=== PATIENT | male | born 1940 | race Caucasian/White ===

== ENCOUNTER 2024-10-31 14:34 | Inpatient (IN) | payer OTHER, SELFPAY ==
[2024-10-31 12:34] VITALS: BP 95/78
[2024-10-31] MEDS: LOW STRENGTH ASPIRIN 324 MG PO (12:41)
--- NOTE | 2024-10-31 12:48 | PTCARENOTE ---
Pt transferred from [facility] and arrived to recovery room at 1225. Pt awake, alert, and oriented x3. Pt ambulated from ambulance stretcher onto test lab technician recovery room stretcher. Pt appears JENKINS but denies feeling short of breath. Pulse ox
85% after ambulating to stretcher. Pt placed on 4L NC. Repeat pulse ox 91% on 2L NC. Lungs with rales all the way up. Claudia WARREN at pt bedside made aware and assessed pt's lung sounds. Dr Cheek at pt bedside and aware of pt's lung status.
Ham ordered to bring pt directly to test lab technician procedure room to start a right heart catheterization. Aspirin 81mg x 4 tablets given as ordered per Claudia WARREN. Pt taken into procedure room via stretcher with RN.
[2024-10-31 14:03] VITALS: BMI 27.1
--- NOTE | 2024-10-31 14:04 | HPS.HSE ---
Family Physician
-
Family Physician: NO INTERVIEW UNKNOWN
Chief Complaint
-
Syncope
History of Present Illness
Patient is an 84 y/o male past medical history of paroxysmal atrial fibrillation, hypertension, hyperlipidemia and hypothyroidism who was transferred from [facility] today for urgent cardiac catheterization. Patient initially presented to
[facility] last evening. He was admitted to the hospital after he had a syncopal, and was found to be hypoxic as well as in A-Fib with RVR. Overnight his troponin tended up significantly and he was transferred to [facility] for
cardiac catheterization. Patient seen post cardiac cath in the CVICU.
Medical History
Past Medical History
Past Medical History: Reports Other
Additional Past Medical History:
Severe Aortic Stenosis
Permanent Atrial Fibrillation
Essential Hypertension
Hyperlipidemia
CKD Stage IIIA
Hypothyroidism
GERD
Gout
Past Surgical History: Reports Other
Additional Past Surgical History:
Cholecystectomy
Social History
Tobacco: Former Smoker (Quit in 1995)
Alcohol: Occasional (Once a week)
Personal:
Living: With Family
Family History
Family History: Not pertinent
Allergies / Home Medications
Allergies reflects when Allergies were last updated in [facility]
Home Medications with original date entered in [facility].
Allergy/Medication List:
Allergies
Allergy/AdvReac Type Severity Reaction Status Date / Time
No Known Allergies Allergy Verified 10/31/24 12:41
Home Medications
allopurinol 100 mg tablet 100 mg BID 10/31/24
amlodipine 5 mg tablet 5 mg BID 10/31/24
apixaban 5 mg tablet 5 mg PO BID 10/31/24
levothyroxine 75 mcg tablet 75 mcg DAILY 10/31/24
lisinopril 10 mg tablet 10 mg DAILY 10/31/24
metoprolol tartrate 50 mg tablet 50 mg BID 10/31/24
multivitamin with iron-mineral tab 10/31/24
omega-3 fatty acids 1,000 mg PO DAILY 10/31/24
pravastatin 40 mg tablet 40 mg DAILY 10/31/24
Review of Systems
-
A 12 point ROS was completed and negative except as noted: Yes
Constitutional: Denies Fever
Respiratory: Reports Trouble Breathing; Denies Cough
Cardiac: Denies Chest Pain or Palpitations
Physical Exam
Vital Signs
Selected Entries
10/31/24
14:38 10/31/24
15:00
Pulse 107
Resp Rate 17
Blood pressure 107/88
SaO2 92
Physical Exam
General: Well Developed, Well Nourished and No Apparent Distress
HEENT: NormoCephalic, Anicteric, Moist mucous membranes, Atraumatic and Oxygen (Nasal Cannula @ 6L)
Respiratory: Clear and Non Labored Respirations; No Wheezes, Rales or Rhonchi
Cardiac: S1/S2 and Irregular Rhythm; No Tachycardia
GI: Soft, Non Tender and Non Distended
Rectal: Deferred by Provider
Musculoskeletal: No Clubbing, No Cyanosis and No Edema
Skin: Warm and Dry; No Rash
Neuro: Awake, Alert, Oriented and Nonfocal/grossly intact
Psych: Calm
Laboratory Results
-
Laboratory Data 10/31/24
WBC 10.4
Hgb 14.1
Hct 42.5
Plt 175
Na 136
K 5.2
Cl 103
CO2 18
BUN 27
Cr 1.69
Glu 217
Chest X-Ray 10/30/2024
Mild cardiomegaly with interstitial pulmonary edema
Renal/Bladder US 10/31/2024:
Unremarkable ultrasound of kidneys and bladder
Data Reviewed
-
Diagnostic Radiology: Report Reviewed by me
Lab Data: Labs Reviewed by me
Old Records: Reviewed
Impression/Plan
-
Acute Hypoxic Respiratory Failure secondary to Acute Heart Failure
-Continue supplemental oxygen
NSTEMI
-Patient underwent cardiac cath today with evidence of multivessel disease
-Continue heparin drip
-Management as per cardiology
Acute Heart Failure, suspect preserved EF
-[facility] records indicate known severe aortic stenosis
-Continue Lasix 80mg IV BID
-Monitor Is&Os and Daily Weights
VERENICE on CKD IIIA
-Appears baseline Cr ~1.2
-Consult Nephrology
-Monitor creatinine closely following contrast for cardiac cath and diuretics for heart failure
Elevated Glucose
-Check HgbA1c
-Continue diabetic diet
-Monitor sugars and continue coverage insulin
Permanent Atrial Fibrillation
-Rate is now controlled
-Currently on heparin drip for anticoagulation
Essential Hypertension
-BP running on the low side
-Hold all meds for now
Hyperlipidemia
-Change pravastatin to Lipitor
Hypothyroidism
-Continue levothyroxine
DVT proph: Heparin drip
Code Status: Full Code
[2024-10-31 14:38] VITALS: BP 107/88
--- NOTE | 2024-10-31 14:50 | CONSULT.CT ---
Consultation
-
Date/Time Consultation Requested: 10/31/24 14:30
Date/Time Consultation Performed: 10/31/24 15:00
Requesting Provider: Roldan Cheek MD
Performing Provider: Nolan Morrison PA-C
Reason for Consultation: CAD,
Patient History
Physicians
Family Physician: Laura Cm MD
Outpatient Food Concession Manager: Jose Luis Mehta MD
Inpatient Food Concession Manager: López Philip MD
History of Present Illness
84 year old male with h/o , AF (on Eliquis), HTN, HLD, CKD, hypothyroid, spinal stenosis who presented to [facility] with fatigue, dizziness, SOB after taking out the trash. He was found to have an elevated troponin (1745 that increased to 2545) and BNP
of 6806. He was given diuretic and transferred to [place] for cardiac workup. 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
Past Medical History
Past Medical History: Atrial Fib, GERD, HTN, Hypercholesterolemia and Hypothyroidism
CKD (baseline Cr 1.2), gout, spinal stenosis, nonalcoholic fatty liver disease
Past Surgical History
Past Surgical History: Cholecystectomy
Family History
Mother: at Age
Father: at Age (60-65) and Cause of ([place])
Social History
Alcohol: Occasional (once per week)
Drug: None
Tobacco: Former Smoker
Personal:
Living: With Spouse
Employment: Retired
Allergies
Allergy/AdvReac Type Severity Reaction Status Date / Time
No Known Allergies Allergy Verified 10/31/24 12:41
Home Medications
�Medication �Instructions �Recorded �Confirmed �Type
allopurinol 100 mg tablet 100 mg BID 10/31/24 10/31/24 History
amlodipine 5 mg tablet 5 mg BID 10/31/24 10/31/24 History
apixaban 5 mg tablet 5 mg PO BID 10/31/24 10/31/24 History
levothyroxine 75 mcg tablet 75 mcg DAILY 10/31/24 10/31/24 History
lisinopril 10 mg tablet 10 mg DAILY 10/31/24 10/31/24 History
metoprolol tartrate 50 mg tablet 50 mg BID 10/31/24 10/31/24 History
multivitamin with iron-mineral tab 10/31/24 History
omega-3 fatty acids 1,000 mg PO DAILY 10/31/24 10/31/24 History
pravastatin 40 mg tablet 40 mg DAILY 10/31/24 10/31/24 History
Review of Systems
-
History Source: Patient and Transfer Record
General: Reports Fatigue; Denies Fever, Weight Loss or Chills
HEENT: Reports Dysphagia (must chew food well); Denies Visual Changes or Sore Throat
Respiratory: Reports SOB and Cough; Denies JENKINS
Cardiac: Reports Known Vascular Disease and Palpitations; Denies Chest Pain, Nausea, Vomiting, Diaphoresis or Edema
Abdomen/GI: Reports Reflux; Denies Abdominal Pain
: Reports Frequency; Denies Dysuria, Incontinence or Urgency
Musculoskeletal: Reports Other (back pain due to spinal stenosis)
Skin: Denies Rash
Neurological: Reports Dizzy; Denies CVA
Vascular: Denies Claudication or PVD
Physical Exam
Vital Signs
Actual Weight 173 lb 10/31/24 14:03
Body Mass Index (BMI) 27.1 10/31/24 14:03
Exam
General: Well Developed and Well Nourished
HEENT: Normocephalic, Anicteric, Atraumatic, PERRLA and EOMI
Respiratory: Wheezes (occassional ); Negative Rhonchi
Cardiac: Irregular Rhythm; Negative Murmur
GI: Soft, Non Tender, Non Distended and Normal Bowel Sounds
Rectal: Deferred by Provider
Skin: Warm and Dry; Negative Rash
Neuro: AO x 3 and Nonfocal/Grossly Intact
Extremities: Negative Lower Level Edema
Psych: Calm
Assessment / Plan
-
3VCAD, known
patient is an 84 year old male who was found to have 3VCAD. His last dose of Eliquis was 10/30 at 21:00. Need time for Eliquis washout and renal recovery post LHC. Will need CYNDY to better evaluate and MR. STS risk calculation was done and
follows:
Procedure Type:�CABG + AVR
Perioperative Outcome Estimate %
Operative Mortality 15.6%
Morbidity & Mortality 36.2%
Stroke 2.91%
Renal Failure 15%
Reoperation 5.25%
Prolonged Ventilation 29.3%
Deep Sternal Wound Infection 0.235%
Long Hospital Stay (>14 days) 30%
Short Hospital Stay (<6 days)* 6.25%
Procedure Type:�Isolated CABG
Perioperative Outcome Estimate %
Operative Mortality 16%
Morbidity & Mortality 30.4%
Stroke 3.51%
Renal Failure 13.5%
Reoperation 5.21%
Prolonged Ventilation 19.6%
Deep Sternal Wound Infection 0.208%
Long Hospital Stay (>14 days) 25.2%
Short Hospital Stay (<6 days)* 10.5%
Will d/w Dr. Yang. Please see his addendum for further recommendations and plan.
Data Reviewed
-
EKG: Tracing Personally Visualized and interpreted
Downstairs Maid: Image Personally Visualized and interpreted and Discussed with Family
Labs: Labs Reviewed by me
Old Records: Reviewed
--- NOTE | 2024-10-31 14:51 | CON.INTV ---
Consultation
Consultation Request
Date/Time Consultation Requested: 10/31/2024 - 1423
Date/Time Consultation Performed: 10/31/2024 - 1439
Requesting Provider: Nahomy Ford PA-C
Performing Provider: Dr. López
Reason for Consultation: Shock
Medical History
-
Chief Complaint: Lightheadedness
History of Present Illness:
84-year-old male with a past medical history of aortic stenosis, A-fib on Eliquis, hyperlipidemia and CKD who presented to [facility] after syncopal event. Pt was originally going to go to ER due to RLE pain. He passed out while getting
into his car - 911 called and when they arrived he was in respiratory distress, tachycardic and diaphoretic. He was placed onto O2 and was hypoxic upon arrival to [facility] with SpO2 87% on NC (unclear how much flow). He was switched to BiPAP with
improved respiratory status. EKG showed A-fib with RVR with concerning EKG changes with inferior and anterolateral ST depressions with lateral T wave inversions. CXR also showed interstitial pulmonary edema. He was transferred here to [place]
for cardiac catheterization. Patient was hypotensive with concern for cardiogenic shock. Pnp/pulmonary service now consulted for additional management/recommendations.
When I saw the pt he was in bed in [facility], with daughter, Carmen, at bedside. Garcia is not a good historian. He currently feels well. He reportedly had a prior echo that showed a 'normal' EF, per the daughter. Currently, HR 95, SpO2 93% on 6L/min,
although the nasal cannula was nursing home out of his nose, and BP 99/79. He denies SOB at rest, chest pain, ALSTON, abd pain, N/V/f/c.
PMHx: Severe , permanent A-fib on Eliquis, gout, HTN, CKD IIIa, hypothyroidism, GERD, sciatica
PSHx: Cholecystectomy
Past Medical History
Past Medical History: Other (Above as per HPI)
Past Surgical History: Other (Above as per HPI)
Social History
Tobacco: Former Smoker (Quit 1995; 20 pack-year Hx)
Alcohol: Occasional (1-2 beers per week)
Drug: None
Personal:
Living: With Family
Family History
Family History: CAD and Hypertension
Allergies / Home Medications
Allergies
Allergy/AdvReac Type Severity Reaction Status Date / Time
No Known Allergies Allergy Verified 10/31/24 12:41
Home Medications
�Medication �Instructions �Recorded �Confirmed �Last Taken �Type
allopurinol 100 mg tablet 100 mg PO BID 10/31/24 10/31/24 Unknown History
amlodipine 5 mg tablet 5 mg PO BID 10/31/24 10/31/24 Unknown History
apixaban 5 mg tablet 5 mg PO BID 10/31/24 10/31/24 10/30/24 21:45 History
levothyroxine 75 mcg tablet 75 mcg PO DAILY 10/31/24 10/31/24 Unknown History
lisinopril 10 mg tablet 10 mg PO DAILY 10/31/24 10/31/24 Unknown History
metoprolol tartrate 50 mg tablet 50 mg PO BID 10/31/24 10/31/24 Unknown History
multivitamin with iron-mineral 1 tab PO DAILY 10/31/24 10/31/24 Unknown History
omega-3 fatty acids 1,000 mg PO BID 10/31/24 10/31/24 Unknown History
omeprazole 20 mg capsule,delayed 20 mg PO DAILY 10/31/24 10/31/24 Unknown History
release
pravastatin 40 mg tablet 40 mg PO DAILY 10/31/24 10/31/24 Unknown History
Review of Systems
-
History Source: Patient
All other systems: Negative unless noted
Vitals / Labs / Diagnostic Testing
Vital Signs
Pulse Resp BP Pulse Ox
107 17 107/88 92
10/31/24 15:00 10/31/24 15:00 10/31/24 14:38 10/31/24 15:00
Lab Data
10/31/24 14:51
Laboratory Results
10/31/24
14:51
APTT > 200 H*
Diagnostic Testing:
Physical Exam
-
HEENT: Normocephalic and Anicteric
Cardiovascular: Irregular Rhythm and Peripheral Edema (negative)
Respiratory: Wheeze (negative), Rales (bibasilar), Rhonchi (negative) and Non-Labored Respirations
GI: Soft, Non Distended, Non Tender and Normal Bowel Sounds
Neurology: AO x 3 and Tremors (negative)
Skin: Warm and Dry
General: Respiratory Distress (negative), Comfortable, Fever (negative) and Chills (negative)
Assessment
-
Assessment: 84-year-old male with a past medical history of aortic stenosis, A-fib on Eliquis, hyperlipidemia and CKD who presented to [facility] after syncopal event. EKG showed A-fib with RVR with concerning EKG changes with inferior and
anterolateral ST depressions with lateral T wave inversions. CXR also showed interstitial pulmonary edema. He was transferred here to [place] for cardiac catheterization. Patient was hypotensive with concern for cardiogenic shock.
Pnp/pulmonary service now consulted for additional management/recommendations.
Chronic medical conditions: Severe , CHF, permanent A-fib on Eliquis, gout, HTN, CKD IIIa, hypothyroidism, GERD, sciatica
Impression:
#Acute HFrEF
#Acute cardiogenic pulmonary edema
#Acute hypoxic respiratory failure
#Syncope
#Severe aortic stenosis
#Elevated troponin likely due to NSTEMI
#A-fib with RVR (on eliquis as outpatient for permanent A-fib)
#VERENICE on CKD
#Former tobacco smoker (20-PY Hx - quit 1995)
#Gout
#Hypothyroidism
#Sciatica
Plan:
- Patient transferred here to [facility] for left heart catheterization which showed multivessel CAD without good PCI targets
- CT surgery evaluation pending for evaluation for CABG
- Eliquis on hold
- Continue with heparin drip for now as well as high intensity statin
- As per cardiology, echo performed on 10/30/2024 showed severely decreased LVEF at 25-30% (down from 55%) with severe with low gradient across AV with apico-lateral hypokinesis
- Maintain SpO2 >94% with supplemental oxygen and wean down as tolerated
- Would obtain CXR; assure all medical records from [facility] are available for all providers to review
- Maintain MAP>65
- Although patient hypotensive, MAP is currently >85 and he is asymptomatic with no SOB or chest pain. 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
avoid inotropes as this will raise myocardial oxygen demand and could worsen myocardial injury in this acute period of time
- Start IV lasix as BP tolerates
- Renally dose all meds; trend UOP and sCr; strict I/O
- Replete electrolytes with K>4, Mg>2
- Continue levothyroxine
- Maintain euglycemia with goal BG 140-180
- Trend H/H and transfuse if needed to keep Hb>7g/dL; keep plt>20k, unless there is concern for bleeding then keep plt>50k
- prn nebulized bronchodilators - not currently bronchospastic
- Incentive spirometer encouraged 10x per hour for at least 4 hrs a day
- DVT ppx - heparin gtt
Code status: Full code
Pnp services will continue to follow along while patient remains in the CVICU.
Critical care statement: A total of 38 minutes of critical care time was provided for this patient today. This includes management of unstable vital signs, evaluation of the patient at bedside, reviewing the patient's pertinent medical records
including radiographs, microbiology, laboratory evaluations, and discussion with primary team, consultants, pharmacy, nutrition, physical therapy, case management, charge nurse, critical care nursing, and respiratory therapy.
[2024-10-31 15:11] LABS: Hematocrit 41.4 % (39.0-52.0); Mean Corp Hgb Conc. 33.8 g/dL (33.0-37.0); Mean Corpuscular Hgb 29.1 pg (27.0-31.0); Mean Corpuscular Volume 86.1 fL (80.0-94.0); Mean Platelet Volume 11.9 fL (7.4-10.4); Platelet Count 189 10^3/uL (130-400); Red Blood Cell Count 4.81 10^6/uL (4.70-6.10); Red Cell Dist. Width 14.6 % (11.5-14.5); White Blood Cell Count 18.2 10^3/uL (4.8-10.8)
--- NOTE | 2024-10-31 15:45 | CM ---
Reviewed chart. Met with Mr. Dunn to review discharge plans. He states prior to admission he resides withhis spouse in a one story home with one step to enter. He states prior to admission he was ambulating with a walker. He states he has a
walker and single point cane at home. He states he has a prescription plan and uses [facility]. He states he has never had [facility]. He states his spouse has had [facility]. Will need to see his current functional level to see if he
will have any skilled care needs. Medical work-up in progress. The discharge plan is to reutn home with his spouse and [facility] Services if idicated when medically stable.
[2024-10-31 15:51] LABS: APTT > 200 Sec (23.4-35.0)
--- NOTE | 2024-10-31 16:02 | W.PN.UPDATE ---
Update Note
Progress Note Update
HPI: 84 y/o male past medical history of Permanent atrial fibrillation, hypertension, hyperlipidemia, hypothyroidism; who was transferred from [facility] for urgent cardiac catheterization. Patient initially presented to [facility]
the evening prior for syncope. He was also found to be hypoxic with A-Fib in RVR. Overnight his troponin tended up significantly and he was transferred to [facility] for cardiac catheterization. Patient seen post cardiac cath in the CVICU.
A/P:
# Acute Hypoxic Respiratory Failure secondary to Acute Heart Failure
Continue supplemental oxygen
Continue Lasix 80mg IV BID
# NSTEMI
Patient underwent cardiac cath 10/31 with evidence of multivessel disease. Follow formal report.
Continue heparin drip per gas brazer
Management as per cardiology
# Acute Heart Failure, suspect preserved EF
# Known severe aortic stenosis
Continue Lasix 80mg IV BID
Monitor Is&Os and Daily Weights
# VERENICE on CKD IIIA
Appears baseline Cr ~1.2
Consult Nephrology
Monitor creatinine closely following contrast for cardiac cath and diuretics for heart failure
# Elevated Glucose
Check HgbA1c
Continue diabetic diet
Monitor sugars and continue coverage insulin
# Permanent Atrial Fibrillation
Rate is now controlled
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
# Essential Hypertension
BP running on the low side
Hold all meds for now
# Hyperlipidemia
Change pravastatin to Lipitor
# Hypothyroidism
Continue levothyroxine
DVT proph: Heparin drip
Code Status: Full Code
--- NOTE | 2024-10-31 16:09 | PTCARENOTE ---
received patient from orthodontic lab technician. TR band on R Radial site with 6cc air. Pulse ox 98% NRB. weaned to 6L nc. pulse ox 94% on R hand. Pulses palpablex4. R groin site c/d/i. AFIB on monitor. HR 90s. VSS. no complaints at this time. EKG and labs drawn as
ordered. will restart hep gtt as ordered. daughter at bedside helping with admission questions. will continue to monitor.
[2024-10-31 16:12] VITALS: BP 99/79
[2024-10-31 16:21] VITALS: BMI 27.1
--- NOTE | 2024-10-31 16:43 | CON.CAR ---
Consultation
Consultation Request
Performing Provider: BRIANA Bernard for López Philip MD
Reason for Consultation: NSTEMI, Acute on chronic HFrEF
Medical History
-
History of Present Illness:
Garcia Dunn is an 84 year old male patient of Dr. Mehta with the PMH of severe , persistent AF, HTN, HLD and CKD3 who presented to the Emergency room for evaluation after a syncopal event. Pt was initially coming to the ED with his family for
evaluation of R leg pain with known sciatica. While getting into his vehicle he had a syncopal event and 911 was called. EMS found him diaphoretic, tachycardic and SOB with audible wheezing. Supplemental 02 was given and upon arrival to the ED he
was 87% on NC with HR 110bpm and RR 39. NC was upgraded to Bipap with improvement. CXR showed interstitial pulmonary edema. EKG showed AF with RVR with inferior and anterolateral ST depressions and lateral TWI�s.
Treated with IV lasix, IV diltiazem, IV heparin.
Lactic acid 8.5, HS troponin 4125, peak CK/MB 1438/162.
An echo yesterday showed severely decreased LVSF 25-30% (down from 55%) with severe with low gradients and apical lateral HK.
Transferred today for LHC/RHC. On arrival he was on 4LNC and dyspneic with HR AFib 100s, SBP 90s.
Past Medical History
Past Medical History: Arrhythmias (PAF), CHF (acute on chronic systolic HFrEF), GERD, HTN, Hypercholesterolemia, Hypothyroidism, Renal Failure (CKD3a), Valvular Disease (Severe , Mild-Mod MR) and Other (Thrombophilia, Lumbar spinal stenosis
w/radiculopathy, impaired fasting glucose, fatty liver, gout)
Past Surgical History: Appendectomy and Other (cataract extraction)
Social History
Tobacco: Former Smoker (20pyh, quit 1995)
Alcohol: Occasional (1-2 beers once a week)
Drug: None
Personal:
Living: With Family
Employment: Retired
Family History
Family History: CAD and Hypertension
Allergies / Home Medications
Allergy/AdvReac Type Severity Reaction Status Date / Time
No Known Allergies Allergy Verified 10/31/24 12:41
�Medication �Instructions �Recorded �Confirmed �Type
allopurinol 100 mg tablet 100 mg PO BID 10/31/24 10/31/24 History
amlodipine 5 mg tablet 5 mg PO BID 10/31/24 10/31/24 History
apixaban 5 mg tablet 5 mg PO BID 10/31/24 10/31/24 History
levothyroxine 75 mcg tablet 75 mcg PO DAILY 10/31/24 10/31/24 History
lisinopril 10 mg tablet 10 mg PO DAILY 10/31/24 10/31/24 History
metoprolol tartrate 50 mg tablet 50 mg PO BID 10/31/24 10/31/24 History
multivitamin with iron-mineral 1 tab PO DAILY 10/31/24 10/31/24 History
omega-3 fatty acids 1,000 mg PO BID 10/31/24 10/31/24 History
omeprazole 20 mg capsule,delayed 20 mg PO DAILY 10/31/24 10/31/24 History
release
pravastatin 40 mg tablet 40 mg PO DAILY 10/31/24 10/31/24 History
Review of Systems
-
History Source: Patient
All other systems: Negative unless noted
Respiratory: Trouble Breathing (Dyspnea at rest)
Cardiac: Diaphoresis and Palpitations
Physical Exam
Vital Signs
Temp Pulse Resp BP Pulse Ox
98.6 F 86 26 107/88 94
10/31/24 16:35 10/31/24 16:35 10/31/24 16:35 10/31/24 14:38 10/31/24 16:35
Lab Results
10/31/24 14:51
Physical Exam
General: Respiratory Distress (dyspneic at rest)
HEENT: Normocephalic
Respiratory: Crackles (fine rales bilaterally throughout)
Cardiac: S1/S2, Irregular Rhythm and Murmur (2/6 holosystolic)
GI: Soft, Non Tender and Non Distended
Musculoskeletal: No Edema (palpable distal pulses)
Skin: Warm and Dry
Neuro: AO x 3
Impression / Plan
-
PCP: Laura Cm MD
CDY: Jose Luis Mehta MD
84 y/o, severe presented with acute on chronic heart failure with hypoxic respiratory failure and pulmonary edema as well as rapid AFib. Treated with IV diuresis as well as BiPap support, IV diltiazem and heparin.
Workup revealed elevated HS troponin 4125, CK/MB 1438/162 peaks. Echo with new decreased systolic function with EF 25-30%, worsening , and apical lateral HK. Transferred to for R/LHC today. On arrival he was dyspneic at rest on 4LNC, SBP 90s.
IMPRESSION:
Acute on Chronic HFrEF 25-30%
Acute pulmonary edema
Acute hypoxic respiratory failure
Syncope
Severe
NSTEMI/Elevated troponin/CK
AFib/RVR
Lactic acidosis
VERENICE on CKD3a
HTN
HLD
Hypothyroid
GERD
Thrombophilia
Gout
PLAN:
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
Given 80mg IV lasix in the [facility] post procedure
BNP 6800, CXR w/congestion- treated with IV lasix- will continue 80mg IV BID for now
repeat CXR today and in AM
watch creat with dye load and increased lasix requirements- check in AM
max hugh GDMT- hold becki/arb d/t CKD and currently hypotensive
supplemental O2 with BiPAP support as needed
concern for cardiogenic shock
repeat lactic acid, pressors if needed for BP
severe - would consider TAVR eval while here- PG/MG 48.4/30.9, BAUDILIO 0.28cm2
afib- would keep on heparin gtt for now and restart eliquis when stable
may need cardioversion to help with cardiomyopathy
[id number], on Eliquis 5mg BID- would dose adjust to 2.5mg BID based on creat/age.
CKD3a- creat baseline 1.2 and up to 1.6 today- repeat in AM
Data Reviewed
-
EKG: Tracing Personally Visualized and interpreted and Report Reviewed by me
Radiology: Report Reviewed by me
Medical Tests (Nuc Med, Echo etc): Report Reviewed by me
Labs: Labs Reviewed by me and Discussed with Physician
Old Records: Reviewed
Total Time Spent with Patient (in minutes): 90
--- NOTE | 2024-10-31 16:45 | W.CON.NEPH ---
Consultation
-
Date/Time Consultation Requested: 10/31/2024 2 PM
Date/Time Consultation Performed: 10/31/2024 4 PM
Requesting Provider: Dr. Masters
Performing Provider: Dr. Trujillo
Reason for Consultation: VERENICE
Medical History
-
Chief Complaint: Syncope
History of Present Illness:
Patient is an 84 y/o male with atrial fibrillation, hypertension on anticoagulation, hyperlipidemia on statin therapy well-controlled and CKD 3A baseline creatinine 1.2 who was transferred from [facility] 10/31/2024 for urgent cardiac
catheterization. Patient initially presented to [facility] 10/30/2024. He was admitted to the hospital after he had a syncopal episode, and was found to be hypoxic as well as in A-Fib with RVR. Overnight his troponin tended up
significantly and he was transferred to [facility] for cardiac catheterization. He had lactic acidosis and elevated creatinine at the time of admission which had worsened today. His lactic acid did improve however. He did diurese without
complication with Lasix. Reportedly cardiac catheterization today revealed three-vessel disease. He also has known severe aortic stenosis.
Of note he recalls that back in 2016 he had acute appendicitis. By his daughter's recollection he had received a strong antibiotic which after 3 days time may have resulted in an anaphylactic reaction resulting in acute kidney injury and
lightheadedness. The medication was discontinued but he did require dialysis for several treatments in-house. There does not appear to be an allergy listed at [facility]. Is possible that the acute kidney injury may have been related more
to contrast and sepsis although his records are not currently available.
Past Medical History
Severe Aortic Stenosis
Permanent Atrial Fibrillation
Essential Hypertension
Hyperlipidemia
CKD Stage IIIA (1.2)
Hypothyroidism
GERD
Gout
appendectomy, complicated by VERENICE dialysis temporary
cataract sx
preDM
fatty liver
spinal stenosis
lumbar radiculopathy
Social History
Tobacco: Former Smoker
Alcohol: Occasional
Family History
Family History: Not Pertinent
Allergies / Home Medications
Allergy/AdvReac Type Severity Reaction Status Date / Time
No Known Allergies Allergy Verified 10/31/24 12:41
�Medication �Instructions �Recorded �Confirmed �Type
allopurinol 100 mg tablet 100 mg PO BID 10/31/24 10/31/24 History
amlodipine 5 mg tablet 5 mg PO BID 10/31/24 10/31/24 History
apixaban 5 mg tablet 5 mg PO BID 10/31/24 10/31/24 History
levothyroxine 75 mcg tablet 75 mcg PO DAILY 10/31/24 10/31/24 History
lisinopril 10 mg tablet 10 mg PO DAILY 10/31/24 10/31/24 History
metoprolol tartrate 50 mg tablet 50 mg PO BID 10/31/24 10/31/24 History
multivitamin with iron-mineral 1 tab PO DAILY 10/31/24 10/31/24 History
omega-3 fatty acids 1,000 mg PO BID 10/31/24 10/31/24 History
omeprazole 20 mg capsule,delayed 20 mg PO DAILY 10/31/24 10/31/24 History
release
pravastatin 40 mg tablet 40 mg PO DAILY 10/31/24 10/31/24 History
Physical Exam
Vital Signs
Vital Signs
Temp Pulse Resp BP Pulse Ox
98.6 F 86 26 107/88 94
10/31/24 16:35 10/31/24 16:35 10/31/24 16:35 10/31/24 14:38 10/31/24 16:35
Lab Results
WBC 18.2 10^3/uL (4.8-10.8) H 10/31/24 14:51
RBC 4.81 10^6/uL (4.70-6.10) 10/31/24 14:51
Hgb 14.0 g/dL (13.0-18.0) 10/31/24 14:51
Hct 41.4 % (39.0-52.0) 10/31/24 14:51
Plt Count 189 10^3/uL (130-400) 10/31/24 14:51
April 2024 creatinine 1.175
10/30/2024 creatinine 1.48, bicarbonate 12, BUN 24, lactic acid 8.5
10/31/2024 creatinine 1.69, potassium 5.2, bicarbonate 18, lactic acid 2.3, calcium 9.9
Physical Exam
Patient is awake alert oriented and in no distress. Mood and affect were pleasant, insight and judgment were good. Pupils are equal round and reactive to light, extraocular movements are intact, sclera were anicteric. Hearing was normal, ears and
nose are intact. Oropharynx was clear. Neck was supple with trachea midline and no thyromegaly. Heart was regular rate and rhythm without rubs. Lower extremities without edema. Lungs were coarse to auscultation bilaterally with rales and with
normal excursion. Abdomen was soft, nontender, with normal active bowel sounds, and no hepatosplenomegaly. Skin was without rash and with normal turgor.
Data Reviewed
-
Radiology: Report Reviewed by me (Chest x-ray 10/30/2024 cardiomegaly pulmonary edema)
Ultrasound: Report Reviewed by me (Renal ultrasound 10/31/2024 right kidney 9.6 cm left kidney 10 cm no mass no hydronephrosis)
Medical Tests (Nuc Med, Echo etc): Image Personally Visualized and interpreted (EKG 10/31/2024 by my reading a flutter prolonged QT ST depression nonspecific T wave abnormality)
Labs: Labs Reviewed by me
Old Records: Reviewed
Assessment/Plan
-
Assessment
Non-ST elevation DE
Acute kidney injury
CKD 3A baseline 1.2
Prediabetes
Atrial fibrillation
Severe aortic stenosis
Hypertension now hypotension
Plan
I discussed with the patient and his daughter at great length regarding his acute kidney injury. Is likely due to heart failure.
We will now also need to watch for contrast-induced nephropathy
We cannot give IV fluids at this time given his acute heart failure requiring diuresis instead
Follow lactate level
Follow BMP
Certainly repeat catheterization will need to be delayed until the trend of his creatinine can be seen. Fortunately there is no urgency to cardiac intervention in the next 24 to 48 hours
Check urine studies
[2024-10-31] MEDS: HEPARIN 25000 UNITS/250 ML IV (17:43)
[2024-10-31] MEDS: LIPITOR 40 MG PO (17:46)
[2024-10-31 18:05] LABS: Urine Albumin Negative (Neg - Trace); Urine Bilirubin Negative (Negative); Urine Character Clear (Clear); Urine Color Yellow; Urine Glucose Negative (Negative); Urine Ketone Negative (Negative); Urine Leukocyte Negative (Negative); Urine Nitrite Negative (Negative); Urine Occult Blood Negative (Negative); Urine Urobilinogen Negative (Neg - 1+)
[2024-10-31 18:18] LABS: Lactic Acid 2.4 mmol/L (0.7-2.0)
[2024-10-31 18:24] LABS: Urine Sodium 96 mmol/L (30-90)
[2024-10-31 18:38] LABS: Blood Urea Nitrogen 36 mg/dl (9-20); Calcium 9.6 mg/dl (8.4-10.2); Carbon Dioxide 19 mmol/L (22-30); Chloride 108 mmol/L (98-107); Estimated Creatinine Clearance 33 ml/min; Glucose 139 mg/dl (70-99); Potassium 4.7 mmol/L (3.5-5.1); Sodium 139 mmol/L (135-145); eGFR 42.49
[2024-10-31] MEDS: NOVOLOG FLEXPEN-LOW RESISTANCE SC (19:00)
--- NOTE | 2024-10-31 19:00 | PTCARENOTE ---
assumed care of patient @ 1900. received pt laying in bed, Aox3. forgetful at times. AFIB on monitor HR 90s-100s, ocasionally tachy to 120 with ambulation. + pulses, no edema noted. Lungs coarse, diminished on 6L satting mid 90s. JENKINS. Tolerating
diet , apparently was heavily coughing with food intake earlier. Pt admits he does frequently choke on food. Straight cathed earlier today, will follow bladder scans. R radial and R groin sites CDI, soft, no hematoma. PIV x3 patent. Heparin running
at 9.5, next PTT due at midnight. Pt did stand up on own and removed tele box, oxygen, blood pressure cuff, thought he was at home. assisted back to bed, bed alarm turned on . pt now resting comfortably in bed with call santiago within reach .
[2024-10-31 19:23] VITALS: BP 95/71
[2024-10-31] MEDS: MELATONIN 5 MG PO (22:57)
[2024-11-01] VITALS (46 sets, daily range): BP systolic 84–125; BP diastolic 53–101; PULSE 2–121; BMI 26.6
--- NOTE | 2024-11-01 | PTCARENOTE ---
pt resting comfortably, no change in assessment
[2024-11-01 00:33] LABS: APTT 60.8 Sec (23.4-35.0)
[2024-11-01 00:35] LABS: Glucose - Point of Care 114 mg/dl (70-99)
[2024-11-01 04:12] LABS: Hemoglobin 14.3 g/dL (13.0-18.0); Mean Corpuscular Hgb 29.3 pg (27.0-31.0); Mean Corpuscular Volume 86.1 fL (80.0-94.0); Mean Platelet Volume 11.2 fL (7.4-10.4); Platelet Count 214 10^3/uL (130-400); Red Blood Cell Count 4.88 10^6/uL (4.70-6.10); Red Cell Dist. Width 14.8 % (11.5-14.5); White Blood Cell Count 20.1 10^3/uL (4.8-10.8)
[2024-11-01 04:36] LABS: Lactic Acid 2.8 mmol/L (0.7-2.0)
[2024-11-01] MEDS: DUONEB 3 ML INH (04:44)
[2024-11-01] MEDS: LASIX 80 MG IV (04:53)
--- NOTE | 2024-11-01 04:59 | PTCARENOTE ---
pt pulse ox alarming in the 80s. on assessment, pt noted to be SOB and tachypneic in 30s with increased ectopy on the monitor. Lung sounds with loud wheezing and crackles. placed on NRB, CTPA notified who ordered stat breathing treatment, CXR, and
morning dose of 80 IV lasix to be given early. Pt states feels better after breathing treatment. now on midflow 15L satting high 90s. pt coughing bringing up thick aponte mucous.
[2024-11-01 05:12] LABS: ALT (SGPT) 49 U/L (0-50); AST (SGOT) 156 U/L (17-59); Albumin 3.6 g/dl (3.5-5.0); Alkaline Phosphatase 72 U/L (38-126); Blood Urea Nitrogen 41 mg/dl (9-20); Calcium 9.6 mg/dl (8.4-10.2); Carbon Dioxide 19 mmol/L (22-30); Chloride 108 mmol/L (98-107); Direct Bilirubin 0.3 mg/dl (0.0-0.4); Estimated Creatinine Clearance 35 ml/min; Glucose 131 mg/dl (70-99); HDL Cholesterol 64 mg/dl; LDL Cholesterol, Calculated 84 mg/dl; Phosphorus 4.2 mg/dl (2.5-4.5); Potassium 4.6 mmol/L (3.5-5.1); Sodium 140 mmol/L (135-145); Total Cholesterol 176 mg/dl (50-199); Total Protein 6.9 g/dl (6.3-8.2); Triglyceride 140 mg/dl (10-149); Very Low Density Lipoprotein 28 mg/dl (0-30); eGFR 45.91
[2024-11-01] MEDS: LANOXIN 500 MCG IV (05:41)
[2024-11-01 05:42] LABS: TSH Reflex To Free T4 2.76 uIU/ml (0.47-4.68)
--- NOTE | 2024-11-01 06:27 | PTCARENOTE ---
dig ordered and given, pt placed on BIPAP by RT for respiratory distress and pulmonary edema. 12/5 pt satting 94%.
--- NOTE | 2024-11-01 06:33 | W.PN.UPDATE ---
Update Note
Progress Note Update
-came in to see pt @ 4:30 am for respiratory distress. He was uncomfortable, wheezing, and using accessory muscles to breath. pOx was 88-90% on 6L. Gave Duoneb, briefly on NRB with pOx improving to 96-98%, then switched to 15L midflow with pOx 98%.
CXR appears with interstitial edema b/l - gave 80 iv Lasix. Pt was in rapid a-fib upto 120s-130s with either freq. PVCs or aberrancy (L bundle morphology). Currently, he is on bipap 12/5 with 10 L O2 with pOx 97-98%. No CP
-spoke with Dr. Jameson Valadez - recommended 0.5 iv Digoxin for better rate control.
-labs reviewed: Lactic acid 2.8 (from 2.4), Cr 1.5 (from 1.6), K 4.6, Mg 2.0
-pt appears more comfortable. Continue to monitor closely
[2024-11-01 07:47] LABS: APTT 52.2 Sec (23.4-35.0)
[2024-11-01] MEDS: SYNTHROID 75 MCG PO (07:55)
--- NOTE | 2024-11-01 08:00 | PTCARENOTE ---
Assumed care of patient. Walking rounds complete with previous RN. Pt assessed while he was lying in bed. Pt alert and oriented x4. Bed alarm in place. SANTOS with equal strength in all extremities. Afib on tele with rates 90s-110s. BP 115/87.
Bilateral radial and DP pulses palpable. No edema noted. POX 95% on Bipap 12/5 10L. Lungs coarse with crackles in the bases. Occasional moist nonproductive cough. RT at bedside, pt placed on 10L midflow, POX 94%, pt tolerating. Mouth care completed.
Abdomen soft, round, nontender. +BS. Pt voiding clear yellow urine in the urinal. Post void residual 263mL. Right radial cath site soft with dressing CDI. Right groin puncture site soft with dressing CDI. PIV x3 intact. Heparin infusing at 1150. See
MAR for medication administration. See worklist for complete nursing assessment. Plan of care reviewed, hospitalist and cardiology updated on patient status and cardiology at bedside to review plan of care with RN and patient.
--- NOTE | 2024-11-01 08:10 | W.PN.INTV ---
Today's Communication / Plan
Recommendations
BiPAP, giving periods of rest as tolerated while maintaining SpO2 >94%
Trend lactate
Follow-up official left heart/right heart cath report
Start Unasyn
Infectious workup
Diet as per [employer]LE FRAMER MACHINE (FEES pending)
Aspiration precautions
Milrinone drip, while monitoring for arrhythmias given VERENICE
Trend UOP
Guarded prognosis; DNR/DNI as of today
Continue CVICU level care
Assessment
-
Assessment: 84-year-old male with a past medical history of aortic stenosis, A-fib on Eliquis, hyperlipidemia and CKD who presented to [facility] after syncopal event. EKG showed A-fib with RVR with concerning EKG changes with inferior and
anterolateral ST depressions with lateral T wave inversions. CXR also showed interstitial pulmonary edema. He was transferred here to [place] for cardiac catheterization. Patient was hypotensive with concern for cardiogenic shock.
[employer]/pulmonary service now consulted for additional management/recommendations.
Chronic medical conditions: Severe , CHF, permanent A-fib on Eliquis, gout, HTN, CKD IIIa, hypothyroidism, GERD, sciatica
Impression:
#Acute HFrEF
#Cardiogenic shock
#Lactic acidosis due to above
#Acute cardiogenic pulmonary edema
#Leukocytosis
#Acute hypoxic respiratory failure
#Syncope
#Severe aortic stenosis
#Elevated troponin likely due to NSTEMI
#A-fib with RVR (on eliquis as outpatient for permanent A-fib)
#VERENICE on CKD
#Former tobacco smoker (20-PY Hx - quit 1995)
#Gout
#Hypothyroidism
#Sciatica
Plan:
- Patient transferred here to [facility] for left heart catheterization which showed multivessel CAD without good PCI targets
- CT surgery evaluation pending for evaluation for CABG -unfortunately cath shows no reasonable bypass targets so doubtful he will be a CABG candidate
- Eliquis on hold
- Continue with heparin drip for now as well as high intensity statin
- As per cardiology, echo performed on 10/30/2024 showed severely decreased LVEF at 25-30% (down from 55%) with severe with low gradient across AV with apico-lateral hypokinesis
- Maintain SpO2 >94% with supplemental oxygen and wean down as tolerated
- Assure all medical records from [facility] are available for all providers to review
- CXR shows interstitial edema to continue with Lasix 40mg IV q6hr
- HR control with goal <110
- PO amiodarone started per cardiology
- Milrinone drip also started today per cardiology; monitor for arrhythmias especially in the setting of his VERENICE
- Given his elevated WBC with possible aspiration pneumonia, recommend to start Unasyn
- Would give at least a 5-7-day total duration of antibiotics assuming he continues to clinically improve and remains afebrile for 48 hours prior to stopping
- CXR today (11/01) predominantly shows interstitial edema with prominent vasculature with patchy opacification in the right midlung region; no prior CXR to compare to
- Blood cultures x2 collected today � will follow-up; check a sputum culture if he can produce a decent sample; check urine antigens for Legionella + strep pneumonia
- Maintain MAP>65
- Continue with milrinone drip
- Continue with Lasix, holding for hypotension
- May need a vasopressor if MAP drops <65
- Lactate elevated at 2.8 this morning � continue trending until <2 mmol/L
- Renally dose all meds; trend UOP and sCr; strict I/O
- Replete electrolytes with K>4, Mg>2
- Continue levothyroxine
- Maintain euglycemia with goal BG 140-180
- Trend H/H and transfuse if needed to keep Hb>7g/dL; keep plt>20k, unless there is concern for bleeding then keep plt>50k
- prn nebulized bronchodilators - not currently bronchospastic
- Once off BiPAP, encourage incentive spirometer use as tolerated
- [employer] MACHINE evaluated him and rec'd cautious continuation of pur�ed with thin liquids with meds crushed in pur�ed; FEES is pending
- DVT ppx - heparin gtt
Code status: Full code --> changed to DNR/DNI today (11/01/2024)
Guarded prognosis
[employer] services will continue to follow along while patient remains in the CVICU.
Critical care statement: A total of 41 minutes of critical care time was provided for this patient today. This includes management of unstable vital signs, evaluation of the patient at bedside, reviewing the patient's pertinent medical records
including radiographs, microbiology, laboratory evaluations, and discussion with primary team, consultants, pharmacy, nutrition, physical therapy, case management, charge nurse, critical care nursing, and respiratory therapy.
Data:
CXR 11/01/2024:
Moderate CHF. Suspect superimposed right upper lobe pneumonia.
Cannot rule out component of underlying chronic interstitial lung disease.
Subjective Dataa
Subjective Data
Date of Service:
Date of Service: November 01, 2024
Chief Complaint: [employer] Follow Up
Subjective:
Patient was seen and evaluated today at bedside. Placed onto BiPAP overnight due to respiratory distress. This morning he was placed onto milrinone at 0.3 mcg/kg/minute. When I saw the patient he was on BiPAP 12/5cmH2O bled with 10 L/min O2. He
is currently saturating 92% with heart rate 121 and BP 95/65. VTe on BiPAP was 760 mL and he is breathing at 20 breaths/min. He says that the BiPAP mask is helping him breathe better. Currently denies any chest pain, cough, fevers or chills.
Review of Systems
General: Other (Negative unless mentioned above)
Objective Data
Data Reviewed
Vital Signs / I&O / Oxygen:
Vital Signs
Temp Pulse Resp BP Pulse Ox
98.4 F 102 28 95/65 94
11/01/24 12:30 11/01/24 12:30 11/01/24 12:30 11/01/24 12:30 11/01/24 12:30
Intake and Output
10/31/24 11/01/24 11/02/24
06:59 06:59 06:59
Intake Total 500 / 500 559.3 / 559.3
Output Total 1900 / 1900 750 / 750
Balance -1400 / -1400 -190.7 / -190.7
SaO2 94
Nasal Cannula flow liters per 6
minute
Physical Exam
General: Respiratory Distress (negative), Comfortable, Chills (negative), Sweats (negative) and Other (Elderly male in no acute distress on BiPAP mask)
HEENT: Normocephalic and Anicteric
Cardiovascular: Irregular Rhythm, Peripheral Edema (negative) and Other (Tachycardic)
Respiratory: Wheeze (negative), Rhonchi (negative), Non-Labored Respirations and Other (Coarse breath sounds heard bilaterally)
GI: Soft, Non Distended, Non Tender and Normal Bowel Sounds
Neurology: Awake, Alert and Tremors (negative)
Skin: Warm, Dry, Cyanosis (negative) and Jaundice (negative)
Labs/Micro/Reports
Lab Data
11/01/24 04:05
Laboratory Results
10/31/24 11/01/24 11/01/24
14:51 00:13 07:09
APTT > 200 H* 60.8 H 52.2 H
Microbiology
11/01/24 09:15 Nasal Swab Influenza Types A & B (NICOLE) - Final
Negative for Influenza A & B, NAAT
Negative results must be combined with clinical observations
and patient history.
Nucleic Acid Amplification test (NAAT)performed on the
[employer] platform.
--- NOTE | 2024-11-01 08:18 | W.PN.CARDCBS ---
Addendum entered and electronically signed by Sweta Stanford DO 11/01/24 14:56:
I saw and examined the patient.
The [employer]'s note was reviewed and I agree with the note.
Comment: Patient was seen and examined. Chart/telemetry and cath films/right heart cath reviewed with interventional cardiology. Discussed overnight events with nursing. Patient denies chest pain or pressure. Continues to have shortness of
breath but states is better than this morning. Required BiPAP 05/24 with 10 L overnight now on mid flow nasal cannula; also received a dose of IV digoxin overnight for rapid atrial fibrillation
General: Awake alert and oriented but frail with conversational dyspnea on mid flow nasal cannula O2 at 10 L
Neck: Positive JVP
Heart: Irregularly irregular. Positive S1-S2. 3/6 SM.
Lungs: Bronchovesicular breath sounds with rhonchi bilaterally and bibasilar crackles.
Abd: Nontender, nondistended. Positive bowel sounds
Ext: No edema, cool distal extremities. Radial cath site intact
Neuro: nonfocal
: García catheter placed by nursing with clear urine
Plan:
Cardiogenic shock with hypoxic respiratory failure and acute heart failure with reduced ejection fraction and low-flow/low gradient severe aortic stenosis and non-STEMI with increasing leukocytosis and suspected aspiration pneumonia
-Echo 10/31/24: [facility] study, EF 25-30%, grade 3 diastolic dysfunction, sev peak/mean 48.4/30.9 mmHg and BAUDILIO 0.28 cm sq with new reduction in ejection fraction when compared to study done last year.
-Left/right heart catheterization reviewed with Dr. Roldan Cheek. Diffuse three-vessel disease, report pending with no clear ACS culprit or PCI options. Dr. Cheek discussed case with Dr. Wero Yang, CT surgery; not a candidate for CABG.
-Right heart catheterization with RA pressure 14, wedge 32, PA pressure 55/36 with a mean of 43, PA sat 38.6%, AO sat 85%. Cardiac output/cardiac index 2.77/1.46. PVR 3.25, SVR 1648.
-Chest x-ray with moderate heart failure possible right upper lobe pneumonia
-Multidisciplinary discussion regarding care
-Will continue IV Lasix initially 40 mg IV every 6 hours however may intensify pending response and stability of hemodynamics
-Will start IV milrinone drip
-Continue IV heparin
-Aspirin 81 mg daily
-Outpatient pravastatin changed to atorvastatin for LDL on admission 84 g/dL. Goal LDL less than 70 mg/dL.
-Repeat limited bedside 2D echocardiogram
Concern for infection/possible aspiration pneumonia with increasing lactic acid and WBC count, currently 20,000
-Empiric antibiotics discussed with band sawyer
-Check procalcitonin level. Urine culture pending. Check blood cultures x2 as well.
-Check COVID and influenza swabs
-Patient also reports over a year of dysphagia with both liquids and solids. Speech evaluation ordered
-Aspiration precaution
History of persistent atrial fibrillation currently with rapid rates
-Outpatient Eliquis discontinued at time of admission to [facility] currently on IV heparin
-Will add amiodarone 200 mg TID
- Check TSH
History of severe aortic stenosis with echocardiogram at [facility] suggesting low gradient/low-flow severe aortic stenosis
-Repeat limited 2D echocardiogram
-Avoid hypotension
-Discussion regarding options for aortic valve such as TAVR pending clinical improvement
CODE STATUS discussed with patient at bedside and he confirmed he wishes DNR/DNI
Original Note:
Today's Communication / Plan
-
Start amiodarone 200 mg TID
Start Lasix 40 mg IV q 6 hours
Check blood cultures and repeat lactic acid. Check procal
Impression / Plan
-
PCP: Laura Cm MD
CDY: Jose Luis Mehta MD
IMPRESSION:
Transferred from [facility] to [facility] 10/31/24
Admitted with [facility] with weakness, SOB and rapid Afib 10/30/24
Lactic acidosis
Possible cardiogenic shock
Acute on Chronic HFrEF
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
Acute cardiogenic pulmonary edema
Acute hypoxic respiratory failure
NSTEMI
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
Syncope
Severe peak/mean 48/31 and BAUDILIO 0.28 cm sq by echo at [facility] 10/31/24
Persistent Afib
Afib with RVR on admission to [facility]
VERENICE on CKD3a
HTN
HLD
Hypothyroid
GERD
Thrombophilia
Gout
R/LHC 10/31/24: multivessel CAD details unknown, PCWP 32, PA 55/36, CO/CI 2.77/1.46, SVR 1648
Echo 10/19/23: [facility] study, EF 50-55%, mod LVH, sev
Echo 10/31/24: [facility] study, EF 25-30%, grade 3 diastolic dysfunction, sev peak/mean 48.4/30.9 mmHg and BAUDILIO 0.28 cm sq
Echo 11/01/24: f/u study pending
PLAN:
-Patient presented to [facility] 10/30/24 with weakness and was found to be in rapid Afib and hypoxic respiratory failure with acute HF. Echo as noted above with new CM and sev . Troponin was elevated. Patient brought to [facility] for cardiac cath and then
admitted to CVICU afterwards with possible cardiogenic shock and acute HF.
-Overnight events noted. Stable at 94% on 10 L currently
-Patient given Lasix 80 mg IV at 0453 on 11/01/24. Will change Lasix order to 40 mg IV q 6 hours with next dose at 1000. Patient was not taking a loop diuretic prior to admission.
-García catheter to be placed for I&Os in critical illness, ordered by me.
-CI 1.46. Lactic acid was 2.4 on 10/31/24 at 1754 and repeated at 2.8 on 11/01/24 at 0405. Check another lactic acid level now, ordered by me. Consideration for addition of milrinone for inotropic support.
-EF 25-30% by echo at [facility] 10/31/24. Repeat echo now, ordered by me.
-Hold off on addition of BB now due to possible cardiogenic shock.
-SVR 1648. Patient was taking lisinopril 10 mg daily as an outpatient. Will give a of captopril 6.25 mg PO x1 now for afterload reduction, ordered by me. Follow BP. SVR was 1648.
-Patient with known CKD 3b. Nephrology following. Cre improved to 1.5 on 11/01/24.
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 No revascularization plans presently.
-Patient reports persistent Afib and was noted to be rapid on admission to [facility] 10/30/24. HRs remains elevated and will add amiodarone 200 mg TID starting now for adjunct rate control.
-Outpatient dose of Eliquis 5 mg BID (age 84, Cre 1.5, wt 78 kg) is on hold. Heparin gtt ordered and renewed by hospitalist attending 11/01/24
- gradients 48/31 with BAUDILIO 0.28 (?) by echo at [facility] 10/31/24. Recheck echo now and also assess MR.
-Check procalcitonin level. Urine culture pending. Check blood cultures x2 as well. TT to Jitney Driver about possible empiric antibiotics
-Check COVID and influenza swabs
-Nursing reports swallowing issues, ST eval and treat ordered by me
-Patient says he is a DNR and paperwork on chart, will change order.
HPI: 84 y/o, severe presented with acute on chronic heart failure with hypoxic respiratory failure and pulmonary edema as well as rapid AFib. Treated with IV diuresis as well as BiPap support, IV diltiazem and heparin.
Workup revealed elevated HS troponin 4125, CK/MB 1438/162 peaks. Echo with new decreased systolic function with EF 25-30%, worsening , and apical lateral HK. Transferred to for R/LHC today. On arrival he was dyspneic at rest on 4LNC, SBP 90s.
Progress Note - Modeling Instructor
Subjective
Date of Service: November 01, 2024
Denies chest pain
Objective
Labs:
11/01/24 04:05
11/01/24 04:05
Labs
Hgb 14.3 g/dL (13.0-18.0) 11/01/24 04:05
Hct 42.0 % (39.0-52.0) 11/01/24 04:05
Plt Count 214 10^3/uL (130-400) 11/01/24 04:05
APTT 52.2 Sec (23.4-35.0) H 11/01/24 07:09
Sodium 140 mmol/L (135-145) 11/01/24 04:05
Potassium 4.6 mmol/L (3.5-5.1) 11/01/24 04:05
BUN 41 mg/dl (9-20) H 11/01/24 04:05
Creatinine 1.5 mg/dL (0.7-1.3) H 11/01/24 04:05
Glucose 131 mg/dl (70-99) H 11/01/24 04:05
Vital Signs and I&O:
Vital Signs
Temp Pulse Resp BP Pulse Ox
98.0 F 114 20 115/87 95
11/01/24 08:00 11/01/24 08:00 11/01/24 08:00 11/01/24 08:00 11/01/24 08:06
Vital Signs
Temp Pulse Resp BP Pulse Ox
98.0 F 114 20 115/87 95
11/01/24 08:00 11/01/24 08:00 11/01/24 08:00 11/01/24 08:00 11/01/24 08:06
Intake & Output
10/30/24 10/31/24 11/01/24 11/02/24
06:59 06:59 06:59 06:59
Intake Total 500 / 500 251.5 / 251.5
Output Total 1900 / 1900 200 / 200
Balance -1400 / -1400 51.5 / 51.5
Physical Exam
Physical Exam
GEN: NAD. AAOx3
HEENT: EOMI, MMM
LUNGS: 10 L NC. No audible wheeze
CV: Afib with RVR on tele. Irreg irreg, no appreciable murmur.
ABD: ND
EXT: No edema B/L
NEURO: Gross non-focal
SKIN: No rash
[2024-11-01 09:25] LABS: Glucose - Point of Care 132 mg/dl (70-99)
[2024-11-01] MEDS: NOVOLOG FLEXPEN-LOW RESISTANCE SC ×2 (09:33→18:15)
--- NOTE | 2024-11-01 09:46 | W.PN.HOSP.TC ---
Today's Communication/Plan
-
see A/P
Assessment / Plan
Assessment / Plan
HPI: 84 y/o male past medical history of Permanent atrial fibrillation, hypertension, hyperlipidemia, hypothyroidism; who was transferred from [facility] for urgent cardiac catheterization. Patient initially presented to [facility]
the evening prior for syncope. He was also found to be hypoxic with A-Fib in RVR. Overnight his troponin tended up significantly and he was transferred to [facility] for cardiac catheterization. Patient seen post cardiac cath in the CVICU.
A/P:
# Acute Hypoxic Respiratory Failure secondary to Acute Heart Failure
# Acute Heart Failure, suspect preserved EF
# Known severe aortic stenosis
Weaned BIPAP to 10L midflow, continue supplemental oxygen and wean as tolerated, pt is not on home O2
Continue Lasix adjusted to 40 mg IV Q6H with holding parameter; Monitor Is&Os and Daily Weights
Card on board to direct acute CHF
Card to direct TAVR eval for severe
# Permanent Atrial Fibrillation
RVR noted
Cont heparin drip for anticoagulation (CARBONIZER on Eliquis)
s/p digoxin per card
coreg x1 dose
Amiodarone per card
Card on board
# NSTEMI
Patient underwent cardiac cath 10/31 with evidence of multivessel disease.
CT surgery consult
Continue heparin drip per 1st grade teacher
Management as per cardiology
# VERENICE on CKD IIIA
creat 1.6 -> 1.5; baseline ~1.2
Nephrology on board
Cont to monitor creatinine closely following contrast for cardiac cath and diuretics for heart failure
# Leucocytosis, suspect reactive
CXR noted Moderate CHF. Suspect superimposed right upper lobe pneumonia.
COVID/Fu negative
Procal sent, follow up result
# Elevated Glucose
HgbA1c 6.0%
Continue diabetic diet
Monitor sugars and continue coverage insulin
# Essential Hypertension
BP running on the low side
Hold all meds for now
# Hyperlipidemia
Changed pravastatin to Lipitor
# Hypothyroidism
TSH 2.76
Continue levothyroxine
# Isolated elevation of AST
cont to monitor
DVT proph: Heparin drip
Code Status: Full Code
DW RN
DW Card team
updated on the phone
total time 51 min
Anticipated Discharge: > 48 hours
Subjective/Interval History
-
Date of Service: November 01, 2024
Objective Data
-
Labs:
Laboratory Results
11/01/24 11/01/24 11/01/24
00:13 04:05 07:09
WBC 20.1 H
Hgb 14.3
Hct 42.0
Plt Count 214
APTT 60.8 H 52.2 H
Sodium 140
Potassium 4.6
Chloride 108 H
Carbon Dioxide 19 L
BUN 41 H
Creatinine 1.5 H
Glucose 131 H
Calcium 9.6
Total Bilirubin 1.0
AST 156 H
ALT 49
Alkaline Phosphatase 72
11/01/24
14:10
WBC
Hgb
Hct
Plt Count
APTT Pending
Sodium
Potassium
Chloride
Carbon Dioxide
BUN
Creatinine
Glucose
Calcium
Total Bilirubin
AST
ALT
Alkaline Phosphatase
Vital Signs:
Vital Signs
Temp Pulse Resp BP Pulse Ox
36.7 C 114 20 115/87 95
11/01/24 08:00 11/01/24 08:00 11/01/24 08:00 11/01/24 08:00 11/01/24 08:06
I&O
10/31/24 11/01/24 11/02/24
06:59 06:59 06:59
Intake Total 500 / 500 251.5 / 251.5
Output Total 1900 / 1900 200 / 200
Balance -1400 / -1400 51.5 / 51.5
Review of Systems
-
All other systems: Reviewed and negative
Constitutional: Reports No Symptoms
Physical Exam
-
General: Well Developed, Well Nourished, Comfortable, Respiratory Distress, Conversant and Appears Chronically Ill
HEENT: Normocephalic, Atraumatic, Nose Appears Normal, Ears Appear Normal and Oxygen (10L mid flow )
Respiratory: Clear to Auscultation and Non Labored Respirations; Negative Accessory Resp Muscle Use
Cardiac: S1/S2, Irregular Rhythm and Tachycardic
GI: Soft, Nontender, Nondistended and Normal Bowel Sounds
Skin: Warm and Dry
Neuro: Awake, Alert, Oriented and AO x 3
Psych: Calm and Intact Judgement/Insight
Data Reviewed
-
Labs: Labs Reviewed by me
[2024-11-01 09:56] LABS: COVID-19 Antigen Negative (Negative)
[2024-11-01 10:31] LABS: Procalcitonin 1.66 ng/ml (0.0-0.25)
[2024-11-01 10:32] LABS: Lactic Acid 2.5 mmol/L (0.7-2.0)
--- NOTE | 2024-11-01 10:37 | PTOTSP ---
Dysphagia Eval
Patient presents with signs concerning for unspecified pharyngeal and/or esophageal dysphagia and signs of aspiration with thin liquids via straw > other consistencies. Patient with acute on chronic dysphagia risk factors (i.e., respiratory failure
with heart failure, CXR with right PNA; GERD).
Recommend:
1. Cautious continuation of L4 puree, thin liquids
2. Meds crushed in puree
3. Strategies: upright to 90 degrees, small single sips/bites, slow rate, reflux precautions, oral care 3x daily
4. Instrumental swallowing assessment to objectively assess swallowing function. Given patient currently on 10 LPM, recommend FEES.
[2024-11-01] MEDS: PACERONE 200 MG PO (10:39)
[2024-11-01] MEDS: LASIX 40 MG IV ×3 (10:40→22:37)
[2024-11-01] MEDS: PRIMACOR 20 MG 100 IV ×2 (11:01→23:02)
--- NOTE | 2024-11-01 11:38 | CM ---
Reviewed chart. Met with Mr. Dunn to review discharge plans. He states he is doing okay. Prior to admission he resides with his spouse in a one story home with one step to enter. Prior to admission he ambulates with a rolling walker and
independent with adls. He has a walker and single point cane at home. He has a prescription plan and uses [facility]. He has never needed [facility] but his spouse has had [facility]. Will need to see his current functional level to
see if he will have any skilled care needs. Medical work-up in progress. The discharge plan is to return home [place] with [facility] if indicated when medically stable.
[2024-11-01] MEDS: UNASYN IV ×2 (12:17→18:07)
[2024-11-01 12:23] LABS: Glucose - Point of Care 158 mg/dl (70-99)
--- NOTE | 2024-11-01 12:30 | PTCARENOTE ---
Pt reassessed. Lying in bed. Denies pain, denies nausea but does not want to eat at this time. Afib with PVCs with rates in the 100s. BP 95/65. POX 94% on 10L Midflow. Increased work of breathing, RT at bedside to place pt on bipap 12/5 10L.
Frequent nonproductive moist cough. García draining adequate amounts of clear yellow urine. Cath sites CDI. PIVs unchanged. Milrinone infusing 0.3mcg/kg/min, Heparin infusing at 1350units/hour. Pt resting in bed, family at bedside.
--- NOTE | 2024-11-01 12:49 | W.PN.NEPH.PH ---
Today's Communication / Plan
-
Diuresis
Assessment/Plan
-
Assessment
Non-ST elevation NM
Acute kidney injury
CKD 3A baseline 1.2
Prediabetes
Atrial fibrillation
Severe aortic stenosis
Hypertension now hypotension
Plan
Reportedly he is not a surgical candidate
He may not have any high risk PCI options either. This may also then remove any options of TAVR are as well.
For milrinone
Continue intravenous Lasix for diuresis
Follow BMP
Follow lactate
Critical care time spent 31 minutes
-
-
Date of Service: November 01, 2024
CC / HPI / ROS
-
Chief Complaint:
VERENICE
History of Present Illness:
VERENICE/creatinine slightly better at 1.5
Metabolic acidosis persists 15
Lactate elevated 2.8
Blood pressure low but stable
Severe shortness of breath overnight
Diuresing with IV Lasix
Review of Systems:
No current chest pain or shortness of breath. Wearing supplemental oxygen
Labs
-
Labs:
WBC 20.1 10^3/uL (4.8-10.8) H 11/01/24 04:05
RBC 4.88 10^6/uL (4.70-6.10) 11/01/24 04:05
Hgb 14.3 g/dL (13.0-18.0) 11/01/24 04:05
Hct 42.0 % (39.0-52.0) 11/01/24 04:05
Plt Count 214 10^3/uL (130-400) 11/01/24 04:05
eGFR 45.91 11/01/24 04:05
Physical Exam
-
Vital Signs:
Vital Signs
Temp Pulse Resp BP Pulse Ox
98.4 F 102 28 95/65 94
11/01/24 12:30 11/01/24 12:30 11/01/24 12:30 11/01/24 12:30 11/01/24 12:30
Cardiovascular:: Regular rate and rhythm
Respiratory:: Bilateral: Coarse
Lung Excursion:: Normal
Abdomen:: Nontender and Soft
Bowel Sounds:: Normal
Extremity Edema:: +1: Bilateral:
[2024-11-01] MEDS: NOVOLOG FLEXPEN-LOW RESISTANCE 1 UNITS SC (14:19)
[2024-11-01 14:47] LABS: APTT 71.6 Sec (23.4-35.0)
[2024-11-01 14:49] LABS: Lactic Acid 2.3 mmol/L (0.7-2.0)
[2024-11-01] MEDS: HEPARIN 25000 UNITS/250 ML IV (14:57)
[2024-11-01 15:12] LABS: ALT (SGPT) 46 U/L (0-50); AST (SGOT) 112 U/L (17-59); Albumin 3.7 g/dl (3.5-5.0); Alkaline Phosphatase 71 U/L (38-126); Blood Urea Nitrogen 42 mg/dl (9-20); Calcium 9.1 mg/dl (8.4-10.2); Carbon Dioxide 22 mmol/L (22-30); Chloride 106 mmol/L (98-107); Estimated Creatinine Clearance 37 ml/min; Glucose 143 mg/dl (70-99); Magnesium 1.9 mg/dl (1.6-2.3); Phosphorus 3.7 mg/dl (2.5-4.5); Potassium 4.6 mmol/L (3.5-5.1); Sodium 136 mmol/L (135-145); Total Bilirubin 1.3 mg/dl (0.2-1.3); Total Protein 6.9 g/dl (6.3-8.2); eGFR 49.87
[2024-11-01] MEDS: LIPITOR PO (16:08)
[2024-11-01] MEDS: PACERONE PO (16:08)
[2024-11-01] MEDS: PROTONIX IV 40 MG IV (16:15)
[2024-11-01] MEDS: NSS (PRESERVATIVE FREE) 10 ML IV (16:16)
--- NOTE | 2024-11-01 16:30 | PTCARENOTE ---
Pt reassessed. Requesting Bipap to be removed for a little better, RT notified, pt placed on 10L Midflow. Afib with rates in the 100s-110s. BP 99/63. POX 95%. García draining adequate amounts of kip urine. Milrinone and heparin gtts infusing. New
PIV placed by VAT team for amio gtt. Pt NPO as per speech therapy. Mouth care provided.
[2024-11-01] MEDS: CORDARONE 518 MG IV (16:37)
--- NOTE | 2024-11-01 16:56 | W.PN.UPDATE ---
Update Note
Progress Note Update
Dr. Cheek discussed case with . Patient is not a candidate for CABG/AVR due to his surgical risks. Cardiology aware and will continue with medical management. CT surgery will sign off at this time.
--- NOTE | 2024-11-01 16:58 | ITS.CL.CATH ---
Industry Analyst - Catheterization
Cardiac Catheterization
Procedure Report:
RIGHT AND LEFT HEART CATHETERIZATION
Date of Procedure: 11/01/2024
Primary Electrical Mechanic: Dr. Jose Luis Mehta
Procedures performed:
1: Coronary angiography
2: Left ventricular hemodynamic assessment
3: Right heart catheterization
INDICATION: The patient is a 84-year-old man with a past medical history significant for permanent atrial fibrillation and known moderate to severe aortic stenosis who presented with respiratory failure to [facility]. Initial EKG showed
ST-T wave changes concerning for ischemia and he ruled in for a non-ST elevation MT. The patient at no time had chest pain but did report some 'congestion' a couple days ago. He runs a creatinine of 1.2 but was 1.7 this morning after IV diuresis.
Echo at [place] showed new severe LV systolic dysfunction with an ejection fraction of 25 to 30% with an aortic valve gradient of approximately 30 mmHg.
ACCESS: The patient was prepped and draped in usual sterile fashion. A 6 [place] sheath was placed in the right radial artery using the Seldinger over the wire technique. A 6 [place] sheath was then placed in the right common femoral vein using the
same technique.
HEMODYNAMIC FINDINGS (mmHg):
RA(a,v,m): *, 16, 14
RV(s/d,EDP): 50/12, 15
PA(s/d/m): 52/36, 43
PCWP(a,v,m): *, 44, 33
LV(s/d,EDP): 120/16, 28
Ao(s/d,m): 83/60, 69
Aortic valve pullback gradient: 32 mmHg. This was difficult to accurately assess given [id number] variability in A-fib with single endhole catheter pullback.
Oxygen Saturations (mg/dl):
PA: 39% on 4 L of oxygen by nasal cannula
LV: 86% on 4 L of oxygen by nasal cannula
Cardiac Output/Index (l/min / l/min/m2):
Estimated Daren Method: 2.8 / 1.5
VALVE HEMODYNAMICS:
No significant aortic or mitral valve stenosis.
ANGIOGRAPHIC FINDINGS:
Single-plane Left Ventriculography in ESCOBEDO Projection: Not done.
Coronary Angiography:
Dominance: Right
Left Main: There is a smooth tapered distal 30-40%.
Left Anterior Descending: The left anterior descending artery is a medium caliber vessel that has diffuse calcific disease particularly in the midportion after the takeoff of the second major diagonal branch. Despite that there appears to be distal
EDWIN-3 flow with no clear focal high-grade disease. That said angiographic assessment is difficult particularly at that takeoff of the second diagonal branch where the vessel is small and heavily calcified. The 2 diagonal branches are also small
caliber and have severe calcific diffuse proximal disease but with EDWIN-3 distal flow. They appear too small for surgical bypass.
Left Circumflex: The left circumflex is a medium caliber vessel that gives rise to a medium caliber first obtuse marginal branch and terminates in a small distal left-sided posterior left ventricular branch. The mid LAD is calcified with a smooth
50% stenosis. The OM1 has moderate diffuse disease with normal distal flow. The distal vessel is patent with normal flow.
Right Coronary: The right coronary artery is a small caliber dominant vessel that has diffuse severe 50 to 80% disease throughout the proximal and mid RCA. The posterior descending artery is a medium caliber vessel that does appear to be a possible
surgical target.
Fluoroscopy Time (min): 6.0
Radiation Dose (mGy): 495
DAP (Gy.cm2): 35
Closure device: None. A TR band was applied for hemostasis at the right wrist. The femoral vein groin sheath will be pulled with manual pressure for hemostasis.
Complications: None.
ASSESSMENT:
1: Severe diffuse small vessel disease with what appears to be obstructive disease in the LAD, diagonal branches, and RCA. Given the diffuse pattern of this disease I do not feel that there are any reasonable PCI options. There certainly does not
seem to be evidence for acute coronary syndrome.
2: Cardiogenic shock with very low cardiac output/index. Patient was given IV Lasix 80 mg on the table and appears to be diuresing. He has not required pressors and does appear to be oxygenating better on nasal cannula.
3: Severe aortic stenosis.
CONCLUSIONS and RECOMMENDATIONS:
1: Admit to ICU for ongoing medical therapy and monitoring.
2: Will continue IV diuretics. Consider inotropes. Hopefully with diuresis he will continue to improve.
3: Explained at length to his daughter that he is critically ill with few options. I will have CT surgery see him for a formal consult but doubt he is a surgical candidate. I think the best hope would be to medically optimize him to the point
where he could get a TAVR CT and ultimately get TAVR.
4: Case discussed at length with the CTPA as well as CT surgery Dr. Wero Yang.
Santana Cheek M.D.
[2024-11-01 18:07] LABS: Glucose - Point of Care 135 mg/dl (70-99)
[2024-11-01 19:26] LABS: TSH Reflex To Free T4 3.63 uIU/ml (0.47-4.68)
--- NOTE | 2024-11-01 20:00 | PTCARENOTE ---
assumed care of patient @ 1900. recieved pt laying in bed, AOx3. Forgetful at times, bed alarm activated. no acute c/o. Afib on tele HR 100s with PVCs. BP soft in the 90s but stable. 10L midflow , satting 95%. switching between midflow and bipap as
needed for comfort and sats. currently comfortable on midflow. Dyspnea at rest with RR in the 20s. Shallow breaths. Crackles present in the posterior bases, otherwise clear. Belly soft, hypoactive. NPO from speech swallow earlier. layton present
draining clear yellow urine. PIV x4 intact. R radial and R groin access sites CDI, soft no hematoma. on amio multistep protocol, heparin at 1450, milronone at 0.3. pt resting comfortably with call santiago within reach .
--- NOTE | 2024-11-01 20:53 | RESPNOTE ---
discussed HS bipap with patient. patient wore bipap from about 11:00 to 16:00 today. requesting not to be placed on bipap at this time. maintaining 93% on 10L midflow. will monitor overnight with potential for bipap later tonight. RN updated.
[2024-11-01 21:21] LABS: APTT 88.7 Sec (23.4-35.0)
[2024-11-02] VITALS (30 sets, daily range): BP systolic 83–119; BP diastolic 53–95; BMI 26.2
[2024-11-02] MEDS: UNASYN IV ×5 (00:36→23:54)
--- NOTE | 2024-11-02 00:51 | PTCARENOTE ---
patient resting comfortably, no change in assessment .
[2024-11-02 01:17] LABS: Glucose - Point of Care 130 mg/dl (70-99)
[2024-11-02 03:26] LABS: % Basophils 0.2 % (0-2); % Eosinophils 0.6 % (0-6); % Immature Granulocytes 0.4 % (0-0.5); % Lymphocytes 9.1 % (20.5-51.1); % Monocytes 7.6 % (1.7-9.3); % Neutrophils 82.1 % (42.2-75.2); Absolute Eosinophils 0.1 10^3/uL (0-0.7); Absolute Immature Granulocytes 0.1 10^3/uL (0-0.05); Absolute Lymphocytes 1.2 10^3/uL (1.2-3.4); Absolute Neutrophils 10.9 10^3/uL (1.4-6.5); Hematocrit 37.7 % (39.0-52.0); Hemoglobin 12.8 g/dL (13.0-18.0); Mean Corpuscular Hgb 29.1 pg (27.0-31.0); Mean Corpuscular Volume 85.7 fL (80.0-94.0); Mean Platelet Volume 11.7 fL (7.4-10.4); Nucleated Red Blood Cells % 0 % (-); Platelet Count 197 10^3/uL (130-400); Red Cell Dist. Width 14.3 % (11.5-14.5); White Blood Cell Count 13.3 10^3/uL (4.8-10.8)
[2024-11-02 03:44] LABS: APTT 76.2 Sec (23.4-35.0)
[2024-11-02 03:50] LABS: Lactic Acid 1.3 mmol/L (0.7-2.0)
[2024-11-02 04:15] LABS: ALT (SGPT) 41 U/L (0-50); AST (SGOT) 79 U/L (17-59); Albumin 3.7 g/dl (3.5-5.0); Alkaline Phosphatase 73 U/L (38-126); Blood Urea Nitrogen 42 mg/dl (9-20); Calcium 8.9 mg/dl (8.4-10.2); Carbon Dioxide 22 mmol/L (22-30); Chloride 107 mmol/L (98-107); Estimated Creatinine Clearance 37 ml/min; Glucose 137 mg/dl (70-99); Magnesium 1.9 mg/dl (1.6-2.3); Potassium 3.9 mmol/L (3.5-5.1); Sodium 138 mmol/L (135-145); Total Bilirubin 1.8 mg/dl (0.2-1.3); Total Protein 6.3 g/dl (6.3-8.2); eGFR 49.87
[2024-11-02] MEDS: LASIX 40 MG IV ×4 (05:26→21:56)
[2024-11-02] MEDS: KCL 160 MEQ IV (05:35)
[2024-11-02 05:46] LABS: Glucose - Point of Care 141 mg/dl (70-99)
[2024-11-02] MEDS: NOVOLOG FLEXPEN-LOW RESISTANCE SC ×5 (06:00→23:48)
[2024-11-02] MEDS: SYNTHROID PO (06:09)
--- NOTE | 2024-11-02 08:29 | W.PN.NEPH.PH ---
Today's Communication / Plan
-
Chief Complaint:
Acute kidney injury
History of Present Illness:
Creatinine down to 1.4
Hemodynamically labile on milrinone support
Remains on Lasix 40 mg IV every 6 hours for decompensated congestive heart
Review of Systems:
Grossly nonoliguric
weight down
no reported chest pain this am
Assessment/Plan
-
Assessment
Non-ST elevation NM
Acute kidney injury
CKD 3A baseline 1.2
Prediabetes
Atrial fibrillation
Severe aortic stenosis
Hypertension now hypotension
Plan
VERENICE in setting of cardio-renal syndrome
creatnine down to 1.4 and grossly non oliguric >2 liters
Reportedly he is not a surgical candidate
He may not have any high risk PCI options either. This may also then remove any options of TAVR are as well.
For milrinone
Continue intravenous Lasix for diuresis
Follow BMP
Follow lactate
Critical care time spent 31 minutes
Total Time Spent with Patient (in minutes): 31
-
-
Date of Service: November 02, 2024
CC / HPI / ROS
-
Chief Complaint:
VERENICE
History of Present Illness:
VERENICE/creatinine slightly better at 1.4
Metabolic acidosis persists 15
Lactate elevated 2.8
Blood pressure low but stable
Severe shortness of breath overnight
Diuresing with IV Lasix
Review of Systems:
No current chest pain or shortness of breath. Wearing supplemental oxygen
Labs
-
Labs:
WBC 13.3 10^3/uL (4.8-10.8) H 11/02/24 03:04
RBC 4.40 10^6/uL (4.70-6.10) L 11/02/24 03:04
Hgb 12.8 g/dL (13.0-18.0) L 11/02/24 03:04
Hct 37.7 % (39.0-52.0) L 11/02/24 03:04
Plt Count 197 10^3/uL (130-400) 11/02/24 03:04
Sodium 138 mmol/L (135-145) 11/02/24 03:04
Potassium 3.9 mmol/L (3.5-5.1) 11/02/24 03:04
Chloride 107 mmol/L (98-107) 11/02/24 03:04
Carbon Dioxide 22 mmol/L (22-30) 11/02/24 03:04
BUN 42 mg/dl (9-20) H 11/02/24 03:04
Creatinine 1.4 mg/dL (0.7-1.3) H 11/02/24 03:04
eGFR 49.87 11/02/24 03:04
Glucose 137 mg/dl (70-99) H 11/02/24 03:04
Calcium 8.9 mg/dl (8.4-10.2) 11/02/24 03:04
Phosphorus 3.7 mg/dl (2.5-4.5) 11/01/24 14:23
Albumin 3.7 g/dl (3.5-5.0) 11/02/24 03:04
Physical Exam
-
Vital Signs:
Vital Signs
Temp Pulse Resp BP Pulse Ox
97.4 F 119 25 103/79 96
11/02/24 04:00 11/02/24 06:30 11/02/24 06:30 11/02/24 06:00 11/02/24 08:14
Cardiovascular:: Regular rate and rhythm
Respiratory:: Bilateral: Coarse
Lung Excursion:: Normal
Abdomen:: Nontender and Soft
Bowel Sounds:: Normal
Extremity Edema:: None: Bilateral:
García Catheter: Yes
--- NOTE | 2024-11-02 08:30 | W.PN.INTV ---
Today's Communication / Plan
Recommendations
Continue high flow nasal cannula while maintaining SpO2 >94%
Use BiPAP as needed for increased work of breathing
Diruese and maintain net negative fluid balance as BP tolerates
Defer TAVR candidacy to cardiology
Continue Unasyn
Follow up Infectious workup
NPO per [employer] - insert DHT
Aspiration precautions
Milrinone drip while monitoring for arrhythmias given VERENICE
Trend UOP
Guarded prognosis; DNR/DNI as of 11/01
Continue CVICU level care
Assessment
-
Assessment: 84-year-old male with a past medical history of aortic stenosis, A-fib on Eliquis, hyperlipidemia and CKD who presented to [facility] after syncopal event. EKG showed A-fib with RVR with concerning EKG changes with inferior and
anterolateral ST depressions with lateral T wave inversions. CXR also showed interstitial pulmonary edema. He was transferred here to [facility] for cardiac catheterization. Patient was hypotensive with concern for cardiogenic shock.
Adjunct Professor Of Law/pulmonary service now consulted for additional management/recommendations.
Chronic medical conditions: Severe , CHF, permanent A-fib on Eliquis, gout, HTN, CKD IIIa, hypothyroidism, GERD, sciatica
Impression:
#Acute HFrEF
#Cardiogenic shock on milrinone gtt
#Lactic acidosis due to above
#Acute cardiogenic pulmonary edema
#Leukocytosis
#Acute hypoxic respiratory failure
#Suspected aspiration pneumonia
#Syncope
#Severe aortic stenosis with aortic valve pullback gradient: 13 mmHg via recent [facility]
#Elevated troponin likely due to NSTEMI
#Severe diffuse CAD involving LAD, diagonal branches + RCA
#A-fib with RVR (on eliquis as outpatient for permanent A-fib)
#VERENICE on CKD
#Former tobacco smoker (20-PY Hx - quit 1995)
#Gout
#Hypothyroidism
#Sciatica
Plan:
- Patient transferred here to [facility] for left heart catheterization which showed multivessel CAD without good PCI targets
- Patient was evaluated by CT surgery, Dr. Yang, and he is not a candidate for surgical revascularization or surgical AVR; of note, [facility] showed no reasonable bypass targets so doubtful he will be a CABG candidate
- Eliquis on hold; continue with heparin drip and high intensity statin
- As per cardiology, echo performed on 10/30/2024 showed severely decreased LVEF at 25-30% (down from 55%) with severe with low gradient across AV with apico-lateral hypokinesis
- Maintain SpO2 >94% with supplemental oxygen and wean down as tolerated
- Assure all medical records from [facility] are available for all providers to review
- CXR shows interstitial edema - continue with Lasix 40mg IV q6hr
- HR control with goal <110
- Continue PO amiodarone (started 11/01) per cardiology
- Continue milrinone drip (started 11/01) per cardiology; monitor for arrhythmias especially in the setting of his VERENICE
- Given his elevated WBC with possible aspiration pneumonia, Unasyn started 11/01 --> WBC is now improved and LA has normalized as of 11/02
- Recommend 5-7-days total ABx duration ssuming he continues to clinically improve and remains afebrile for 48 hours prior to stopping
- CXR on 11/01 predominantly shows interstitial edema with prominent vasculature with patchy opacification in the right midlung region; no prior CXR to compare to
- Blood cultures x2 collected 11/01 � will follow-up; follow up sputum culture (collected 11/01 - NGTD); urine antigens for Legionella + strep pneumonia both negative
- Maintain MAP>65
- Continue with milrinone drip
- Continue with Lasix, holding for hypotension
- May need a vasopressor if MAP drops <65
- Lactate elevated at 2.8 on 11/01 --> now normalized as of 11/02
- Renally dose all meds; trend UOP and sCr; strict I/O
- Replete electrolytes with K>4, Mg>2
- Patient high risk for aspiration s/p FEES � Dobbhoff tube should be placed today
- Resume levothyroxine once dobhoff tube placed
- Maintain euglycemia with goal BG 140-180
- Trend H/H and transfuse if needed to keep Hb>7g/dL; keep plt>20k, unless there is concern for bleeding then keep plt>50k
- prn nebulized bronchodilators - not currently bronchospastic
- Can use BiPAP as needed for increased WOB
- Encourage incentive spirometer use as tolerated
- DVT ppx - heparin gtt
Code status: Full code --> changed to DNR/DNI on 11/01/2024
Guarded prognosis
Adjunct Professor Of Law services will continue to follow along while patient remains in the CVICU.
Critical care statement: A total of 38 minutes of critical care time was provided for this patient today. This includes management of unstable vital signs, evaluation of the patient at bedside, reviewing the patient's pertinent medical records
including radiographs, microbiology, laboratory evaluations, and discussion with primary team, consultants, pharmacy, nutrition, physical therapy, case management, charge nurse, critical care nursing, and respiratory therapy.
Data:
CXR 11/01/2024:
Moderate CHF. Suspect superimposed right upper lobe pneumonia.
Cannot rule out component of underlying chronic interstitial lung disease.
Subjective Dataa
Subjective Data
Date of Service:
Date of Service: November 02, 2024
Chief Complaint: Adjunct Professor Of Law Follow Up
Subjective:
Patient was seen and evaluated today at bedside. Remains on milrinone at 0.3 mcg/kg/min. White count improved today and lactate also normalized. He says he feels much better today. Patient's son-in-law, Keith, at bedside - all questions were
answered. Patient's heart rate 104, BP 108/77 and saturating 95% on 6 L/min via midflow nasal cannula; he did not wear BiPAP overnight as he wore it during the day and wanted a break. Patient denies shortness of breath at rest, although has a
cough productive of white/yellow phlegm, occasionally blood-tinged. He currently denies chest pain, ALSTON, abdominal pain, nausea, vomiting, fevers or chills.
Review of Systems
General: Other (Negative unless mentioned above)
Objective Data
Data Reviewed
Vital Signs / I&O / Oxygen:
Vital Signs
Temp Pulse Resp BP Pulse Ox
97.9 F 101 26 118/76 95
11/02/24 08:00 11/02/24 09:00 11/02/24 09:00 11/02/24 09:00 11/02/24 09:20
Intake and Output
11/01/24 11/02/24 11/03/24
06:59 06:59 06:59
Intake Total 500 / 500 1237.8 / 1275.9 114.3 / 114.3
Output Total 1900 / 1900 2510 / 2860 575 / 575
Balance -1400 / -1400 -1272.2 / -1584.1 -460.7 / -460.7
SaO2 95
Nasal Cannula flow liters per 6
minute
Physical Exam
General: Respiratory Distress (negative), Comfortable, Chills (negative), Sweats (negative) and Other (Elderly male in no acute distress)
HEENT: Normocephalic and Anicteric
Cardiovascular: Irregular Rhythm (Irregularly irregular), Peripheral Edema (negative) and Other (Tachycardic)
Respiratory: Wheeze (negative), Rhonchi (negative), Non-Labored Respirations and Other (Coarse breath sounds heard bilaterally)
GI: Soft, Non Distended, Non Tender and Normal Bowel Sounds
Neurology: AO x 3 and Tremors (negative)
Skin: Warm, Dry, Cyanosis (negative) and Jaundice (negative)
Labs/Micro/Reports
Lab Data
11/02/24 03:04
11/02/24 03:04
Laboratory Results
11/01/24 11/01/24 11/02/24
14:23 21:04 03:04
APTT 71.6 H 88.7 H 76.2 H
Microbiology
11/01/24 14:59 Sputum Respiratory Culture - Final
11/01/24 14:59 Sputum Gram Stain - Final
11/01/24 14:23 Urine Legionella Urinary Antigen - Final
Negative for Legionella pneumophila Serogroup 1 antigen.
A negative result does not rule out the possiblity of
Legionella infection due to other serogroups or species of
Legionella. Clinical correlation is recommended.
11/01/24 14:23 Urine Streptococcus pneumoniae Antigen (M - Final
Negative for Streptococcus pneumoniae antigen.
A negative result does not exclude infection with
Streptococcus pneumoniae. Clinical correlation is
recommended.
11/01/24 09:15 Nasal Swab Influenza Types A & B (NICOLE) - Final
Negative for Influenza A & B, NAAT
Negative results must be combined with clinical observations
and patient history.
Nucleic Acid Amplification test (NAAT)performed on the
[employer] platform.
--- NOTE | 2024-11-02 08:30 | PTCARENOTE ---
Assumed care of patient at 0700. Pt is awake, alert, and oriented. No complaints of pain. Pt remains Afib with PVCs HR 103. BP 113/74 MAP 80. Pulse oximetry 95% on 10L midflow. Pt remains NPO at this time. García catheter in place, García care
completed. Right radial site CDI. Right groin puncture CDI. Pt remains on Milrinone 0.3mcg/kg/min, Heparin 1450units/hr, and Amio 0.5mg/min.
[2024-11-02] MEDS: NSS (PRESERVATIVE FREE) 10 ML IV (08:39)
[2024-11-02] MEDS: PROTONIX IV 40 MG IV (08:39)
[2024-11-02] MEDS: HEPARIN 25000 UNITS/250 ML IV (08:42)
--- NOTE | 2024-11-02 08:45 | W.PN.CARDCBS ---
Today's Communication / Plan
-
Continue milrinone drip
Continue IV diuresis
Continue IV amiodarone
Continue IV heparin
PICC line to be placed
Further speech evaluation for swallowing function/diet; may need temporary Dobbhoff for nutrition and meds
Impression / Plan
-
PCP: Laura Cm MD
CDY: Jose Luis Mehta MD
IMPRESSION:
Transferred from [facility] to [facility] 10/31/24
Admitted with [facility] with weakness, SOB and rapid Afib 10/30/24
Lactic acidosis
Possible cardiogenic shock
Acute on Chronic HFrEF
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
Acute cardiogenic pulmonary edema
Acute hypoxic respiratory failure
NSTEMI
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
Syncope
Severe peak/mean 48/31 and BAUDILIO 0.28 cm sq by echo at [facility] 10/31/24
Persistent Afib
Afib with RVR on admission to [facility]
VERENICE on CKD3a
HTN
HLD
Hypothyroid
GERD
Thrombophilia
Gout
R/LHC 10/31/24: multivessel CAD details unknown, PCWP 32, PA 55/36, CO/CI 2.77/1.46, SVR 1648
Echo 10/19/23: [facility] study, EF 50-55%, mod LVH, sev
Echo 10/31/24: [facility] study, EF 25-30%, grade 3 diastolic dysfunction, sev peak/mean 48.4/30.9 mmHg and BAUDILIO 0.28 cm sq
Echo 11/01/24: Normal left ventricular size with severely reduced left ventricular systolic function with regional variations, EF estimated 20%. Mild mitral regurgitation. Mild to moderate tricuspid regurgitation. Severe calcific trileaflet aortic
stenosis with mild aortic regurgitation. Although there is some variability of aortic valve gradients and atrial fibrillation, peak aortic valve velocity 416 cm/s with peak/mean gradients 69/44 mmHg. Aortic valve area estimated 0.4-0.5 cm�.
Stroke-volume index 20 cc/m�. DI 0.2 no pericardial effusion. Estimated pulmonary artery systolic pressure 64 mmHg using an estimate right atrial pressure of 10 mmHg
Plan:
Cardiogenic shock with hypoxic respiratory failure/ acute heart failure with reduced ejection fraction and severe aortic stenosis and non-STEMI with increasing leukocytosis secondary to aspiration pneumonia
-Patient remains critically ill however has shown some stabilization/improvement
-Left/right heart catheterization reviewed with Dr. Roldan Cheek. Diffuse three-vessel disease, report pending with no clear ACS culprit or PCI options. Dr. Cheek discussed case with Dr. Wero Yang, CT surgery; not a candidate for CABG.
-Right heart catheterization with RA pressure 14, wedge 32, PA pressure 55/36 with a mean of 43, PA sat 38.6%, AO sat 85%. Cardiac output/cardiac index 2.77/1.46. PVR 3.25, SVR 1648.
-Chest x-ray 10/31 with moderate heart failure possible right upper lobe pneumonia
-Continue milrinone drip for inotropic support
-He has responded well to IV Lasix 40 mg Q6 with improved weights and oxygen requirements although still requiring mid flow O2. BiPAP as needed.
-Will continue IV diuresis
-Patient is currently n.p.o. after failed speech evaluation�will talk with expansion envelope maker hand and speech therapy after reevaluation today. Will likely need temporary feeding tube for medication/nutrition
-Continue IV heparin [outpatient Eliquis held currently n.p.o.]
-Start aspirin 81 mg daily once oral access established
-Once oral atherosclerosis established: Outpatient pravastatin changed to atorvastatin for LDL on admission 84 g/dL. Goal LDL less than 70 mg/dL.
Aspiration pneumonia
-Influenza/COVID-negative. Blood cultures pending. Legionella negative.
-White blood cell count and lactic acid has improved with antibiotics
-Empiric antibiotics discussed with expansion envelope maker hand
-Appreciate speech therapy and will await reevaluation
- Aspiration precautions
Acute on chronic renal insufficiency
- Creatinine has improved/stabilized
- Appreciate nephrology input
History of persistent atrial fibrillation currently with rapid rates
-Outpatient Eliquis discontinued at time of admission to [facility] currently on IV heparin
-IV amiodarone while n.p.o.
-PICC line to be placed today
- TSH within normal limits
Severe aortic stenosis
-CT surgery is deemed patient not a candidate for CABG/AVR due to surgical risks. Unclear if he is a TAVR candidate at this time. Additionally patient is not sure he would want to undergo any further procedures.
-Avoid hypotension
-Further discussion regarding options for aortic valve such as TAVR pending clinical improvement
Message left on 's answering machine to discuss care
Updated Dr. Cheek
Discussed care/plan with nursing
CODE STATUS discussed with patient at bedside 11/01/2024 and he confirmed he wishes DNR/DNI
HPI: 84 y/o, severe presented with acute on chronic heart failure with hypoxic respiratory failure and pulmonary edema as well as rapid AFib. Treated with IV diuresis as well as BiPap support, IV diltiazem and heparin.
Workup revealed elevated HS troponin 4125, CK/MB 1438/162 peaks. Echo with new decreased systolic function with EF 25-30%, worsening , and apical lateral HK. Transferred to for R/LHC today. On arrival he was dyspneic at rest on 4LNC, SBP 90s.
Progress Note - Pneumatic Press Hand
Subjective
Date of Service: November 02, 2024
Patient was seen and examined. Currently on mid flow O2 at 10 L. Did not require BiPAP overnight. Lying supine and stating that his cough and shortness of breath which persist, have improved since yesterday. No chest pain or pressure.
Objective
Labs:
11/02/24 03:04
11/02/24 03:04
Labs
Hgb 12.8 g/dL (13.0-18.0) L 11/02/24 03:04
Hct 37.7 % (39.0-52.0) L 11/02/24 03:04
Plt Count 197 10^3/uL (130-400) 11/02/24 03:04
APTT 76.2 Sec (23.4-35.0) H 11/02/24 03:04
Sodium 138 mmol/L (135-145) 11/02/24 03:04
Potassium 3.9 mmol/L (3.5-5.1) 11/02/24 03:04
BUN 42 mg/dl (9-20) H 11/02/24 03:04
Creatinine 1.4 mg/dL (0.7-1.3) H 11/02/24 03:04
Glucose 137 mg/dl (70-99) H 11/02/24 03:04
Vital Signs and I&O:
Vital Signs
Temp Pulse Resp BP Pulse Ox
97.9 F 103 17 113/74 96
11/02/24 08:00 11/02/24 08:30 11/02/24 08:30 11/02/24 08:00 11/02/24 08:30
Vital Signs
Temp Pulse Resp BP Pulse Ox
97.9 F 103 17 113/74 96
11/02/24 08:00 11/02/24 08:30 11/02/24 08:30 11/02/24 08:00 11/02/24 08:30
Intake & Output
10/31/24 11/01/24 11/02/24 11/03/24
06:59 06:59 06:59 06:59
Intake Total 500 / 500 1237.8 / 1275.9 76.2 / 76.2
Output Total 1900 / 1900 2510 / 2860 575 / 575
Balance -1400 / -1400 -1272.2 / -1584.1 -498.8 / -498.8
Physical Exam
Physical Exam
General: Awake alert and oriented but frail with conversational dyspnea on mid flow nasal cannula O2 at 10 L
Neck: Positive JVP
Heart: Irregularly irregular. Positive S1-S2. 3/6 SM.
Lungs: Bronchovesicular breath sounds with rhonchi bilaterally and bibasilar crackles.
Abd: Nontender, nondistended. Positive bowel sounds
Ext: No edema, distal extremities warm. Radial cath site intact
Neuro: nonfocal
: García catheter placed by nursing with clear urine
--- NOTE | 2024-11-02 09:59 | CM ---
Reviewed chart. Met with Mr. Dunn to review discharge plans. He states he is feeling better. Prior to admission he resides with his spouse in a one story home with one step to enter. Prior to admission he was ambulating with a rolling walker
and independent with adls. He has a rolling walker and single point cane at home. He has a prescription plan and uses [facility]. Will need to see his current functional level to see if he will have any skilled care needs. Medical work-up
in progress. If he needs SNF/Rehab. he will need an auth. from his insurance. The discharge plan is to return home with his spouse and VNA Services if indicated verses SNF/Rehab. if indicated.
--- NOTE | 2024-11-02 10:08 | W.PN.HOSP.TC ---
Today's Communication/Plan
-
renew drips
transfer to IVU
await speech reeval
Assessment / Plan
Assessment / Plan
pt is an 84 year old male
Acute Hypoxic Respiratory Failure secondary to Acute Heart Failure with reduced EF and cardiogenic shock with Known severe aortic stenosis--weaning O2 to off--s/p 10/31 cardiac cath with evidence of multivessel disease--EF 20% with severe --apprec
cards/CT surg--not surgical candidate--medical management--on IV heparin (likely with conversion back to Eliquis)--on amio drip and milrinone drip--transfer to IVU--cont diuresis (Lasix adjusted to 40 mg IV Q6H)--daily weights, I/Os--Card to direct
TAVR eval for severe
Permanent Atrial Fibrillation with RVR noted --Cont heparin drip for anticoagulation ([employer] on Eliquis)--s/p digoxin per card--coreg x1 dose --amio drip
NSTEMI--s/p cardiac cath with evidence of multivessel disease--apprec CT surg--not surgical candidate
VERENICE on CKD IIIA--creat 1.6 -> 1.5; baseline ~1.2--layton for now with active diuresis--apprec renal/cards
Leucocytosis, suspect reactive--CXR noted Moderate CHF. Suspect superimposed right upper lobe pneumonia--COVID/Fu negative --procal positive--cont unasyn for now
swallowing issues--failed bedside fiberoptic swallowing eval--NPO--await reeval by speech
Elevated Glucose (hyperglycemia)--HgbA1c 6.0%--Continue diabetic diet--Monitor sugars and continue coverage insulin
Essential Hypertension--BP running on the low side--Hold all meds for now
Hyperlipidemia--Changed pravastatin to Lipitor
Hypothyroidism--TSH 2.76--Continue levothyroxine
Isolated elevation of AST--cont to monitor
DVT proph--Heparin drip
Code Status--Full Code
Anticipated Discharge: > 48 hours
Subjective/Interval History
-
Date of Service: November 02, 2024
pt tells me, more people know what is going on than he does....
also tells me, swallowing issues ongoing for 6 months
Objective Data
-
Labs:
Laboratory Results
11/02/24
03:04
WBC 13.3 H
Hgb 12.8 L
Hct 37.7 L
Plt Count 197
APTT 76.2 H
Sodium 138
Potassium 3.9
Chloride 107
Carbon Dioxide 22
BUN 42 H
Creatinine 1.4 H
Glucose 137 H
Calcium 8.9
Total Bilirubin 1.8 H
AST 79 H
ALT 41
Alkaline Phosphatase 73
Vital Signs:
max temp for 24 hours
10/31/24
14:03 11/01/24
19:00 11/02/24
05:49
Temp 98.1 F
Actual Weight 78.471 kg 75.7 kg
Vital Signs
Temp Pulse Resp BP Pulse Ox
97.9 F 101 26 118/76 95
11/02/24 08:00 11/02/24 09:00 11/02/24 09:00 11/02/24 09:00 11/02/24 09:20
I&O
11/01/24 11/02/24 11/03/24
06:59 06:59 06:59
Intake Total 500 / 500 1237.8 / 1275.9 114.3 / 114.3
Output Total 1900 / 1900 2510 / 2860 575 / 575
Balance -1400 / -1400 -1272.2 / -1584.1 -460.7 / -460.7
Review of Systems
-
All other systems: Reviewed and negative
Physical Exam
-
General: Well Developed, Well Nourished and No Apparent Distress
HEENT: Normocephalic and Atraumatic
Respiratory: Clear to Auscultation; Negative Wheezes or Rhonchi
Cardiac: Irregular Rhythm and Murmur
GI: Soft, Nontender, Nondistended and Normal Bowel Sounds
Genito-urinary: Layton
Musculoskeletal: No Clubbing, No Cyanosis and No Edema
Skin: Warm
Neuro: Awake
Psych: Calm
--- NOTE | 2024-11-02 12:14 | W.PN.UPDATE ---
Update Note
Progress Note Update
Consent obtained. Dobhoff tube was advanced through the left nares without issue. Abd x-ray showed distal tip is in the stomach. Wire was removed.
--- NOTE | 2024-11-02 12:15 | PTCARENOTE ---
Dobhoff placed by CT RASHAUN Elo. X-ray obtained. Dobhoff placed in left nare at 65cm. RUE PICC line placed by VAT RN, awaiting x-ray for placement. Pt remains Afib/Aflutter with PVCs. HR 90's-113. Pulse oximetry 94% on 8L midflow. Remains on
Milrinone, Amio, and Heparin.
[2024-11-02] MEDS: PRIMACOR 20 MG 100 IV ×2 (12:41→23:55)
[2024-11-02 12:48] LABS: Glucose - Point of Care 130 mg/dl (70-99)
--- NOTE | 2024-11-02 16:05 | PTCARENOTE ---
pt reassessment unchanged, pending RD assessment for TF, amio gtt dced, started PO amio, layton, 6LMF, Mirilone gtt, heparin gtt, TLPicc
[2024-11-02] MEDS: PACERONE 200 MG PO (16:19)
[2024-11-02] MEDS: LOW STRENGTH ASPIRIN 81 MG PO (16:20)
[2024-11-02 18:10] LABS: Glucose - Point of Care 147 mg/dl (70-99)
[2024-11-02] MEDS: PACERONE 200 MG TUBE (21:56)
[2024-11-02 23:48] LABS: Glucose - Point of Care 127 mg/dl (70-99)
[2024-11-03] VITALS (26 sets, daily range): BP systolic 87–110; BP diastolic 57–87; PULSE 103; O2SAT 96; BMI 25.5
[2024-11-03] MEDS: HEPARIN 25000 UNITS/250 ML IV ×2 (00:06→17:30)
--- NOTE | 2024-11-03 00:43 | PTCARENOTE ---
Addendum entered by Mary Kate Watkins, WILLIAM 11/03/24 01:03:
late entry 199911/02/2024
Patient remains stable
Original Note:
pt tolerating TF, advanced to 40cc/hr, amio PO, laxis given , clear yellow urine in layton, 6LMF, Mirilone gtt, heparin gtt, TLPIC, Patietn remains stable.
--- NOTE | 2024-11-03 00:59 | PTCARENOTE ---
0000 patient Alert and oriented, tube feed advanced to 40cc/hr. CHG bath completed, patient denies pain at this time VSS. Patient remains on Milrinone and Heparin drips García in palce , clear yellow urine.
[2024-11-03] MEDS: LASIX 40 MG IV ×2 (04:27→16:28)
[2024-11-03 04:32] LABS: Hematocrit 37.9 % (39.0-52.0); Hemoglobin 13.1 g/dL (13.0-18.0); Mean Corp Hgb Conc. 34.6 g/dL (33.0-37.0); Mean Corpuscular Hgb 29.6 pg (27.0-31.0); Mean Corpuscular Volume 85.6 fL (80.0-94.0); Mean Platelet Volume 11.5 fL (7.4-10.4); Platelet Count 207 10^3/uL (130-400); Red Blood Cell Count 4.43 10^6/uL (4.70-6.10); Red Cell Dist. Width 14.2 % (11.5-14.5); White Blood Cell Count 11.7 10^3/uL (4.8-10.8)
[2024-11-03 04:37] LABS: APTT 72.8 Sec (23.4-35.0)
[2024-11-03 04:56] LABS: ALT (SGPT) 38 U/L (0-50); AST (SGOT) 52 U/L (17-59); Albumin 3.6 g/dl (3.5-5.0); Alkaline Phosphatase 77 U/L (38-126); Blood Urea Nitrogen 41 mg/dl (9-20); Carbon Dioxide 25 mmol/L (22-30); Chloride 106 mmol/L (98-107); Estimated Creatinine Clearance 40 ml/min; Glucose 164 mg/dl (70-99); Potassium 3.6 mmol/L (3.5-5.1); Sodium 140 mmol/L (135-145); Total Bilirubin 1.8 mg/dl (0.2-1.3); Total Protein 6.4 g/dl (6.3-8.2); eGFR 54.51
[2024-11-03] MEDS: SYNTHROID 75 MCG TUBE (06:13)
[2024-11-03] MEDS: UNASYN IV ×4 (06:13→23:28)
[2024-11-03 06:26] LABS: Glucose - Point of Care 148 mg/dl (70-99)
[2024-11-03] MEDS: NOVOLOG FLEXPEN-LOW RESISTANCE SC ×2 (06:27→23:34)
--- NOTE | 2024-11-03 06:34 | PTCARENOTE ---
Addendum entered by Mary Kate Watkins RN 11/03/24 06:37:
heparin increased to 1550units/hour 15.5 ml/hr atfer aPTT results of 78.8
Original Note:
patient had CHG bath, layton emptied of clear yellow urine. lab drawn, Patient remains on Heparin drip at 14.5.
--- NOTE | 2024-11-03 08:27 | W.PN.INTV ---
Today's Communication / Plan
Recommendations
Continue midflow nasal cannula; maintain SpO2 >94%
Use BiPAP as needed for increased work of breathing
Diruese and maintain net negative fluid balance as BP tolerates
Defer TAVR candidacy to cardiology
Continue Unasyn
Follow up Infectious workup
TF per DHT
Aspiration precautions
Milrinone drip while monitoring for arrhythmias given VERENICE
Trend UOP
Guarded prognosis; DNR/DNI as of 11/01
Continue IVU level care; Pulmonary services will continue to briefly follow along
Assessment
-
Assessment: 84-year-old male with a past medical history of aortic stenosis, A-fib on Eliquis, hyperlipidemia and CKD who presented to [facility] after syncopal event. EKG showed A-fib with RVR with concerning EKG changes with inferior and
anterolateral ST depressions with lateral T wave inversions. CXR also showed interstitial pulmonary edema. He was transferred here to [place] for cardiac catheterization. Patient was hypotensive with concern for cardiogenic shock.
Financial Systems Analyst/pulmonary service now consulted for additional management/recommendations.
Chronic medical conditions: Severe , CHF, permanent A-fib on Eliquis, gout, HTN, CKD IIIa, hypothyroidism, GERD, sciatica
Impression:
#Acute HFrEF
#Cardiogenic shock on milrinone gtt
#Lactic acidosis due to above � lactic acidosis resolved
#Acute cardiogenic pulmonary edema
#Leukocytosis � improving
#Acute hypoxic respiratory failure
#Suspected aspiration pneumonia
#Syncope
#Severe aortic stenosis with aortic valve pullback gradient: 13 mmHg via recent [facility]
#Elevated troponin likely due to NSTEMI
#Severe diffuse CAD involving LAD, diagonal branches + RCA
#A-fib with RVR (on eliquis as outpatient for permanent A-fib)
#VERENICE due to cardiorenal syndrome in the setting of CKD
#Former tobacco smoker (20-PY Hx - quit 1995)
#Gout
#Hypothyroidism
#Sciatica
Plan:
- Patient transferred here to [facility] for left heart catheterization which showed multivessel CAD without good PCI targets
- Patient was evaluated by CT surgery, Dr. Yang, and he is not a candidate for surgical revascularization or surgical AVR; of note, LHC showed no reasonable bypass targets
- Eliquis on hold; continue with heparin drip; statin currently on hold
- As per cardiology, echo performed on 10/30/2024 showed severely decreased LVEF at 25-30% (down from 55%) with severe with low gradient across AV with apico-lateral hypokinesis
- Maintain SpO2 >94% with supplemental oxygen and wean down as tolerated
- Continue midflow nasal cannula
- Assure all medical records from [facility] are available for all providers to review
- CXR shows interstitial edema - continue with Lasix 40mg IV q6hr with holding parameters
- HR control with goal <110
- Continue PO amiodarone (started 11/01) per cardiology
- Continue milrinone drip (started 11/01) per cardiology; monitor for arrhythmias especially in the setting of his VERENICE
- Nephrology consulted due to his VERENICE
- Given his leukocytosis with suspected aspiration pneumonia, Unasyn started 11/01 --> WBC is improving and LA has normalized as of 11/02
- Recommend 5-7-days total ABx duration ssuming he continues to clinically improve and remains afebrile for 48 hours prior to stopping
- CXR on 11/01 predominantly shows interstitial edema with prominent vasculature with patchy opacification in the right midlung region; no prior CXR to compare to
- Blood cultures x2 collected 11/01 � will follow-up; follow up sputum culture (collected 11/01 - NGTD); urine antigens for Legionella + strep pneumonia both negative
- Maintain MAP>65
- Continue with milrinone drip
- Continue with Lasix, holding for hypotension
- May need a vasopressor if MAP drops <65
- Lactate elevated at 2.8 on 11/01 --> now normalized as of 11/02
- Renally dose all meds; trend UOP and sCr; strict I/O
- Replete electrolytes with K>4, Mg>2
- Patient high risk for aspiration s/p FEES � Dobbhoff tube placed 11/02 --> continue tube feeds
- Continue levothyroxine
- Maintain euglycemia with goal BG 140-180
- Trend H/H and transfuse if needed to keep Hb>7g/dL; keep plt>20k, unless there is concern for bleeding then keep plt>50k
- prn nebulized bronchodilators - not currently bronchospastic
- Can use BiPAP as needed for increased WOB
- Encourage incentive spirometer use as tolerated
- DVT ppx - heparin gtt
Code status: Full code --> changed to DNR/DNI on 11/01/2024
Guarded prognosis; pt downgraded to IVU on 11/02.
Pulmonary services will continue to briefly follow along.
Critical care statement: A total of 41 minutes of critical care time was provided for this patient today. This includes management of unstable vital signs, evaluation of the patient at bedside, reviewing the patient's pertinent medical records
including radiographs, microbiology, laboratory evaluations, and discussion with primary team, consultants, pharmacy, nutrition, physical therapy, case management, charge nurse, critical care nursing, and respiratory therapy.
Data:
CXR 11/01/2024:
Moderate CHF. Suspect superimposed right upper lobe pneumonia.
Cannot rule out component of underlying chronic interstitial lung disease.
Subjective Dataa
Subjective Data
Date of Service:
Date of Service: November 03, 2024
Chief Complaint: Financial Systems Analyst Follow Up
Subjective:
Patient was seen and evaluated today at bedside. Feels tired today, did not sleep well overnight as he says he was disturbed by the ICU staff. Current heart rate 114, BP 92/75 on milrinone at 0.3 mcg/kg/min. Saturating 94% on 4 L/min. Currently
on heparin drip. Also on tube feeds with no nausea/vomiting. Also denies ALSTON, SOB, chest pain.
Review of Systems
General: Other (Negative unless mentioned above)
Objective Data
Data Reviewed
Vital Signs / I&O / Oxygen:
Vital Signs
Temp Pulse Resp BP Pulse Ox
97.5 F 94 16 105/80 96
11/03/24 08:00 11/03/24 09:06 11/03/24 08:00 11/03/24 09:06 11/03/24 09:06
Intake and Output
11/02/24 11/03/24 11/04/24
06:59 06:59 06:59
Intake Total 1237.8 / 1275.9 2055.3 / 2152.7 572.2 / 572.2
Output Total 2510 / 2860 3900 / 3900 300 / 300
Balance -1272.2 / -1584.1 -1844.7 / -1747.3 272.2 / 272.2
SaO2 96
Nasal Cannula flow liters per 6
minute
Physical Exam
General: Respiratory Distress (negative), Comfortable, Chills (negative), Sweats (negative) and Other (Elderly male in no acute distress)
HEENT: Normocephalic and Anicteric
Cardiovascular: Irregular Rhythm (Irregularly irregular), Peripheral Edema (negative) and Other (Tachycardic)
Respiratory: Wheeze (negative), Rhonchi (negative), Non-Labored Respirations and Other (Coarse breath sounds heard bilaterally)
GI: Soft, Non Distended, Non Tender and Normal Bowel Sounds
Neurology: AO x 3 and Tremors (negative)
Skin: Warm, Dry, Cyanosis (negative) and Jaundice (negative)
Labs/Micro/Reports
Lab Data
11/03/24 04:12
11/03/24 04:12
Laboratory Results
11/03/24
04:12
APTT 72.8 H
Microbiology
11/01/24 10:53 Blood/Venous Blood Culture - Preliminary
No Growth in 24 hours- Final report to follow
11/01/24 09:23 Blood/Venous Blood Culture - Preliminary
No Growth in 24 hours- Final report to follow
11/01/24 14:59 Sputum Respiratory Culture - Final
11/01/24 14:59 Sputum Gram Stain - Final
11/01/24 14:23 Urine Legionella Urinary Antigen - Final
Negative for Legionella pneumophila Serogroup 1 antigen.
A negative result does not rule out the possiblity of
Legionella infection due to other serogroups or species of
Legionella. Clinical correlation is recommended.
11/01/24 14:23 Urine Streptococcus pneumoniae Antigen (M - Final
Negative for Streptococcus pneumoniae antigen.
A negative result does not exclude infection with
Streptococcus pneumoniae. Clinical correlation is
recommended.
11/01/24 09:15 Nasal Swab Influenza Types A & B (NICOLE) - Final
Negative for Influenza A & B, NAAT
Negative results must be combined with clinical observations
and patient history.
Nucleic Acid Amplification test (NAAT)performed on the
[employer] platform.
[2024-11-03] MEDS: KCL 270 MEQ IV (08:29)
--- NOTE | 2024-11-03 08:30 | PTCARENOTE ---
Patient received from casino shift manager RN; AAOx3, responds spontaneously to RN and follows commands; VSS; Afib with PVC's; +2 DP and radial pulses; JENKINS; Non-productive, occasional cough; 6L NC; Lungs diminished throughout; Tube feeding going through left
nare - Dobhoff at 65 with Jevity 1.5 at 60 ml/hr with 25 ml water Q1H flushes; García catheter draining clear, yellow urine; Surgical wounds intact; Right PICC line with milrinone and heparin infusing - see nursing flowsheets for further details;
PIVx2 intact; See nursing documentation for further information
[2024-11-03] MEDS: NSS (PRESERVATIVE FREE) 10 ML IV (08:32)
[2024-11-03] MEDS: PACERONE 200 MG TUBE ×3 (08:32→22:01)
[2024-11-03] MEDS: LOW STRENGTH ASPIRIN 81 MG TUBE (08:32)
[2024-11-03] MEDS: PROTONIX IV 40 MG IV (08:32)
--- NOTE | 2024-11-03 08:37 | W.PN.NEPH.PH ---
Today's Communication / Plan
-
Diuresing
Milrinone per cardiology
Creatinine at baseline
Assessment/Plan
-
Assessment
Non-ST elevation IA
Acute kidney injury
CKD 3A baseline 1.2
Prediabetes
Atrial fibrillation
Severe aortic stenosis
Hypertension now hypotension
Plan
VERENICE in setting of cardio-renal syndrome
creatinine down to 1.3 and grossly non oliguric >3 liters
Reportedly he is not a surgical candidate
For milrinone per cardiology
ok for low dose becki (discussed with cardiology)
Continue intravenous Lasix for diuresis
Follow BMP
Critical care time spent 31 minutes
-
-
Date of Service: November 03, 2024
CC / HPI / ROS
-
Chief Complaint:
VERENICE
History of Present Illness:
VERENICE/creatinine slightly better at 1.3
Blood pressure low but stable
Severe shortness of breath overnight
Diuresing with IV Lasix
Review of Systems:
No current chest pain or shortness of breath. Wearing supplemental oxygen
weights down
grossly non oliguric
Labs
-
Labs:
WBC 11.7 10^3/uL (4.8-10.8) H 11/03/24 04:12
RBC 4.43 10^6/uL (4.70-6.10) L 11/03/24 04:12
Hgb 13.1 g/dL (13.0-18.0) 11/03/24 04:12
Hct 37.9 % (39.0-52.0) L 11/03/24 04:12
Plt Count 207 10^3/uL (130-400) 11/03/24 04:12
Sodium 140 mmol/L (135-145) 11/03/24 04:12
Potassium 3.6 mmol/L (3.5-5.1) 11/03/24 04:12
Chloride 106 mmol/L (98-107) 11/03/24 04:12
Carbon Dioxide 25 mmol/L (22-30) 11/03/24 04:12
BUN 41 mg/dl (9-20) H 11/03/24 04:12
Creatinine 1.3 mg/dL (0.7-1.3) 11/03/24 04:12
eGFR 54.51 11/03/24 04:12
Glucose 164 mg/dl (70-99) H 11/03/24 04:12
Calcium 9.0 mg/dl (8.4-10.2) 11/03/24 04:12
Phosphorus 3.7 mg/dl (2.5-4.5) 11/01/24 14:23
Albumin 3.6 g/dl (3.5-5.0) 11/03/24 04:12
Physical Exam
-
Vital Signs:
Vital Signs
Temp Pulse Resp BP Pulse Ox
97.5 F 111 16 110/78 97
11/03/24 08:00 11/03/24 08:00 11/03/24 08:00 11/03/24 06:00 11/03/24 08:00
Cardiovascular:: Regular rate and rhythm
Respiratory:: Bilateral: Coarse
Lung Excursion:: Normal
Abdomen:: Nontender and Soft
Bowel Sounds:: Normal
Extremity Edema:: None: Bilateral:
García Catheter: Yes
[2024-11-03] MEDS: ZESTRIL 2.5 MG PO (09:12)
--- NOTE | 2024-11-03 11:09 | W.PN.HOSP.TC ---
Today's Communication/Plan
-
renew drips
medical management
speech eval--currently Dobhoff with tube feeds at goal
d/c planning
Assessment / Plan
Assessment / Plan
pt is an 84 year old male
Acute Hypoxic Respiratory Failure secondary to Acute Heart Failure with reduced EF and cardiogenic shock with known severe aortic stenosis--weaning O2 to off--s/p 10/31 cardiac cath with evidence of multivessel disease--EF 20% with severe --apprec
cards/CT surg--not surgical candidate--medical management--on IV heparin (likely with conversion back to Eliquis) once able to take PO--on amio drip and milrinone drip--transfer to IVU--cont diuresis (Lasix adjusted to 40 mg IV Q8H)--daily weights,
I/Os--Cards to direct TAVR eval for severe
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
NSTEMI--s/p cardiac cath with evidence of multivessel disease--apprec CT surg--not surgical candidate
VERENICE on CKD IIIA--creat 1.6 -> 1.3; baseline ~1.2--layton for now with active diuresis--apprec renal/cards
Leukocytosis, suspect reactive--CXR noted Moderate CHF. Suspect superimposed right upper lobe pneumonia--COVID/Fu negative --procal positive--cont unasyn for now
swallowing issues--failed bedside fiberoptic swallowing eval--NPO--await re-eval by speech--dobhoff placed and tube feeds at goal
Elevated Glucose (hyperglycemia)--HgbA1c 6.0%--Continue diabetic diet--Monitor sugars and continue coverage insulin
Essential Hypertension--BP running on the low side--Hold all meds for now
Hyperlipidemia--Changed pravastatin to Lipitor
Hypothyroidism--TSH 2.76--Continue levothyroxine
Isolated elevation of AST--cont to monitor
DVT proph--Heparin drip
Code Status--listed as DNR
therapy recommending home health
Anticipated Discharge: > 48 hours
Subjective/Interval History
-
Date of Service: November 03, 2024
pt feeling good--sitting in the chair--tube feeds at goal
Objective Data
-
Labs:
Laboratory Results
11/03/24 11/03/24
04:12 12:30
WBC 11.7 H
Hgb 13.1
Hct 37.9 L
Plt Count 207
APTT 72.8 H Pending
Sodium 140
Potassium 3.6
Chloride 106
Carbon Dioxide 25
BUN 41 H
Creatinine 1.3
Glucose 164 H
Calcium 9.0
Total Bilirubin 1.8 H
AST 52
ALT 38
Alkaline Phosphatase 77
Vital Signs:
max temp for 24 hours
11/03/24
04:20
Temp 98.0 F
Vital Signs
Temp Pulse Resp BP Pulse Ox
97.5 F 94 16 105/80 96
11/03/24 08:00 11/03/24 09:06 11/03/24 08:00 11/03/24 09:06 11/03/24 09:06
I&O
11/02/24 11/03/24 11/04/24
06:59 06:59 06:59
Intake Total 1237.8 / 1275.9 2055.3 / 2152.7 604.6 / 604.6
Output Total 2510 / 2860 3900 / 3900 300 / 300
Balance -1272.2 / -1584.1 -1844.7 / -1747.3 304.6 / 304.6
Review of Systems
-
All other systems: Reviewed and negative
Physical Exam
-
General: Well Developed, Well Nourished and No Apparent Distress
HEENT: Normocephalic and Atraumatic
Respiratory: Clear to Auscultation; Negative Wheezes or Rhonchi
Cardiac: Irregular Rhythm
GI: Soft, Nontender, Nondistended and Normal Bowel Sounds
Genito-urinary: Layton
Musculoskeletal: No Clubbing, No Cyanosis and No Edema
Skin: Warm and Dry
Neuro: Awake and Alert
Psych: Calm
[2024-11-03] MEDS: LASIX IV (11:32)
[2024-11-03 11:56] LABS: Glucose - Point of Care 189 mg/dl (70-99)
[2024-11-03] MEDS: NOVOLOG FLEXPEN-LOW RESISTANCE 1 UNITS SC ×2 (11:56→17:32)
--- NOTE | 2024-11-03 12:00 | PTCARENOTE ---
Patient ambulated with assist x1 with RW to chair; Tolerating tube feed; IV Lasix AM dose held due to SBP <100 following Lisinopril dose
--- NOTE | 2024-11-03 12:30 | W.PN.CARDCBS ---
Today's Communication / Plan
-
Continue IV milrinone at current dose
Continue IV diuresis but reduce Lasix
Trial of lisinopril 2.5 mg daily
Start atorvastatin
Continue oral amiodarone
Continue aspirin and IV heparin gtt
Antibiotics for aspiration pneumonia
Dobbhoff with tube feed nutrition and ongoing speech therapy evaluation
Possible repeat right heart catheterization next week; will discuss with interventional cardiology
Impression / Plan
-
PCP: Laura Cm MD
CDY: Jose Luis Mehta MD
IMPRESSION:
Transferred from [facility] to [facility] 10/31/24
Admitted with [facility] with weakness, SOB and rapid Afib 10/30/24
Lactic acidosis
Possible cardiogenic shock
Acute on Chronic HFrEF
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
Acute cardiogenic pulmonary edema
Acute hypoxic respiratory failure
NSTEMI
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
Syncope
Severe peak/mean 48/31 and BAUDILIO 0.28 cm sq by echo at [facility] 10/31/24
Persistent Afib
Afib with RVR on admission to [facility]
VERENICE on CKD3a
HTN
HLD
Hypothyroid
GERD
Thrombophilia
Gout
R/LHC 10/31/24: multivessel CAD details unknown, PCWP 32, PA 55/36, CO/CI 2.77/1.46, SVR 1648
Echo 10/19/23: [facility] study, EF 50-55%, mod LVH, sev
Echo 10/31/24: [facility] study, EF 25-30%, grade 3 diastolic dysfunction, sev peak/mean 48.4/30.9 mmHg and BAUDILIO 0.28 cm sq
Echo 11/01/24: Normal left ventricular size with severely reduced left ventricular systolic function with regional variations, EF estimated 20%. Mild mitral regurgitation. Mild to moderate tricuspid regurgitation. Severe calcific trileaflet aortic
stenosis with mild aortic regurgitation. Although there is some variability of aortic valve gradients and atrial fibrillation, peak aortic valve velocity 416 cm/s with peak/mean gradients 69/44 mmHg. Aortic valve area estimated 0.4-0.5 cm�.
Stroke-volume index 20 cc/m�. DI 0.2 no pericardial effusion. Estimated pulmonary artery systolic pressure 64 mmHg using an estimate right atrial pressure of 10 mmHg
Plan:
Cardiogenic shock with hypoxic respiratory failure/ acute heart failure with reduced ejection fraction and severe aortic stenosis and non-STEMI with increasing leukocytosis secondary to aspiration pneumonia
-Patient remains critically ill however continuing to show stabilization/improvement
-Left/right heart catheterization reviewed with Dr. Roldan Cheek. Diffuse three-vessel disease, report pending with no clear ACS culprit or PCI options. Dr. Cheek discussed case with Dr. Wero Yang, CT surgery; not a candidate for CABG.
-Right heart catheterization with RA pressure 14, wedge 32, PA pressure 55/36 with a mean of 43, PA sat 38.6%, AO sat 85%. Cardiac output/cardiac index 2.77/1.46. PVR 3.25, SVR 1648.
-Chest x-ray 10/31 with moderate heart failure possible right upper lobe pneumonia. Repeat chest x-ray after Dobbhoff placement and PICC line placement with bilateral enteral additional type pneumonia or pulmonary edema and minimal bilateral pleural
effusions.
-Continue milrinone drip for inotropic support; will discuss with interventional cardiology right heart catheterization on Tuesday to reassess hemodynamics
-He has responded well to IV Lasix 40 mg Q6 with improved weights and oxygen requirements with improved O2 requirements
-11 pound weight loss with weight today 162 pounds
-Will continue IV diuresis but reduce 40 mg IV Q6 to twice daily; may need an additional dose but will follow clinically
-Keep K greater than 4, mag greater than 2
-Patient is currently n.p.o. after failed speech evaluation now with Dobbhoff tube
-Continue IV heparin [outpatient Eliquis held]-will continue IV heparin with anticipation of right heart catheterization early next week
-Aspirin 81 mg daily per tube
-Trial of lisinopril 2.5 mg this morning
-Outpatient pravastatin changed to atorvastatin 40 mg daily for LDL on admission 84 g/dL. Goal LDL less than 70 mg/dL.
Aspiration pneumonia
-Influenza/COVID-negative. Blood cultures pending. Legionella negative.
-White blood cell count and lactic acid has improved with antibiotics
-Empiric antibiotics discussed with veterinary assistant
-Appreciate speech therapy and will await reevaluation
-Dobbhoff placed 11/02/2024; tube feed nutrition per veterinary assistant/hospitalist
- Aspiration precautions
Acute on chronic renal insufficiency secondary to cardiogenic shock
- Creatinine has improved/stabilized back to baseline
History of persistent atrial fibrillation currently with rapid rates
-Outpatient Eliquis discontinued at time of admission to [facility] currently on IV heparin
-IV amiodarone while n.p.o.
-PICC line to be placed today
- TSH within normal limits
Severe aortic stenosis
-CT surgery is deemed patient not a candidate for CABG/AVR due to surgical risks. Unclear if he is a TAVR candidate at this time. Additionally patient is not sure he would want to undergo any further procedures.
-Avoid hypotension
-Further discussion regarding options for aortic valve such as TAVR pending clinical improvement
Hypothyroidism on levothyroxine
CODE STATUS discussed with patient at bedside 11/01/2024 and he confirmed he wishes DNR/DNI
HPI: 84 y/o, severe presented with acute on chronic heart failure with hypoxic respiratory failure and pulmonary edema as well as rapid AFib. Treated with IV diuresis as well as BiPap support, IV diltiazem and heparin.
Workup revealed elevated HS troponin 4125, CK/MB 1438/162 peaks. Echo with new decreased systolic function with EF 25-30%, worsening , and apical lateral HK. Transferred to for R/LHC today. On arrival he was dyspneic at rest on 4LNC, SBP 90s.
Progress Note - Cafeteria Assistant
Subjective
Date of Service: November 03, 2024
Patient seen and examined sitting out of bed to chair. Overall feeling fatigue but states shortness of breath/cough is improved and no chest pain.
Objective
Labs:
11/03/24 04:12
11/03/24 04:12
Labs
Hgb 13.1 g/dL (13.0-18.0) 11/03/24 04:12
Hct 37.9 % (39.0-52.0) L 11/03/24 04:12
Plt Count 207 10^3/uL (130-400) 11/03/24 04:12
APTT 72.8 Sec (23.4-35.0) H 11/03/24 04:12
Sodium 140 mmol/L (135-145) 11/03/24 04:12
Potassium 3.6 mmol/L (3.5-5.1) 11/03/24 04:12
BUN 41 mg/dl (9-20) H 11/03/24 04:12
Creatinine 1.3 mg/dL (0.7-1.3) 11/03/24 04:12
Glucose 164 mg/dl (70-99) H 11/03/24 04:12
Vital Signs and I&O:
Vital Signs
Temp Pulse Resp BP Pulse Ox
97.5 F 109 16 92/75 96
11/03/24 08:00 11/03/24 11:00 11/03/24 08:00 11/03/24 11:00 11/03/24 11:00
Vital Signs
Temp Pulse Resp BP Pulse Ox
97.5 F 109 16 92/75 96
11/03/24 08:00 11/03/24 11:00 11/03/24 08:00 11/03/24 11:00 11/03/24 11:00
Intake & Output
11/01/24 11/02/24 11/03/24 11/04/24
06:59 06:59 06:59 06:59
Intake Total 500 / 500 1237.8 / 1275.9 2055.3 / 2152.7 604.6 / 604.6
Output Total 1900 / 1900 2510 / 2860 3900 / 3900 300 / 300
Balance -1400 / -1400 -1272.2 / -1584.1 -1844.7 / -1747.3 304.6 / 304.6
Physical Exam
Physical Exam
General: Awake alert and oriented, NAD, Dobbhoff with tube feeds
Heart: Irregularly irregular. Positive S1-S2. 08/23 SM.
Lungs: Bronchovesicular breath sounds with rhonchi bilaterally and bibasilar crackles.
Abd: Nontender, nondistended. Positive bowel sounds
Ext: No edema, distal extremities warm. Radial cath site intact
Neuro: nonfocal
: García catheter clear urine
[2024-11-03 12:37] LABS: APTT 72.3 Sec (23.4-35.0)
--- NOTE | 2024-11-03 12:56 | PTOTSP ---
Speech Pathology
Dysphagia Follow Up
Initiated dysphagia tx this date. Pt completed 2 sets of x10 effortful swallows with use of ice chips. Endorses fatigue s/p exercise. Continued to reinforce completing 3 sets of x10 effortful swallows 3x a day in order to help improve strength and
efficiency of swallow. Patient and caregivers verbalized agreement and understanding. VSE planned for Tuesday, orders placed by MD.
Continue with current recommendations:
1. NPO - DHT in place
2. Non-oral meds
3. ARHP - unlimited ice chips with supervision
4. Dysphagia therapy at the acute care level for education, pharyngeal swallowing exercises, video swallow study planned for Tuesday (to r/o esophageal component)
[2024-11-03] MEDS: PRIMACOR 20 MG 100 IV (13:29)
[2024-11-03 15:17] LABS: Magnesium 2.1 mg/dl (1.6-2.3); Potassium 4.1 mmol/L (3.5-5.1)
--- NOTE | 2024-11-03 16:00 | PTCARENOTE ---
Patient had 14 beat run of Vtach when standing patient up out of chair this afternoon - patient asymptomatic and VSS; MD Stanford notified and aware - EKG, K, and Mag levels ordered and completed; Patient had loose BM on BSC later this afternoon;
SBP >100 this afternoon and IV Lasix able to be given
[2024-11-03] MEDS: LIPITOR 40 MG PO (17:20)
[2024-11-03 17:35] LABS: Glucose - Point of Care 159 mg/dl (70-99)
[2024-11-03 20:16] LABS: APTT 77.6 Sec (23.4-35.0)
--- NOTE | 2024-11-03 20:38 | PTCARENOTE ---
1899
Recieved from RN @ 1900. Patient laying comfortbaly in bed w/ call santiago in reach. Alert and oriented, Denies pain. A. Fib on monitor, BP 103/74 MAP 85 HR 97. Heart sounds audible. Radial and pedal pulses present. Lungs clear but diminished
in bases bilaterally. IS 1250 POX 93% 2L NC. Occasional dry non productive cough noted. Bowel sounds normoactive. Tube Feed Jevity 1.5 at goal rate of 60cc/hr with 25 cc/hr flush. Minial resiual. García draining clear yellow urine WNL, García
care completed . Right groin site CDI, Right radial site dressing CDI. aPPT 77.6, heparin drip @1650 nits/hr , next aPPT at 0130. Milrinone @.3mcg/kg/min. CHG bath done Linens chaged. See worklist for details.
[2024-11-03 23:25] LABS: Glucose - Point of Care 139 mg/dl (70-99)
[2024-11-04] VITALS (18 sets, daily range): BP systolic 92–126; BP diastolic 67–92; PULSE 2–122; BMI 26.0
--- NOTE | 2024-11-04 01:04 | PTCARENOTE ---
0000 patient resting, vital signs stable, A Fib on monitor, denies pain. 93% on 2 L NC
[2024-11-04 02:49] LABS: Hematocrit 37.4 % (39.0-52.0); Hemoglobin 12.7 g/dL (13.0-18.0); Mean Corpuscular Hgb 29.1 pg (27.0-31.0); Mean Corpuscular Volume 85.6 fL (80.0-94.0); Mean Platelet Volume 11.3 fL (7.4-10.4); Platelet Count 206 10^3/uL (130-400); Red Blood Cell Count 4.37 10^6/uL (4.70-6.10); Red Cell Dist. Width 14.3 % (11.5-14.5); White Blood Cell Count 10.4 10^3/uL (4.8-10.8)
[2024-11-04] MEDS: PRIMACOR 20 MG 100 IV ×2 (02:49→17:20)
[2024-11-04 03:34] LABS: Blood Urea Nitrogen 43 mg/dl (9-20); Calcium 8.9 mg/dl (8.4-10.2); Carbon Dioxide 26 mmol/L (22-30); Chloride 107 mmol/L (98-107); Estimated Creatinine Clearance 44 ml/min; Glucose 155 mg/dl (70-99); Magnesium 2.1 mg/dl (1.6-2.3); Potassium 3.8 mmol/L (3.5-5.1); Sodium 139 mmol/L (135-145); eGFR > 60.00
--- NOTE | 2024-11-04 03:35 | PTCARENOTE ---
patient bathed,linend changed small BM, VSS, labs drawn, PPT within therapeutic range
[2024-11-04] MEDS: KCL 100 IV (04:09)
[2024-11-04] MEDS: SYNTHROID 75 MCG TUBE (05:31)
[2024-11-04] MEDS: UNASYN IV ×3 (05:31→17:07)
[2024-11-04 05:45] LABS: Glucose - Point of Care 186 mg/dl (70-99)
[2024-11-04] MEDS: NOVOLOG FLEXPEN-LOW RESISTANCE 1 UNITS SC ×2 (05:51→17:20)
[2024-11-04] MEDS: LASIX 40 MG IV ×4 (07:00→17:06)
[2024-11-04] MEDS: HEPARIN 25000 UNITS/250 ML IV ×2 (07:08→21:00)
[2024-11-04] MEDS: DUONEB 3 ML INH (07:09)
[2024-11-04] MEDS: PACERONE 200 MG TUBE ×3 (07:45→22:25)
[2024-11-04] MEDS: NSS (PRESERVATIVE FREE) 10 ML IV (07:45)
[2024-11-04] MEDS: LOW STRENGTH ASPIRIN 81 MG TUBE (07:45)
[2024-11-04] MEDS: PROTONIX IV 40 MG IV (07:46)
--- NOTE | 2024-11-04 07:46 | W.PN.NEPH.PH ---
Today's Communication / Plan
-
GFR at baseline
Assessment/Plan
-
Assessment
Non-ST elevation IA
Acute kidney injury
CKD 3A baseline 1.2
Prediabetes
Atrial fibrillation
Severe aortic stenosis
Hypertension now hypotension
Plan
VERENICE in setting of cardio-renal syndrome
creatinine down to 1.2 and grossly non oliguric >1.7 liters
Reportedly he is not a surgical candidate
For milrinone per cardiology
bp too labile for becki at this time
Continue intravenous Lasix for diuresis
Follow BMP
we will sign off
-
-
Date of Service: November 04, 2024
CC / HPI / ROS
-
Chief Complaint:
VERENICE
History of Present Illness:
VERENICE/creatinine slightly better at 1.2
Blood pressure low but stable
Severe shortness of breath overnight
Diuresing with IV Lasix
Review of Systems:
No current chest pain or shortness of breath. Wearing supplemental oxygen
weights stable
grossly non oliguric
Labs
-
Labs:
WBC 10.4 10^3/uL (4.8-10.8) 11/04/24 02:30
RBC 4.37 10^6/uL (4.70-6.10) L 11/04/24 02:30
Hgb 12.7 g/dL (13.0-18.0) L 11/04/24 02:30
Hct 37.4 % (39.0-52.0) L 11/04/24 02:30
Plt Count 206 10^3/uL (130-400) 11/04/24 02:30
Sodium 139 mmol/L (135-145) 11/04/24 02:30
Potassium 3.8 mmol/L (3.5-5.1) 11/04/24 02:30
Chloride 107 mmol/L (98-107) 11/04/24 02:30
Carbon Dioxide 26 mmol/L (22-30) 11/04/24 02:30
BUN 43 mg/dl (9-20) H 11/04/24 02:30
Creatinine 1.2 mg/dL (0.7-1.3) 11/04/24 02:30
eGFR > 60.00 11/04/24 02:30
Glucose 155 mg/dl (70-99) H 11/04/24 02:30
Calcium 8.9 mg/dl (8.4-10.2) 11/04/24 02:30
Phosphorus 3.7 mg/dl (2.5-4.5) 11/01/24 14:23
Albumin 3.6 g/dl (3.5-5.0) 11/03/24 04:12
Physical Exam
-
Vital Signs:
Vital Signs
Temp Pulse Resp BP Pulse Ox
97.1 F 110 20 126/92 93
11/04/24 03:12 11/04/24 07:13 11/04/24 07:13 11/04/24 07:00 11/04/24 04:00
Cardiovascular:: Regular rate and rhythm
Respiratory:: Bilateral: Coarse
Lung Excursion:: Normal
Abdomen:: Nontender and Soft
Bowel Sounds:: Normal
Extremity Edema:: None: Bilateral:
García Catheter: Yes
--- NOTE | 2024-11-04 08:34 | W.PN.HOSP.TC ---
Today's Communication/Plan
-
STAT CXR
held tube feeds
increased lasix dosing
cards aware
wean off BIPAP as tolerated
possible RHC today or tomorrow
Assessment / Plan
Assessment / Plan
pt is an 84 year old male
Acute Hypoxic Respiratory Failure secondary to Acute Heart Failure with reduced EF and cardiogenic shock with known severe aortic stenosis----s/p 10/31 cardiac cath with evidence of multivessel disease--EF 20% with severe -- apprec cards/CT
surg--not surgical candidate--medical management--pt needed to go back on BiPAP with 15L O2 due to acute resp distress and dropping sats 11/04/24 likely from decreased lasix--cards aware and restarting more lasix--STAT CXR ----on IV heparin (likely
with conversion back to Eliquis) once able to take PO--on PO amio and milrinone drip--cont diuresis--daily weights, I/Os--Cards to direct TAVR eval for severe --possible RHC today or tomorrow
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
NSTEMI--s/p cardiac cath with evidence of multivessel disease--apprec CT surg--not surgical candidate
VERENICE on CKD IIIA--creat 1.6 -> 1.2--resolved; baseline ~1.2--layton for now with active diuresis--apprec renal/cards
Leukocytosis, suspect reactive--CXR noted Moderate CHF-- Suspect superimposed right upper lobe pneumonia?-- WBC count now normal BUT pt having diarrhea--5 this AM--likely from tube feeds but will check C. Diff with unasyn therapy--COVID/Fu negative
--procal positive--cont unasyn for now
swallowing issues--failed bedside fiberoptic swallowing eval--NPO--await re-eval by MIKKI shook Tuesday--dobhoff placed and tube feeds were at goal--but now on hold
Elevated Glucose (hyperglycemia)--HgbA1c 6.0%--Continue diabetic diet--Monitor sugars and continue coverage insulin
Essential Hypertension--BP running on the low side--Hold all meds for now
Hyperlipidemia--Changed pravastatin to Lipitor
Hypothyroidism--TSH 2.76--Continue levothyroxine
Isolated elevation of AST--cont to monitor
DVT proph--Heparin drip
Code Status--listed as DNR
therapy recommending home health
Anticipated Discharge: > 48 hours
Subjective/Interval History
-
Date of Service: November 04, 2024
called to see patient for resp distress and dropping sats--placed on BiPAP 03/12 on 15L
Objective Data
-
Labs:
Laboratory Results
11/04/24
02:30
WBC 10.4
Hgb 12.7 L
Hct 37.4 L
Plt Count 206
APTT 110.0 H
Sodium 139
Potassium 3.8
Chloride 107
Carbon Dioxide 26
BUN 43 H
Creatinine 1.2
Glucose 155 H
Calcium 8.9
Vital Signs:
max temp for 24 hours
11/03/24
19:39
Temp 97.9 F
Vital Signs
Temp Pulse Resp BP Pulse Ox
97.9 F 109 40 120/72 92
11/04/24 07:53 11/04/24 08:00 11/04/24 08:17 11/04/24 08:00 11/04/24 08:17
I&O
11/03/24 11/04/24 11/05/24
06:59 06:59 06:59
Intake Total 2054.3 / 2151.7 3577.0 / 3610.4 66.8 / 66.8
Output Total 3900 / 3900 1845 / 1945 275 / 275
Balance -1844.7 / -1747.3 1732.0 / 1665.4 -208.2 / -208.2
Review of Systems
-
All other systems: Reviewed and negative
Respiratory: Reports Trouble Breathing (feels better with the BiPAP on)
Physical Exam
-
General: Well Developed, Well Nourished and No Apparent Distress
HEENT: Normocephalic, Atraumatic and Oxygen (on BiPAP currently)
Respiratory: Decreased Breath Sounds; Negative Rales, Rhonchi or Crackles
Cardiac: Irregular Rhythm and Tachycardic
GI: Soft, Nontender, Nondistended and Normal Bowel Sounds
Genito-urinary: [place]
Musculoskeletal: No Clubbing, No Cyanosis and No Edema
Skin: Warm
Neuro: Awake and Alert
--- NOTE | 2024-11-04 09:00 | PTCARENOTE ---
Patient received from [facility] shift lead RN; AAOx3, responds spontaneously to RN and follows commands but restless; Flat affect; Afib with PVC's on monitor; +2 DP and radial pulses; JENKINS and dyspnea at rest; Labored breathing, tachypneic; Non-productive,
occasional cough; SpO2 86-91% on 6L NC - placed on BiPAP by RT 15L 16/6; Expiratory wheeze throughout and given PRN Duoneb; CXR taken at bedside; Tube feeding going through left nare - Dobhoff at 65 with Jevity 1.5 at 60 ml/hr with 25 ml water Q1H
flushes but put on hold as per MD Stanford; Diarrhea present - stool sample sent for C.Diff; García catheter draining clear, yellow urine; Surgical wounds intact; Right PICC line with milrinone and heparin infusing - see nursing flowsheets for
further details; PIVx1 intact; Additional IV Lasix given; See nursing documentation for further information
--- NOTE | 2024-11-04 09:05 | W.PN.CARDCBS ---
Today's Communication / Plan
-
Optimize hemodynamics as able
Diurese
Discussing with interventional cardiology possible right heart catheterization tomorrow
Impression / Plan
-
PCP: Laura Cm MD
CDY: Jose Luis Mehta MD
IMPRESSION:
Transferred from [facility] to [facility] 10/31/24
Admitted with [facility] with weakness, SOB and rapid Afib 10/30/24
Lactic acidosis
Possible cardiogenic shock
Acute on Chronic HFrEF
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
Acute cardiogenic pulmonary edema
Acute hypoxic respiratory failure
NSTEMI
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
Syncope
Severe peak/mean 48/31 and BAUDILIO 0.28 cm sq by echo at [facility] 10/31/24
Persistent Afib
Afib with RVR on admission to [facility]
VERENICE on CKD3a
HTN
HLD
Hypothyroid
GERD
Thrombophilia
Gout
R/LHC 10/31/24: multivessel CAD details unknown, PCWP 32, PA 55/36, CO/CI 2.77/1.46, SVR 1648
Echo 10/19/23: [facility] study, EF 50-55%, mod LVH, sev
Echo 10/31/24: [facility] study, EF 25-30%, grade 3 diastolic dysfunction, sev peak/mean 48.4/30.9 mmHg and BAUDILIO 0.28 cm sq
Echo 11/01/24: Normal left ventricular size with severely reduced left ventricular systolic function with regional variations, EF estimated 20%. Mild mitral regurgitation. Mild to moderate tricuspid regurgitation. Severe calcific trileaflet aortic
stenosis with mild aortic regurgitation. Although there is some variability of aortic valve gradients and atrial fibrillation, peak aortic valve velocity 416 cm/s with peak/mean gradients 69/44 mmHg. Aortic valve area estimated 0.4-0.5 cm�.
Stroke-volume index 20 cc/m�. DI 0.2 no pericardial effusion. Estimated pulmonary artery systolic pressure 64 mmHg using an estimate right atrial pressure of 10 mmHg
Plan:
Cardiogenic shock with hypoxic respiratory failure/ acute heart failure with reduced ejection fraction and severe aortic stenosis and non-STEMI with increasing leukocytosis secondary to aspiration pneumonia
-Left/right heart catheterization previously reviewed with Dr. Roldan Cheek. Diffuse three-vessel disease, report pending with no clear ACS culprit or PCI options. Dr. Cheek discussed case with Dr. Wero Yang, CT surgery; not a candidate for
CABG/AVR.
-Right heart catheterization with RA pressure 14, wedge 32, PA pressure 55/36 with a mean of 43, PA sat 38.6%, AO sat 85%. Cardiac output/cardiac index 2.77/1.46. PVR 3.25, SVR 1648.
-Chest x-ray 10/31 with moderate heart failure possible right upper lobe pneumonia. Repeat chest x-ray after Dobbhoff placement and PICC line placement with bilateral enteral additional type pneumonia or pulmonary edema and minimal bilateral pleural
effusions.
-Notified by nursing for acute decompensation this morning with sats 87 to 88% despite increasing mid flow O2 placed on BiPAP at 15 L. Patient was given 80 mg of Lasix in 2 divided doses and a nebulizer. Tube feeds were temporarily held.
-Chest x-ray shows diffuse interstitial opacification
-Repeat lactic acid not elevated
-He was seen several times over the course of the day with improved respiratory symptoms and oxygenation. By afternoon he was back on 6 L mid flow nasal cannula
-Once initial diuresis from morning Lasix had started to wean, Lasix 40 mg IV every 6 hours was resumed as he had previously tolerated prior to Lasix reduction yesterday with 11 pound weight loss with weight today 162 pounds [3 pound weight gain
since yesterday]
-Continue milrinone drip for inotropic support
-Right heart catheterization placement of [place]-Devi catheter Tuesday to reassess hemodynamics
-Telemetry remains atrial fibrillation with PVCs. 14 beat NSVT 11/03/2024; no further NSVT
-Keep K greater than 4, mag greater than 2
-Continue IV heparin [outpatient Eliquis held]-will continue IV heparin with anticipation of right heart catheterization early next week
-Medications currently through Dobbhoff tube
-Aspirin 81 mg daily per tube
-No further lisinopril At this time status post 1 dose of 2.5 mg on 11/03/2024
-Outpatient pravastatin changed to atorvastatin 40 mg daily for LDL on admission 84 g/dL. Goal LDL less than 70 mg/dL.
Aspiration pneumonia
-Influenza/COVID-negative. Blood cultures pending. Legionella negative.
-White blood cell count and lactic acid has improved with antibiotics
-Empiric antibiotics discussed with classification officer
-Appreciate speech therapy and will await reevaluation
-Dobbhoff placed 11/02/2024; tube feed nutrition per classification officer/hospitalist
- Aspiration precautions
Acute on chronic renal insufficiency secondary to cardiogenic shock
- Creatinine has improved/stabilized back to baseline
History of persistent atrial fibrillation currently with rapid rates
-Outpatient Eliquis discontinued at time of admission to [facility] currently on IV heparin
-Amiodarone through tube 200 mg 3 times daily
- TSH within normal limits
Severe aortic stenosis
-CT surgery is deemed patient not a candidate for CABG/AVR due to surgical risks. Unclear if he is a TAVR candidate at this time.
-Avoid hypotension
-Further discussion regarding options for aortic valve such as TAVR pending clinical improvement
Hypothyroidism on levothyroxine
CODE STATUS discussed with patient at bedside 11/01 and again this morning; he confirmed he wishes DNR/DNI
HPI: 84 y/o, severe presented with acute on chronic heart failure with hypoxic respiratory failure and pulmonary edema as well as rapid AFib. Treated with IV diuresis as well as BiPap support, IV diltiazem and heparin.
Workup revealed elevated HS troponin 4125, CK/MB 1438/162 peaks. Echo with new decreased systolic function with EF 25-30%, worsening , and apical lateral HK. Transferred to for R/LHC today. On arrival he was dyspneic at rest on 4LNC, SBP 90s.
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
Subjective
Date of Service: November 04, 2024
Seen and examined multiple times today. Events overnight reviewed with nursing�patient became acutely hypoxic with increased respiratory rate/tachypnea and hypoxia with increasing O2 requirements now on BiPAP. Patient improved throughout the
course of the day, later transition to 6 L mid flow nasal cannula O2. No chest pain or pressure.
Objective
Labs:
11/04/24 02:30
11/04/24 02:30
Labs
Hgb 12.7 g/dL (13.0-18.0) L 11/04/24 02:30
Hct 37.4 % (39.0-52.0) L 11/04/24 02:30
Plt Count 206 10^3/uL (130-400) 11/04/24 02:30
APTT 110.0 Sec (23.4-35.0) H 11/04/24 02:30
Sodium 139 mmol/L (135-145) 11/04/24 02:30
Potassium 3.8 mmol/L (3.5-5.1) 11/04/24 02:30
BUN 43 mg/dl (9-20) H 11/04/24 02:30
Creatinine 1.2 mg/dL (0.7-1.3) 11/04/24 02:30
Glucose 155 mg/dl (70-99) H 11/04/24 02:30
Vital Signs and I&O:
Vital Signs
Temp Pulse Resp BP Pulse Ox
97.9 F 109 40 120/72 92
11/04/24 07:53 11/04/24 08:00 11/04/24 08:17 11/04/24 08:00 11/04/24 08:17
Vital Signs
Temp Pulse Resp BP Pulse Ox
97.9 F 109 40 120/72 92
11/04/24 07:53 11/04/24 08:00 11/04/24 08:17 11/04/24 08:00 11/04/24 08:17
Intake & Output
11/02/24 11/03/24 11/04/24 11/05/24
06:59 06:59 06:59 06:59
Intake Total 1237.8 / 1275.9 2055.3 / 2152.7 3577.0 / 3610.4 90.2 / 90.2
Output Total 2510 / 2860 3900 / 3900 1845 / 1945 420 / 420
Balance -1272.2 / -1584.1 -1844.7 / -1747.3 1732.0 / 1665.4 -329.8 / -329.8
Physical Exam
Physical Exam
General: Initially awake alert and oriented on BiPAP, Tachypneic in acute distress
Heart: Irregularly irregular. Tachycardic Positive S1-S2. 3/6 SM.
Lungs: Bronchovesicular breath sounds with rhonchi bilaterally and Increased crackles.
Abd: Nontender, nondistended. Positive bowel sounds
Ext: No edema, distal extremities warm. Radial cath site intact
Neuro: nonfocal
: García catheter clear urine
--- NOTE | 2024-11-04 11:30 | W.PN.PUL3 ---
Today's Communication / Plan
-
Continue midflow nasal cannula; maintain SpO2 >94%
Use BiPAP as needed for acute dyspnea
Believe he is having worsening interstitial edema per CXR today (11/04), as CXR today shows slightly increased opacification in the perihilar regions (R >L)
Diruese and maintain net negative fluid balance as BP tolerates
Defer RHC to cardiology
Defer TAVR candidacy to cardiology
Continue Unasyn for 7 days total
Follow up Infectious workup
TF via DHT; LANDSCAPE PHOTOGRAPHER to continue to follow
Aspiration precautions
Milrinone drip while monitoring for arrhythmias given VERENICE, which Cr is thankfully improving
Trend UOP
Guarded prognosis; DNR/DNI as of 11/01
Continue IVU level care; Pulmonary services will continue to follow along
Assessment
-
Assessment: 84-year-old male with a past medical history of aortic stenosis, A-fib on Eliquis, hyperlipidemia and CKD who presented to [facility] after syncopal event. EKG showed A-fib with RVR with concerning EKG changes with inferior and
anterolateral ST depressions with lateral T wave inversions. CXR also showed interstitial pulmonary edema. He was transferred here to [place] for cardiac catheterization. Patient was hypotensive with concern for cardiogenic shock.
Simulation Analyst/pulmonary service now consulted for additional management/recommendations.
Chronic medical conditions: Severe , CHF, permanent A-fib on Eliquis, gout, HTN, CKD IIIa, hypothyroidism, GERD, sciatica
Impression:
#Acute HFrEF
#Cardiogenic shock on milrinone gtt
#Lactic acidosis due to above � lactic acidosis resolved
#Acute cardiogenic pulmonary edema
#Leukocytosis � resolved as of 11/04
#Acute hypoxic respiratory failure
#Suspected aspiration pneumonia
#Syncope
#Severe aortic stenosis with aortic valve pullback gradient: 13 mmHg via recent C
#Elevated troponin likely due to NSTEMI
#Severe diffuse CAD involving LAD, diagonal branches + RCA
#A-fib with RVR (on eliquis as outpatient for permanent A-fib) - Cr improving
#VERENICE due to cardiorenal syndrome in the setting of CKD
#Former tobacco smoker (20-PY Hx - quit 1995)
#Gout
#Hypothyroidism
#Sciatica
Plan:
- Patient transferred here to [facility] for left heart catheterization which showed multivessel CAD without good PCI targets
- Patient was evaluated by CT surgery, Dr. Yang, and he is not a candidate for surgical revascularization or surgical AVR; of note, LHC showed no reasonable bypass targets
- Eliquis on hold; continue with heparin drip; statin resumed as of 11/03
- As per cardiology, echo performed on 10/30/2024 showed severely decreased LVEF at 25-30% (down from 55%) with severe with low gradient across AV with apico-lateral hypokinesis
- Maintain SpO2 >94% with supplemental oxygen and wean down as tolerated
- Continue midflow nasal cannula
- Assure all medical records from [facility] are available for all providers to review
- CXR shows interstitial edema, which CXR today (11/04) showed slightly worsening perihilar opacification likely due to worsening interstitial edema- continue with Lasix 40mg IV q6hr with holding parameters
- May be helpful to obtain a right heart cath once patient stable enough and can tolerate lying flat
- prn nebulized bronchodilators - not currently bronchospastic
- Can use BiPAP as needed for increased WOB
- HR control with goal <110
- Continue PO amiodarone (started 11/01) per cardiology
- Continue milrinone drip (started 11/01) per cardiology; monitor for arrhythmias especially in the setting of his VERENICE
- Nephrology consulted due to his VERENICE
- Given his leukocytosis with suspected aspiration pneumonia, Unasyn started 11/01 --> WBC is improving and LA has normalized as of 11/02
- Recommend 5-7-days total ABx duration ssuming he continues to clinically improve and remains afebrile for 48 hours prior to stopping
- CXR on 11/01 predominantly shows interstitial edema with prominent vasculature with patchy opacification in the right midlung region; no prior CXR to compare to
- Blood cultures x2 collected 11/01 � will follow-up; follow up sputum culture (collected 11/01 - NGTD); urine antigens for Legionella + strep pneumonia both negative
- Maintain MAP>65
- Continue with milrinone drip
- Continue with Lasix, holding for hypotension
- May need a vasopressor if MAP drops <65
- Lactate elevated at 2.8 on 11/01 --> now normalized as of 11/02
- Renally dose all meds; trend UOP and sCr; strict I/O
- Replete electrolytes with K>4, Mg>2
- Patient high risk for aspiration s/p FEES � Dobbhoff tube placed 11/02 --> continue tube feeds
- Continue levothyroxine
- Maintain euglycemia with goal BG 140-180
- Trend H/H and transfuse if needed to keep Hb>7g/dL; keep plt>20k, unless there is concern for bleeding then keep plt>50k
- Encourage incentive spirometer use as tolerated
- DVT ppx - heparin gtt
Code status: Full code --> changed to DNR/DNI on 11/01/2024
Guarded prognosis; pt downgraded to IVU on 11/02.
Pulmonary services will continue to briefly follow along.
Data:
CXR 11/01/2024:
Moderate CHF. Suspect superimposed right upper lobe pneumonia.
Cannot rule out component of underlying chronic interstitial lung disease.
Total time spent today was 79 minutes for this encounter. Time includes reviewing laboratory test/imaging results, reviewing pertinent medical records, obtaining and reviewing medical history, performing an appropriate exam, ordering medications,
tests and procedures. Time also includes documentation of this encounter, coordinating patient care and communicating with other healthcare professionals. Total time does not include separately billed tests performed on this date of service.
Subjective Data
-
Date of Service:
Date of Service: November 04, 2024
Chief Complaint: Pulmonary Follow Up
Subjective:
Patient was seen and evaluated this morning. Remains on milrinone at 0.3 mcg/kg's per minute, heparin drip as well. Currently saturating 98% on 8 L/min nasal cannula. He was more short of breath this morning and required BiPAP which he says
helped him greatly. Of note, he does not use CPAP/BiPAP at home. Currently heart rate 112. He denies chest pain, AL[place], nausea, fevers or chills.
Review of Systems
General: Other (Negative unless mentioned above)
Objective Data
Data Reviewed
Vital Signs / I&O / Oxygen:
Vital Signs
Temp Pulse Resp BP Pulse Ox
97.9 F 109 31 120/72 94
11/04/24 07:53 11/04/24 08:00 11/04/24 09:05 11/04/24 08:00 11/04/24 10:05
Intake and Output
11/03/24 11/04/24 11/05/24
06:59 06:59 06:59
Intake Total 2055.3 / 2152.7 3577.0 / 3610.4 90.2 / 90.2
Output Total 3900 / 3900 1845 / 1945 420 / 420
Balance -1844.7 / -1747.3 1732.0 / 1665.4 -329.8 / -329.8
SaO2 94
Nasal Cannula flow liters per 6
minute
Physical Exam
General: Respiratory Distress (negative), Comfortable, Chills (negative) and Sweats (negative)
HEENT: Normocephalic, Anicteric and Moist Mucous Membranes
Cardiovascular: Irregular Rhythm (Irregularly irregular), Peripheral Edema (negative) and Other (Tachycardic)
Respiratory: Crackles (Bilaterally (L >R))
GI: Soft, Non Distended, Non Tender, Normal Bowel Sounds and NG Tube
Neurology: AO x 3 and Tremors (negative)
Skin: Warm, Dry, Cyanosis (negative) and Jaundice (negative)
Labs/Micro/Reports
Lab Data
11/04/24 02:30
Laboratory Results
11/03/24 11/03/24 11/03/24
12:09 19:32 19:56
APTT 72.3 H Cancelled 77.6 H
11/04/24
02:30
APTT 110.0 H
Microbiology
11/01/24 09:23 Blood/Venous Blood Culture - Preliminary
No Growth in 72 hours- Final report to follow
11/04/24 08:52 Feces/Stool C. difficile GDH Antigen & Toxins - Final
Negative for toxigenic C.difficile
11/01/24 10:53 Blood/Venous Blood Culture - Preliminary
No Growth in 48 hours- Final report to follow
11/01/24 14:59 Sputum Respiratory Culture - Final
11/01/24 14:59 Sputum Gram Stain - Final
11/01/24 14:23 Urine Legionella Urinary Antigen - Final
Negative for Legionella pneumophila Serogroup 1 antigen.
A negative result does not rule out the possiblity of
Legionella infection due to other serogroups or species of
Legionella. Clinical correlation is recommended.
11/01/24 14:23 Urine Streptococcus pneumoniae Antigen (M - Final
Negative for Streptococcus pneumoniae antigen.
A negative result does not exclude infection with
Streptococcus pneumoniae. Clinical correlation is
recommended.
11/01/24 09:15 Nasal Swab Influenza Types A & B (NICOLE) - Final
Negative for Influenza A & B, NAAT
Negative results must be combined with clinical observations
and patient history.
Nucleic Acid Amplification test (NAAT)performed on the
[employer] platform.
--- NOTE | 2024-11-04 12:00 | PTCARENOTE ---
Oxygen weaned to 8L Midflow; Tube feed remains on hold; BMP, Mag, and Lactic Acid drawn; Urine output responding appropriately to IV Lasix
[2024-11-04 12:01] LABS: Glucose - Point of Care 123 mg/dl (70-99)
[2024-11-04] MEDS: NOVOLOG FLEXPEN-LOW RESISTANCE SC (12:03)
[2024-11-04 12:26] LABS: Lactic Acid 1.4 mmol/L (0.7-2.0)
[2024-11-04 13:06] LABS: Blood Urea Nitrogen 41 mg/dl (9-20); Calcium 9.2 mg/dl (8.4-10.2); Carbon Dioxide 27 mmol/L (22-30); Chloride 106 mmol/L (98-107); Estimated Creatinine Clearance 40 ml/min; Glucose 135 mg/dl (70-99); Magnesium 2.1 mg/dl (1.6-2.3); Potassium 4.5 mmol/L (3.5-5.1); Sodium 140 mmol/L (135-145); eGFR 54.51
--- NOTE | 2024-11-04 16:00 | PTCARENOTE ---
Tube feed restarted as per MD Stanford; IV Lasix continued; Oxygen continues to be weaned
[2024-11-04] MEDS: LIPITOR 40 MG PO (16:10)
[2024-11-04 17:18] LABS: Glucose - Point of Care 175 mg/dl (70-99)
--- NOTE | 2024-11-04 21:00 | PTCARENOTE ---
Patient received resting in bed watching television. No c/o pain or discomfort. Patient A+A+Ox3. No neurological deficits noted. No c/o headache, dizziness or lightheadedness. Midflow Oxygen 4L. SpO2 94%. Bilateral lung bases diminished. No
wheezing. Mild JENKINS at rest. Atrial Fibrillation. Heart rate 100's. No c/o chest pain, pressure or discomfort. Normoactive bowel sounds. One episode of small amount of liquidity brown stool. Skin intact. No skin breakdown noted. Patient with
nasogastric tube - Small bore Dobhoff tube via left nare - Intact and patent - Tube feeding Jevity 1.5 at goal rate of 60 ml/hr with automatic water flush 25 ml/hr. No c/o nausea. No vomiting. NPO. Patient continues with García catheter - Yellow
urine - Outputs as documented. Dressing to right groin intact. Positive, palpable pulses. Patient continues on Milrinone gtt and IV Heparin gtt. Right arm triple lumen PICC - Intact and patent. Patient given CHG bath and linens changed.
Patient resting in bed watching television. Assessment as documented.
[2024-11-05] VITALS (20 sets, daily range): BP systolic 75–116; BP diastolic 58–87; PULSE 104; O2SAT 99; BMI 25.7
[2024-11-05 00:28] LABS: Glucose - Point of Care 160 mg/dl (70-99)
[2024-11-05] MEDS: NOVOLOG FLEXPEN-LOW RESISTANCE 1 UNITS SC ×3 (00:36→11:54)
[2024-11-05] MEDS: LASIX 40 MG IV ×5 (00:36→23:49)
[2024-11-05] MEDS: UNASYN IV ×5 (00:37→23:49)
--- NOTE | 2024-11-05 01:00 | PTCARENOTE ---
Patient sleeping without difficulty. No further changes from previous assessment.
[2024-11-05 04:44] LABS: Hematocrit 39.8 % (39.0-52.0); Hemoglobin 13.3 g/dL (13.0-18.0); Mean Corp Hgb Conc. 33.4 g/dL (33.0-37.0); Mean Corpuscular Volume 86.7 fL (80.0-94.0); Mean Platelet Volume 11.2 fL (7.4-10.4); Platelet Count 228 10^3/uL (130-400); Red Blood Cell Count 4.59 10^6/uL (4.70-6.10); Red Cell Dist. Width 14.3 % (11.5-14.5)
[2024-11-05 04:52] LABS: APTT 148.9 Sec (23.4-35.0)
--- NOTE | 2024-11-05 05:15 | PTCARENOTE ---
Patient resting in bed - Dozing intermittently. AM lab work collected and sent. Midflow Oxygen 6L. SpO2 96%. Assessment/Interventions as documented.
[2024-11-05 05:33] LABS: Glucose - Point of Care 188 mg/dl (70-99)
[2024-11-05] MEDS: SYNTHROID 75 MCG TUBE (05:49)
[2024-11-05] MEDS: PRIMACOR 20 MG 100 IV ×2 (05:50→18:16)
[2024-11-05 06:04] LABS: Blood Urea Nitrogen 37 mg/dl (9-20); Calcium 8.5 mg/dl (8.4-10.2); Carbon Dioxide 25 mmol/L (22-30); Chloride 109 mmol/L (98-107); Estimated Creatinine Clearance 48 ml/min; Glucose 132 mg/dl (70-99); Magnesium 2.1 mg/dl (1.6-2.3); Potassium 3.8 mmol/L (3.5-5.1); Sodium 141 mmol/L (135-145); eGFR > 60.00
--- NOTE | 2024-11-05 07:41 | PTCARENOTE ---
Received pt from shift superintendent RN; pt AAOX3 and resting comfortably in bed; A-fib on monitor and VSS; Right Triple Lumen PICC patent; Milrinone and Heparin infusing see flow sheet for details; Lungs diminished with fine crackles at bases; Left nare
Dobbhoff in place and patent; positive bowel sounds; García catheter draining yellow urine; palpable pulses throughout; no edema noted; see nursing documentation for further detail.
[2024-11-05] MEDS: PACERONE 200 MG TUBE ×3 (08:21→22:32)
[2024-11-05] MEDS: PROTONIX IV 40 MG IV (08:21)
[2024-11-05] MEDS: NSS (PRESERVATIVE FREE) 10 ML IV (08:21)
[2024-11-05] MEDS: LOW STRENGTH ASPIRIN 81 MG TUBE (08:21)
--- NOTE | 2024-11-05 08:59 | PTCARENOTE ---
Pt sent to Outpatient Radiology for Video Swallow.
--- NOTE | 2024-11-05 09:28 | W.PN.HOSP.TC ---
Today's Communication/Plan
-
see bold
Assessment / Plan
Assessment / Plan
HPI: 84 y/o male past medical history of paroxysmal atrial fibrillation, hypertension, hyperlipidemia and hypothyroidism who was transferred from [facility] today for urgent cardiac catheterization. Patient initially presented to [facility] last evening. He was admitted to the hospital after he had a syncopal, and was found to be hypoxic as well as in A-Fib with RVR. Overnight his troponin tended up significantly and he was transferred to [facility] for cardiac
catheterization.
Acute Hypoxic Respiratory Failure secondary to Acute Heart Failure with reduced EF and cardiogenic shock with known severe aortic stenosis
-S/p 10/31 cardiac cath with evidence of multivessel disease
-EF 20% with severe
-Apprec cards/CT surg--not surgical candidate-medical management
-Pt needed to go back on BiPAP with 15L O2 due to acute resp distress and dropping sats 11/04/24 likely from decreased lasix--cards aware and restarted more lasix
-Currently requiring 6 L of oxygen today
-Patient for right heart catheterization today, continue milrinone and IV Lasix
-Continue IV heparin (likely with conversion back to Eliquis) once able to take PO
-Discussions regarding possible future TAVR once clinically stabilized
Permanent Atrial Fibrillation with RVR noted
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
-s/p digoxin per card--coreg x1 dose --was on amio drip, now on amio PO through Dobhoff
NSTEMI
-s/p cardiac cath with evidence of multivessel disease
-apprec CT surg--not surgical candidate
VERENICE on CKD IIIA
-creat 1.6 -resolved; baseline ~1.2
-layton for now with active diuresis--apprec renal/cards
Leukocytosis, suspect reactive
-CXR noted Moderate CHF
-Suspect superimposed right upper lobe pneumonia?
-WBC count now normal BUT pt having diarrhea on 11/04--likely from tube feeds
-COVID/Flu negative --procal positive--cont unasyn for now
Dysphagia
-failed bedside fiberoptic swallowing eval
-dobhoff placed, continue tube feeds
-VSE w/ aspiration of all textures
-NPO, c/s neurology
Elevated Glucose (hyperglycemia)
-HgbA1c 6.0%
-Continue diabetic diet
-Monitor sugars and continue coverage insulin
Essential Hypertension
-BP running on the low side
-Hold all meds for now
Hyperlipidemia
-Changed pravastatin to Lipitor
Hypothyroidism
-TSH 2.76--Continue levothyroxine
Isolated elevation of AST
-cont to monitor
Left hip pain
- Likely from arthritis, denies trauma
- Monitor
DVT proph--Heparin drip
Code Status--listed as DNR
PT rec HH
Total time spent to see the patient on the floor, examine the patient, review data and lab results, discuss treatment plan with patient, nursing staff around 52 minutes.
Physical Exam
General: No acute distress
HEENT: Normocephalic, Atraumatic, EOMI, MMM
Respiratory: Bibasilar crackles
Cardiac: Irregularly irregular, tachycardic rate
GI: Soft, Nontender, Nondistended, Normal Bowel Sounds
Extremities: No Clubbing, Cyanosis, or Edema
Subjective/Interval History
-
Date of Service: November 05, 2024
Patient complains of left hip soreness. Denies injury. Denies chest pain, shortness of breath, palpitations. No fever, no vomiting.
Objective Data
-
Labs:
Laboratory Results
11/05/24 11/05/24
04:26 12:30
WBC 12.0 H
Hgb 13.3
Hct 39.8
Plt Count 228
APTT 148.9 H Pending
Sodium 141
Potassium 3.8
Chloride 109 H
Carbon Dioxide 25
BUN 37 H
Creatinine 1.1
Glucose 132 H
Calcium 8.5
Vital Signs:
Vital Signs
Temp Pulse Resp BP Pulse Ox
97.5 F 100 20 96/83 96
11/05/24 08:00 11/05/24 08:00 11/05/24 08:00 11/05/24 08:00 11/05/24 09:09
I&O
11/04/24 11/05/24 11/06/24
06:59 06:59 06:59
Intake Total 3577.0 / 3610.4 2285.1 / 2292.0 28.3 / 28.3
Output Total 1845 / 1945 3240 / 3415 325 / 325
Balance 1732.0 / 1665.4 -954.9 / -1123.0 -296.7 / -296.7
--- NOTE | 2024-11-05 09:31 | W.PN.CARDCBS ---
Addendum entered and electronically signed by Sweta Stanford DO 11/05/24 09:51:
Updated daughter Carmen. Telephone number [phone]
Original Note:
Today's Communication / Plan
-
Right heart catheterization today
Continue milrinone and Lasix
Repeat EKG today on amiodarone
Discussions regarding possible future TAVR once clinically stabilized
Continue IV heparin pending procedure today and eventually transition to NOAC through Dobbhoff
Failed video swallow�will need to discuss long-term plan. May need GI consult
Impression / Plan
-
PCP: Laura Cm MD
CDY: Jose Luis Mehta MD
IMPRESSION:
Transferred from [facility] to [facility] 10/31/24
Admitted with [facility] with weakness, SOB and rapid Afib 10/30/24
Lactic acidosis
Possible cardiogenic shock
Acute on Chronic HFrEF
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
Acute cardiogenic pulmonary edema
Acute hypoxic respiratory failure
NSTEMI
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
Syncope
Severe peak/mean 48/31 and BAUDILIO 0.28 cm sq by echo at [facility] 10/31/24
Persistent Afib
Afib with RVR on admission to [facility]
VERENICE on CKD3a
HTN
HLD
Hypothyroid
GERD
Thrombophilia
Gout
R/LHC 10/31/24: multivessel CAD details unknown, PCWP 32, PA 55/36, CO/CI 2.77/1.46, SVR 1648
Echo 10/19/23: [facility] study, EF 50-55%, mod LVH, sev
Echo 10/31/24: [facility] study, EF 25-30%, grade 3 diastolic dysfunction, sev peak/mean 48.4/30.9 mmHg and BAUDILIO 0.28 cm sq
Echo 11/01/24: Normal left ventricular size with severely reduced left ventricular systolic function with regional variations, EF estimated 20%. Mild mitral regurgitation. Mild to moderate tricuspid regurgitation. Severe calcific trileaflet aortic
stenosis with mild aortic regurgitation. Although there is some variability of aortic valve gradients and atrial fibrillation, peak aortic valve velocity 416 cm/s with peak/mean gradients 69/44 mmHg. Aortic valve area estimated 0.4-0.5 cm�.
Stroke-volume index 20 cc/m�. DI 0.2 no pericardial effusion. Estimated pulmonary artery systolic pressure 64 mmHg using an estimate right atrial pressure of 10 mmHg
Plan:
Cardiogenic shock with hypoxic respiratory failure/ acute heart failure with reduced ejection fraction and severe aortic stenosis and non-STEMI with increasing leukocytosis secondary to aspiration pneumonia
-Left/right heart catheterization previously reviewed with Dr. Roldan Cheek. Diffuse three-vessel disease, report pending with no clear ACS culprit or PCI options. Dr. Cheek discussed case with Dr. Wero Yang, CT surgery; not a candidate for
CABG/AVR.
-Right heart catheterization with RA pressure 14, wedge 32, PA pressure 55/36 with a mean of 43, PA sat 38.6%, AO sat 85%. Cardiac output/cardiac index 2.77/1.46. PVR 3.25, SVR 1648.
-Chest x-ray 10/31 with moderate heart failure possible right upper lobe pneumonia. Repeat chest x-ray after Dobbhoff placement and PICC line placement with bilateral enteral additional type pneumonia or pulmonary edema and minimal bilateral pleural
effusions.
-Overnight relatively uneventful and remained stable acute hypoxic respiratory decompensation the morning of 11/04/2024
-Summary: Acute respiratory decompensation the morning of 11/04/2024 with with sats 87 to 88% despite increasing mid flow O2 placed on BiPAP at 15 L. Patient was given 80 mg of Lasix in 2 divided doses and a nebulizer. Tube feeds were temporarily
held.
-Chest x-ray shows diffuse interstitial opacification. Repeat lactic acid not elevated, By afternoon he was back on 6 L mid flow nasal cannula
-Weight this morning 164 pounds, good urine output, I's and O's -921 over the last 24 hours
-Continue milrinone ip for inotropic support
-Right heart catheterization placement of Omena-Devi catheter with Dr. Cheek today to reassess hemodynamics
-Telemetry remains atrial fibrillation with PVCs. 14 beat NSVT 11/03/2024
-Keep K greater than 4, mag greater than 2
-Continue IV heparin [outpatient Eliquis held]-will continue IV heparin with anticipation of right heart catheterization early next week
-Medications currently through Dobbhoff tube
-Aspirin 81 mg daily per tube
-No further lisinopril At this time status post 1 dose of 2.5 mg on 11/03/2024
-Outpatient pravastatin changed to atorvastatin 40 mg daily for LDL on admission 84 g/dL. Goal LDL less than 70 mg/dL.
Aspiration pneumonia
-Influenza/COVID-negative. Legionella negative. C. difficile negative. Sputum culture negative. Blood cultures no growth to date
-White count slightly increased today after events yesterday but remains afebrile with normal lactate
-Empiric antibiotics discussed with dining car waiter/waitress
-Appreciate speech therapy and will await reevaluation
-Dobbhoff placed 11/02/2024; tube feed nutrition per dining car waiter/waitress/hospitalist
-Failed video swallow today with recommendations to keep n.p.o. with small amounts of ice chips and continue tube feeds. Will need to discuss overall long-term plan
- Aspiration precautions
Acute on chronic renal insufficiency secondary to cardiogenic shock
- Creatinine has improved/stabilized back to baseline
- BUN/creatinine today 37/1.1., Potassium 3.8, sodium 141. Magnesium 2.1.
History of persistent atrial fibrillation currently with rapid rates
-Outpatient Eliquis discontinued at time of admission to [facility] currently on IV heparin
-Amiodarone through tube 200 mg 3 times daily
- TSH within normal limits
Severe aortic stenosis
-CT surgery is deemed patient not a candidate for CABG/AVR due to surgical risks. Unclear if he is a TAVR candidate at this time.
-Avoid hypotension
-Further discussion regarding options for aortic valve such as TAVR pending clinical improvement
Hypothyroidism on levothyroxine
CODE STATUS discussed with patient at bedside 11/01 and again this morning; he confirmed he wishes DNR/DNI
HPI: 84 y/o, severe presented with acute on chronic heart failure with hypoxic respiratory failure and pulmonary edema as well as rapid AFib. Treated with IV diuresis as well as BiPap support, IV diltiazem and heparin.
Workup revealed elevated HS troponin 4125, CK/MB 1438/162 peaks. Echo with new decreased systolic function with EF 25-30%, worsening , and apical lateral HK. Transferred to for R/LHC today. On arrival he was dyspneic at rest on 4LNC, SBP 90s.
Progress Note - Gripper Machine Operator
Subjective
Date of Service: November 05, 2024
Patient seen and examined prior to video swallow. Overnight uneventful night. Remains on nasal cannula at 6 L, able to lie flat. No chest pain or pressure.
Objective
Labs:
11/05/24 04:26
11/05/24 04:26
Labs
Hgb 13.3 g/dL (13.0-18.0) 11/05/24 04:26
Hct 39.8 % (39.0-52.0) 11/05/24 04:26
Plt Count 228 10^3/uL (130-400) 11/05/24 04:26
APTT 148.9 Sec (23.4-35.0) H 11/05/24 04:26
Sodium 141 mmol/L (135-145) 11/05/24 04:26
Potassium 3.8 mmol/L (3.5-5.1) 11/05/24 04:26
BUN 37 mg/dl (9-20) H 11/05/24 04:26
Creatinine 1.1 mg/dL (0.7-1.3) 11/05/24 04:26
Glucose 132 mg/dl (70-99) H 11/05/24 04:26
Vital Signs and I&O:
Vital Signs
Temp Pulse Resp BP Pulse Ox
97.5 F 100 20 96/83 96
11/05/24 08:00 11/05/24 08:00 11/05/24 08:00 11/05/24 08:00 11/05/24 09:09
Vital Signs
Temp Pulse Resp BP Pulse Ox
97.5 F 100 20 96/83 96
11/05/24 08:00 11/05/24 08:00 11/05/24 08:00 11/05/24 08:00 11/05/24 09:09
Intake & Output
11/03/24 11/04/24 11/05/24 11/06/24
06:59 06:59 06:59 06:59
Intake Total 2055.3 / 2152.7 3577.0 / 3610.4 2285.1 / 2292.0 28.3 / 28.3
Output Total 3900 / 3900 1845 / 1945 3240 / 3415 325 / 325
Balance -1844.7 / -1747.3 1732.0 / 1665.4 -954.9 / -1123.0 -296.7 / -296.7
Physical Exam
Physical Exam
General: NAD, AOA x 3. Nasal cannula O2, Dobbhoff present
Heart: Irregularly irregular. Tachycardic Positive S1-S2. 3/6 SM.
Lungs: Bronchovesicular breath sounds with coarse rhonchi and bibasilar crackles
Abd: Nontender, nondistended. Positive bowel sounds
Ext: No edema, distal extremities warm. Radial cath site intact
Neuro: nonfocal
: García catheter clear urine
[2024-11-05 11:57] LABS: Glucose - Point of Care 167 mg/dl (70-99)
--- NOTE | 2024-11-05 12:01 | CM ---
Reviewed chart. Met with Mr. Dunn to review discharge plans. He states he id feeling okay and going for a cardiac cath today. Prior to admission he resies with his spouse in a one story home with one step to enter. Prior to admission he was
ambulating with a rolling walker and independent with adls. He has a rolling walker and single point cane at home. He has a prescription plan and uses [facility]. Will continue to follow his progress in therapy to see if he will have any
skilled care needs. Medical work-up in progress. The discharge plan is to return home with his spouse and [facility] verses [facility]. if indicated when medically stable.
--- NOTE | 2024-11-05 12:14 | PTCARENOTE ---
Assessment unchanged; A-fib on monitor and VSS; pt worked with PT and resting comfortably in chair awaiting RHC.
[2024-11-05 12:25] LABS: APTT 76.3 Sec (23.4-35.0)
--- NOTE | 2024-11-05 13:00 | PTOTSP ---
Videofluoroscopic swallow study
WFL oral, severe pharyngeal dysphagia with aspiration of all consistencies and decreased effectiveness of cough response. Etiology of dysphagia unknown. Patient with signs concerning for aspiration complications this admission (aspiration PNA).
Medical work up warranted as to etiology of dysphagia. Goals of care discussions are also appropriate.
Recommend:
1. NPO - continue non-oral means (DHT in place)
2. If opting for PO diet for comfort understanding aspiration risks consider L4 puree and Thin Liquids
3. Medications - non-oral
4. Aspiration Risk Hydration Protocol - ice chips after oral care; D/C if decline in respiratory status
5. Neurology consult given unknown etiology of dysphagia
6. Dysphagia tx at the acute care level for education, instruction in pharyngal swallow exercises
[2024-11-05] MEDS: HEPARIN 25000 UNITS/250 ML IV (14:07)
--- NOTE | 2024-11-05 16:32 | PTCARENOTE ---
Pt sent to cath lab nurse and bedside report given.
--- NOTE | 2024-11-05 16:50 | ITS.CL.CATH ---
School Librarian - Catheterization
Cardiac Catheterization
Procedure Report:
RIGHT HEART CATHETERIZATION
Date of Procedure: November 05, 2024
Referring: Dr. James Pérez
Indication: The patient is an 84-year-old man who presented with shortness of breath and borderline cardiogenic shock who underwent right and left heart catheterization last Tuesday. He has been on milrinone and getting diuresed in the CVICU. He
has subsequently failed a speech and swallowing study and chronic aspiration is suggested. He is referred for placement of a right IJ pulmonary artery catheter in an effort to guide diuresis and inotrope management.
ACCESS: The patient was prepped and draped in usual sterile fashion. A 8 Trinidadian sheath was then placed in the right internal jugular vein using ultrasound guidance and a micropuncture kit.
HEMODYNAMIC FINDINGS (mmHg):
RA(a,v,m): *, 13, 11 patient in atrial fibrillation
RV(s/d,EDP): 59/8, 14
PA(s/d/m): 66/43, 52
PCWP(a,v,m): *, 45, 37
Oxygen Saturations (mg/dl):
PA: 58% on 4 L of oxygen by nasal cannula
LV: 99% by pulse oximetry on 4 L of oxygen by nasal cannula
Cardiac Output/Index (l/min / l/min/m2):
Estimated Daren Method: 3.3 / 1.8
Fluoroscopy Time (min): 2.4
Radiation Dose (mGy): 16.7
DAP (Gy.cm2): 2.5
Closure device: None. The IJ introducer sheath was sutured in place and the pulmonary artery catheter was inserted at 58cm
Complications: None.
ASSESSMENT:
1: Severely elevated pulmonary pressures with elevated pulmonary capillary wedge pressure.
2: Reduced cardiac output/index but is improved on milrinone compared to prior study performed last Tuesday with the PA sat increasing from 39 to 58%
CONCLUSIONS and RECOMMENDATIONS:
1: Continue inotropic support with aggressive IV diuresis.
2: Will discuss with CVICU staff and Dr. Stanford
Santana Cheek M.D.
--- NOTE | 2024-11-05 16:56 | CON.NEURO ---
Neuro Assessment/Plan
Assessment
severe dysphagia probably due to Parkinson's disease - may or may not respond to Sinemet.
Afib on anticoagulation
HFrEF
Plan
Start Sinemet 25/100 TID by tube - may or
Consultation
Order
Date of Consultation: 11/05/24
Requesting Provider: Francesco Miller
Reason for Consult: dysphagia
Subjective/Objective
Subjective Data
Date of Service: November 05, 2024
84 y/o male past medical history of paroxysmal atrial fibrillation, hypertension, hyperlipidemia and hypothyroidism, transferred from [facility] for cardiac catheterization. found to have respiratory failure due to acute heart failure with
reduced EF, cardiogenic shock, severe aortic stenosis. neurology consulted after video swallow showed severe dysphagia to all consistency, patient NPO.
patient reports problems swallowing x several weeks. in the past 2 years, he reports soft voice, gait changes, shuffling a little when he walks. no tremor.
Objective Data
Vital Signs
Temp Pulse Resp BP Pulse Ox
36.6 C 107 20 109/87 96
11/05/24 11:55 11/05/24 15:00 11/05/24 11:55 11/05/24 14:13 11/05/24 12:03
Lab Results
11/05/24 04:26
11/05/24 04:26
APTT 76.3 Sec (23.4-35.0) H 11/05/24 12:04
Sodium 141 mmol/L (135-145) 11/05/24 04:26
Potassium 3.8 mmol/L (3.5-5.1) 11/05/24 04:26
BUN 37 mg/dl (9-20) H 11/05/24 04:26
Glucose 132 mg/dl (70-99) H 11/05/24 04:26
Calcium 8.5 mg/dl (8.4-10.2) 11/05/24 04:26
Phosphorus 3.7 mg/dl (2.5-4.5) 11/01/24 14:23
LDL Cholesterol, Calc 84 mg/dl 11/01/24 04:05
Patient Allergies
No Known Allergies Allergy (Verified 10/31/24 12:41)
Physical Exam
-
AAOx3, speech clear, language intact
VFF, EOMI, masked fascies
full strength b/l UE/LE
+bradykinesia, +cogwheel rigidity, no tremor
Medications
-
Active Medications
Generic Name Dose Route Start Last Admin
Trade Name Freq PRN Reason Stop Dose Admin
Albuterol/Ipratropium 3 ml 11/01/24 04:24 11/04/24 07:09
Ipratropium 0.5/Albuterol 3 Mg (3 Ml Ampul) INH 3 ml
R Q4HPRN PRN Administration
sob
Protocol
Amiodarone HCl 200 mg 11/02/24 22:00 11/05/24 08:21
Amiodarone 200 Mg Tablet TUBE 11/30/24 21:59 200 mg
TID BECKIE Administration
Aspirin 81 mg 11/03/24 08:00 11/05/24 08:21
Aspirin 81 Mg Chewable Tablet TUBE 12/01/24 07:59 81 mg
DAILY BECKIE Administration
Atorvastatin Calcium 40 mg 11/03/24 18:00 11/04/24 16:10
Atorvastatin (Lipitor) 40 Mg Tablet PO 12/01/24 17:59 40 mg
QPM BECKIE Administration
Carbidopa/Levodopa 1 tablet 11/05/24 16:00
Carbidopa (25 Mg)/Levodopa (100 Mg) Regular Release Tablet TUBE 12/03/24 15:59
TID BECKIE
Dextrose 12.5 grams 10/31/24 14:46
Dextrose 50% (0.5 Grams/Ml) 50 Ml Syringe IV 11/28/24 14:45
[id number] PRN
hypoglycemia
Protocol
Furosemide 40 mg 11/04/24 12:00 11/05/24 11:54
Furosemide 40 Mg (10 Mg/Ml) 4 Ml Vial IV 12/02/24 11:59 40 mg
Q6H BECKIE Administration
Glucagon 1 mg 10/31/24 14:46
Glucagon 1 Mg Vial IM 11/28/24 14:45
PRN PRN
hypoglycemia
Protocol
Heparin Sodium 25,000 units in 250 mls @ 0 mls/hr 10/31/24 17:00 11/05/24 14:07
Heparin 83401 Units/250 Ml IV 250 mls
PER PROTOCOL BECKIE Administration
Protocol
Per Protocol
Milrinone Lactate/Dextrose 20 mg in 100 mls @ 0 mls/hr 11/01/24 10:30 11/05/24 05:50
Primacor 20 Mg IV 100 mls
PER PROTOCOL BECKIE Administration
Protocol
Per Protocol
Ampicillin Sodium/Sulbactam 120 mls @ 240 mls/hr 11/01/24 12:00 11/05/24 11:54
Sodium 3 gm/ Sodium Chloride IV 11/08/24 06:29 120 mls
Q6H BECKIE Administration
Insulin Aspart 0 units 11/01/24 18:00 11/05/24 11:54
Insulin Aspart Low Resistance 300 Units/3 Ml Pen.Injctr SC 11/29/24 17:59 1 units
Q6 BECKIE Administration
Protocol
Levothyroxine Sodium 75 mcg 11/03/24 06:00 11/05/24 05:49
Levothyroxine 75 Mcg Tablet TUBE 12/01/24 05:59 75 mcg
DAILY @ 0600 BECKIE Administration
Pantoprazole Sodium 40 mg 11/01/24 15:00 11/05/24 08:21
Pantoprazole Sodium 40 Mg/10 Ml Vial IV 11/29/24 14:59 40 mg
DAILY BECKIE Administration
Sodium Chloride 0 flush 10/31/24 23:00
Sodium Chloride 0.9% (Flush) Syringe IV 11/28/24 22:59
PER PROTOCOL BECKIE
Sodium Chloride 10 ml 11/01/24 15:00 11/05/24 08:21
Sodium Chloride 0.9% (Preservative Free) 10 Ml Vial IV 11/29/24 14:59 10 ml
DAILY BECKIE Administration
Home Medications
�Medication �Instructions �Recorded
allopurinol 100 mg tablet 100 mg PO BID Gout 10/31/24
amlodipine 5 mg tablet 5 mg PO BID Blood Pressure 10/31/24
apixaban 5 mg tablet 5 mg PO BID Blood Clot 10/31/24
Prevention/Tx
levothyroxine 75 mcg tablet 75 mcg PO DAILY Thyroid 10/31/24
lisinopril 10 mg tablet 10 mg PO DAILY Blood Pressure 10/31/24
metoprolol tartrate 50 mg tablet 50 mg PO BID Blood Pressure 10/31/24
multivitamin with iron-mineral 1 tab PO DAILY Supplement 10/31/24
omega-3 fatty acids 1,000 mg PO BID Supplement 10/31/24
omeprazole 20 mg capsule,delayed 20 mg PO DAILY Gastrointestinal 10/31/24
release Issue
pravastatin 40 mg tablet 40 mg PO DAILY High Cholesterol 10/31/24
[2024-11-05] MEDS: LIPITOR 40 MG PO (18:09)
[2024-11-05] MEDS: SINEMET 25-100 1 TABLET TUBE ×2 (18:09→22:32)
[2024-11-05] MEDS: NOVOLOG FLEXPEN-LOW RESISTANCE SC ×2 (18:29→23:49)
[2024-11-05 18:30] LABS: Glucose - Point of Care 104 mg/dl (70-99)
--- NOTE | 2024-11-05 18:30 | PTCARENOTE ---
Pt returned form electroplating laborer at 1740; A-fib on monitor and VSS; RIBala Martinez, and Jelani floated to 58; Tube feedings resumed; family at bedside and updated.
--- NOTE | 2024-11-05 18:31 | W.PN.INTV ---
Today's Communication / Plan
Recommendations
- Diurese as tolerated, monitor renal function and potassium
- Wean oxygen as tolerated, continue Unasyn up until 11/08
- Keep head and raised, high aspiration risk
Assessment
-
Assessment: 84-year-old male with a past medical history of aortic stenosis, A-fib on Eliquis, hyperlipidemia and CKD who presented to [facility] after syncopal event. EKG showed A-fib with RVR with concerning EKG changes with inferior and
anterolateral ST depressions with lateral T wave inversions. CXR also showed interstitial pulmonary edema. He was transferred here to [place] for cardiac catheterization. Patient was hypotensive with concern for cardiogenic shock.
Jitterbug Operator/pulmonary service now consulted for additional management/recommendations.
Chronic medical conditions: Severe , CHF, permanent A-fib on Eliquis, gout, HTN, CKD IIIa, hypothyroidism, GERD, sciatica
#1. Pulmonary edema with acute on suspect chronic HFrEF with cardiogenic shock
-Right heart cath, 11/05, pulmonary capillary wedge pressure significantly elevated at 37
- Currently on Lasix 40 mg IV every 6 hours along with milrinone infusion
#2. Acute hypoxic respiratory failure, due to #1
- Improving with ongoing diuresis
#3. Pulmonary HTN, severe
- Group II with elevated PCWP
- Continue diuresis as tolerated
#4. h/o A fib with RVR
- Currently on amiodarone p.o. and heparin infusion
#5. Severe Aortic stenosis
- Likely the etiology of syncope and contributing to decompensated heart failure as well as pulmonary hypertension
#6. Dysphagia with high aspiration risk
- Concern for aspiration pneumonia, currently on Unasyn, continue treatment until 11/08.
- WBC count overall improving, afebrile.
#7. Elevated troponin likely due to NSTEMI.
-Severe diffuse CAD involving LAD, diagonal branches + RCA
- Currently on aspirin and heparin drip along with atorvastatin.
#8. VERENICE due to cardiorenal syndrome in the setting of CKD
- Creatinine improving with diuresis, 1.1 today.
Other medical issues
# Suspected Parkinsonism
#Former tobacco smoker (20-PY Hx - quit 1995)
#Gout
#Hypothyroidism
#Sciatica
Pulmonary services will continue to briefly follow along.
Critical care statement: A total of 48 minutes of critical care time was provided for this patient today. This includes management of unstable vital signs, evaluation of the patient at bedside, reviewing the patient's pertinent medical records
including radiographs, microbiology, laboratory evaluations, and discussion with primary team, consultants, pharmacy, nutrition, physical therapy, case management, charge nurse, critical care nursing, and respiratory therapy.
Data:
Video fluoro exam: 10/2024: Aspiration noted
ECHO 10/2024: Normal left ventricular size with severely reduced left ventricular systolic
function with regional variation
Left ventricular ejection fraction is visually estimated 20%
Mild left ventricular hypertrophy
Normal RV size and systolic function
Left atrial dilatation
Mild mitral regurgitation
Trileaflet calcific aortic valve with severe aortic stenosis and mild aortic
regurgitation. Peak aortic valve velocity 416 cm/s. Peak/mean gradients across
the aortic valve of 69/44 mmHg, respectively. The aortic valve by the
Continuity equation is calculated at 0.4-0.5 cm sq., using a LVOT diameter of
1.9 cm. Stroke-volume index 20 cc/m2.
Mild to moderate tricuspid regurgitation
Estimated pulmonary artery pressure of 64mmHg assuming a right atrial pressure
of 10 mmHg.
No pericardial effusion
No prior available for comparison
[facility] 10/2024: 1: Severe diffuse small vessel disease with what appears to be obstructive disease in the LAD, diagonal branches, and RCA. Given the diffuse pattern of this disease I do not feel that there are any reasonable PCI options. There
certainly does not seem to be evidence for acute coronary syndrome.
2: Cardiogenic shock with very low cardiac output/index. Patient was given IV Lasix 80 mg on the table and appears to be diuresing. He has not required pressors and does appear to be oxygenating better on nasal cannula.
3: Severe aortic stenosis.
C 10/2024: ASSESSMENT:
1: Severely elevated pulmonary pressures with elevated pulmonary capillary wedge pressure.
2: Reduced cardiac output/index but is improved on milrinone compared to prior study performed last Tuesday with the PA sat increasing from 39 to 58%
CXR 11/01/2024:
Moderate CHF. Suspect superimposed right upper lobe pneumonia.
Cannot rule out component of underlying chronic interstitial lung disease.
Subjective Dataa
Subjective Data
Date of Service:
Date of Service: November 05, 2024
Chief Complaint: Jitterbug Operator Follow Up
Subjective:
Patient comfortably lying in bed, in no acute distress.
Review of Systems
Genitourinary: Other (No new symptoms reported)
Objective Data
Data Reviewed
Vital Signs / I&O / Oxygen:
Vital Signs
Temp Pulse Resp BP Pulse Ox
97.8 F 107 20 109/87 96
11/05/24 11:55 11/05/24 15:00 11/05/24 11:55 11/05/24 14:13 11/05/24 12:03
Intake and Output
11/04/24 11/05/24 11/06/24
06:59 06:59 06:59
Intake Total 3577.0 / 3610.4 2285.1 / 2292.0 255.3 / 255.3
Output Total 1844 / 5 3240 / 3415 840 / 840
Balance 1732.0 / 1665.4 -954.9 / -1123.0 -584.7 / -584.7
SaO2 96
Nasal Cannula flow liters per 6
minute
Physical Exam
General: Respiratory Distress (negative), Comfortable, Chills (negative), Sweats (negative) and Other (Elderly male in no acute distress)
HEENT: Normocephalic and Anicteric
Cardiovascular: Peripheral Edema (negative) and Other (Tachycardic)
Respiratory: Wheeze (negative), Rhonchi (negative), Non-Labored Respirations and Other (Coarse breath sounds heard bilaterally)
GI: Soft, Non Distended, Non Tender and Normal Bowel Sounds
Neurology: Awake, Alert and Tremors (negative)
Skin: Warm, Dry, Cyanosis (negative) and Jaundice (negative)
Labs/Micro/Reports
Lab Data
11/05/24 04:26
11/05/24 04:26
Laboratory Results
11/05/24 11/05/24
12:04
APTT 148.9 H 76.3 H
Microbiology
11/01/24 10:53 Blood/Venous Blood Culture - Preliminary
No Growth in 4 days- Final report to follow
11/01/24 09:23 Blood/Venous Blood Culture - Preliminary
No Growth in 4 days- Final report to follow
11/04/24 08:52 Feces/Stool C. difficile GDH Antigen & Toxins - Final
Negative for toxigenic C.difficile
[2024-11-05 18:48] LABS: APTT 78.8 Sec (23.4-35.0)
--- NOTE | 2024-11-05 19:20 | PTCARENOTE ---
Patient received from RN @ 1900. Patient lying comfortably in bed w/ call santiago in reach. AOx3 but drowsy. A. Fib BP 110/80 HR 101. Pulses present. No edema noted. Lungs clear but diminished in bases. POX 95% 6L midflow NC. Bowel sounds
normoactive. NPO w/ tube feeds through Dobbhoff in left nare. García draining clear yellow urine. RIJ cordis w/ swan @58 PAP 46/23 CVP 6 CI 1.73. Lines zeroed and leveled. Left PIV patent and intact. Right triple lumen PICC patent and intact w/
Milrinone and Heparin infusing. See Worklist for details.
[2024-11-05 22:04] LABS: Blood Urea Nitrogen 41 mg/dl (9-20); Calcium 8.8 mg/dl (8.4-10.2); Carbon Dioxide 30 mmol/L (22-30); Chloride 103 mmol/L (98-107); Estimated Creatinine Clearance 40 ml/min; Glucose 175 mg/dl (70-99); Magnesium 2.2 mg/dl (1.6-2.3); Potassium 3.9 mmol/L (3.5-5.1); Sodium 137 mmol/L (135-145); eGFR 54.51
[2024-11-05] MEDS: KCL 50 IV (22:44)
[2024-11-05 23:49] LABS: Glucose - Point of Care 121 mg/dl (70-99)
[2024-11-06] VITALS (33 sets, daily range): BP systolic 90–147; BP diastolic 65–122; BMI 25.7
--- NOTE | 2024-11-06 | PTCARENOTE ---
Patient reassessed. Productive cough noted. A. Fib. BP 111/84 HR 90 PAP 70/38 CVP 9 POX 96% 6L midflow NC. Labs drawn and KCL repleted per CT PA Ed, see MAR for details.
[2024-11-06 04:25] LABS: Mixed Venous O2 Saturation 59.6 %
--- NOTE | 2024-11-06 04:30 | PTCARENOTE ---
Patient reassessed. A. Fib. BP 104/84 HR 109 PAP 70/34 CVP 9 CI 1.90. Labs drawn
[2024-11-06 04:43] LABS: Hematocrit 39.3 % (39.0-52.0); Hemoglobin 13.1 g/dL (13.0-18.0); Mean Corp Hgb Conc. 33.3 g/dL (33.0-37.0); Mean Corpuscular Hgb 28.9 pg (27.0-31.0); Mean Corpuscular Volume 86.6 fL (80.0-94.0); Mean Platelet Volume 11.4 fL (7.4-10.4); Platelet Count 215 10^3/uL (130-400); Red Blood Cell Count 4.54 10^6/uL (4.70-6.10); Red Cell Dist. Width 14.4 % (11.5-14.5); White Blood Cell Count 12.7 10^3/uL (4.8-10.8)
[2024-11-06 04:57] LABS: APTT 87.8 Sec (23.4-35.0)
[2024-11-06 05:33] LABS: Blood Urea Nitrogen 40 mg/dl (9-20); Carbon Dioxide 29 mmol/L (22-30); Chloride 103 mmol/L (98-107); Estimated Creatinine Clearance 40 ml/min; Glucose 157 mg/dl (70-99); Magnesium 2.2 mg/dl (1.6-2.3); Potassium 4.4 mmol/L (3.5-5.1); Sodium 139 mmol/L (135-145); eGFR 54.51
[2024-11-06] MEDS: PRIMACOR 20 MG 100 IV ×2 (05:46→17:34)
[2024-11-06] MEDS: HEPARIN 25000 UNITS/250 ML IV ×2 (05:52→21:19)
[2024-11-06 05:58] LABS: Glucose - Point of Care 148 mg/dl (70-99)
[2024-11-06] MEDS: NOVOLOG FLEXPEN-LOW RESISTANCE SC ×2 (05:58→12:00)
[2024-11-06] MEDS: UNASYN IV ×3 (05:59→18:30)
[2024-11-06] MEDS: LASIX 40 MG IV ×3 (06:00→17:35)
[2024-11-06] MEDS: SYNTHROID 75 MCG TUBE (06:05)
--- NOTE | 2024-11-06 07:33 | W.PN.CARDCBS ---
Addendum entered and electronically signed by Luis Mejias MD 11/06/24 10:39:
I saw and examined the patient.
The AUTO BODY STRAIGHTENER or PA's note was reviewed and I agree with the note.
Comment: General: Well developed, well nourished in NAD.
Neck: Supple, no JVD, HJR, carotids +2 B/L, no bruits bilaterally.
Heart: Non displaced PMI, irregular, no murmurs, No S3, S4, no rubs.
Lungs: Scattered rhonchi
Extremities: No clubbing, cyanosis or edema bilaterally.
Neuro: Grossly nonfocal, awake, alert and oriented x3.
Remains volume overloaded based on right heart catheterization on 11/05/2024. Continue milrinone and continue IV Lasix. Continue IV heparin for A-fib. Discussed with daughter at bedside as well as nursing. Ultimately could consider for TAVR but
also has issue with aspiration including a feeding tube. Hopefully eventually milrinone can be weaned off as oxygenation improves. Chest x-ray reveals that [place] tip may be too far out may need to pull catheter back
Original Note:
Today's Communication / Plan
-
continue milrinone
continue IV lasix
GI eval for aspiration
IV heparin
po amio. repeat EKG today to reassess QTc
Impression / Plan
-
PCP: Laura Cm MD
CDY: Jose Luis Mehta MD
IMPRESSION:
Transferred from [facility] to [facility] 10/31/24
Admitted with [facility] with weakness, syncope
Persistent Afib
Afib with RVR on admission to [facility]
Lactic acidosis
Cardiogenic shock
Acute on Chronic HFrEF
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
Acute cardiogenic pulmonary edema
Acute hypoxic respiratory failure
NSTEMI
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
Syncope
Severe peak/mean 48/31 and BAUDILIO 0.28 cm sq by echo at [facility] 10/31/24
VERENICE on CKD3a
HTN
HLD
Hypothyroid
GERD
Thrombophilia
Gout
R/[facility] 10/31/24: multivessel CAD details unknown, PCWP 32, PA 55/36, CO/CI 2.77/1.46, SVR 1648
Echo 10/19/23: [facility] study, EF 50-55%, mod LVH, sev
Echo 10/31/24: [facility] study, EF 25-30%, grade 3 diastolic dysfunction, sev peak/mean 48.4/30.9 mmHg and BAUDILIO 0.28 cm sq
Echo 11/01/24: Normal left ventricular size with severely reduced left ventricular systolic function with regional variations, EF estimated 20%. Mild mitral regurgitation. Mild to moderate tricuspid regurgitation. Severe calcific trileaflet aortic
stenosis with mild aortic regurgitation. Although there is some variability of aortic valve gradients and atrial fibrillation, peak aortic valve velocity 416 cm/s with peak/mean gradients 69/44 mmHg. Aortic valve area estimated 0.4-0.5 cm�.
Stroke-volume index 20 cc/m�. DI 0.2 no pericardial effusion. Estimated pulmonary artery systolic pressure 64 mmHg using an estimate right atrial pressure of 10 mmHg
Plan:
-Patient presented to [place] with syncopal episode, shortness of breath and rapid A-fib 10/30/2024. was transferred to [facility] 10/31/24 with acute heart failure, EF 25 to 30% and concern for cardiogenic shock. He ruled in for NSTEMI and LHC showed 3
vessel disease with no clear ACS culprit or PCI options. also with severe . was not felt to be candidate for CABG/AVR
-underwent RHC 11/05 with wedge 37 and CI 1.8, was previously with wedge of 32 and CI 1.46 with SVR 1648 by RHC at [facility].
-continue IV milrinone, renewed by me
-wean supp O2. continue IV lasix 40mg Q6H. with layton in place. Cr stable at 1.3
-holding off on BB while on milrinone. received 1 dose of lisinopril 2.5mg on 11/03 however stopped. eventual GDMT as able for ICM
-remains in afib with HRs adequately controlled. continue amiodarone 200mg TID started this admission. QTc ok by EKG 11/03, repeat today
-was on eliquis as OP. currently on IV heparin, renewed by me
-also with aspiration and is NPO with dobhoff in place. continue abx and tube feeds. GI to evaluate patient. neurology feels possibly Parkinson's as etiology, which would be new diagnosis for patient.
-will need to discuss urgency of TAVR eval given syncopal episode on presentation to [facility]
-DNR/DNI code status
-d/w nursing
-d/w patient and family at bedside
HPI: 84 y/o, severe presented with acute on chronic heart failure with hypoxic respiratory failure and pulmonary edema as well as rapid AFib. Treated with IV diuresis as well as BiPap support, IV diltiazem and heparin.
Workup revealed elevated HS troponin 4125, CK/MB 1438/162 peaks. Echo with new decreased systolic function with EF 25-30%, worsening , and apical lateral HK. Transferred to for R/LHC today. On arrival he was dyspneic at rest on 4LNC, SBP 90s.
Progress Note - Audiovisual Technician
Subjective
Date of Service: November 06, 2024
no CP, palpitations. reports is tired
Objective
Labs:
11/06/24 04:15
11/06/24 04:15
Labs
Hgb 13.1 g/dL (13.0-18.0) 11/06/24 04:15
Hct 39.3 % (39.0-52.0) 11/06/24 04:15
Plt Count 215 10^3/uL (130-400) 11/06/24 04:15
APTT 87.8 Sec (23.4-35.0) H 11/06/24 04:15
Sodium 139 mmol/L (135-145) 11/06/24 04:15
Potassium 4.4 mmol/L (3.5-5.1) 11/06/24 04:15
BUN 40 mg/dl (9-20) H 11/06/24 04:15
Creatinine 1.3 mg/dL (0.7-1.3) 11/06/24 04:15
Glucose 157 mg/dl (70-99) H 11/06/24 04:15
Vital Signs and I&O:
Vital Signs
Temp Pulse Resp BP Pulse Ox
99.1 F 103 28 115/81 96
11/06/24 07:00 11/06/24 07:00 11/06/24 07:00 11/06/24 07:00 11/06/24 07:00
Vital Signs
Temp Pulse Resp BP Pulse Ox
99.1 F 103 28 115/81 96
11/06/24 07:00 11/06/24 07:00 11/06/24 07:00 11/06/24 07:00 11/06/24 07:00
Intake & Output
11/03/24 11/04/24 11/05/24 11/06/24
07:59 07:59 07:59 07:59
Intake Total 2114.6 / 2482.0 3513.0 / 3546.4 2258.6 / 2280.0 1738.0 / 1738.0
Output Total 3550 / 3775 1945 / 2120 3315 / 3465 2895 / 2895
Balance -1435.4 / -1293.0 1568.0 / 1426.4 -1056.4 / -1185.0 -1157.0 / -1157.0
Physical Exam
Physical Exam
GEN: No distress, awake, alert, oriented x3. on supp O2. dobhoff in place
HEENT: supple, anicteric, mmm, eomi
LUNGS: CTA B/L, no wheezes/rales
CV: Irreg, S1/S2, 2/6 syst LSB
ABD: soft, BS+, NT/ND
EXT: No cyanosis, clubbing, edema
NEURO: Gross non-focal
SKIN: Warm, pink, dry. No rash
[2024-11-06] MEDS: SINEMET 25-100 1 TABLET TUBE ×3 (07:38→21:19)
[2024-11-06] MEDS: LOW STRENGTH ASPIRIN 81 MG TUBE (07:38)
[2024-11-06] MEDS: PACERONE 200 MG TUBE ×3 (07:38→21:19)
[2024-11-06] MEDS: PROTONIX IV 40 MG IV (07:38)
[2024-11-06] MEDS: NSS (PRESERVATIVE FREE) 10 ML IV (07:39)
--- NOTE | 2024-11-06 07:49 | W.PN.INTV ---
Today's Communication / Plan
Recommendations
- Monitor renal function with diuresis
- Out of bed as tolerated, increase activity as tolerated
- Wean mid flow to keep saturation above 90%
Assessment
-
Assessment: 84-year-old male with a past medical history of aortic stenosis, A-fib on Eliquis, hyperlipidemia and CKD who presented to [facility] after syncopal event. EKG showed A-fib with RVR with concerning EKG changes with inferior and
anterolateral ST depressions with lateral T wave inversions. CXR also showed interstitial pulmonary edema. He was transferred here to [place] for cardiac catheterization. Patient was hypotensive with concern for cardiogenic shock.
Customer Complaint Service Supervisor/pulmonary service now consulted for additional management/recommendations.
Chronic medical conditions: Severe , CHF, permanent A-fib on Eliquis, gout, HTN, CKD IIIa, hypothyroidism, GERD, sciatica
#1. Pulmonary edema with acute on suspect chronic HFrEF with cardiogenic shock
-Right heart cath, 11/05, pulmonary capillary wedge pressure significantly elevated at 37
- Currently on Lasix 40 mg IV every 6 hours along with milrinone infusion, -1.1 L overnight, diuresed well
#2. Acute hypoxic respiratory failure, due to #1
- Improving with ongoing diuresis
- No orthopnea, saturating 96% on mid flow
#3. Pulmonary HTN, severe
- Group II with elevated PCWP
- Continue diuresis as tolerated
#4. h/o A fib with RVR
- Currently on amiodarone p.o. and heparin infusion
#5. Severe Aortic stenosis
- Likely the etiology of syncope and contributing to decompensated heart failure as well as pulmonary hypertension
#6. Dysphagia with high aspiration risk
- Concern for aspiration pneumonia, currently on Unasyn, continue treatment until 11/08.
- WBC count overall improving, afebrile.
#7. Elevated troponin likely due to NSTEMI.
- Severe diffuse CAD involving LAD, diagonal branches + RCA
- Currently on aspirin and heparin drip along with atorvastatin.
#8. VERENICE due to cardiorenal syndrome in the setting of CKD
- Creatinine @ 1.3 today
Other medical issues
#Suspected Parkinsonism
#Former tobacco smoker (20-PY Hx - quit 1995)
#Gout
#Hypothyroidism
#Sciatica
Pulmonary services will continue to briefly follow along.
Critical care statement: A total of 42 minutes of critical care time was provided for this patient today. This includes management of unstable vital signs, evaluation of the patient at bedside, reviewing the patient's pertinent medical records
including radiographs, microbiology, laboratory evaluations, and discussion with primary team, consultants, pharmacy, nutrition, physical therapy, case management, charge nurse, critical care nursing, and respiratory therapy.
Data:
Video fluoro exam: 10/2024: Aspiration noted
ECHO 10/2024: Normal left ventricular size with severely reduced left ventricular systolic
function with regional variation
Left ventricular ejection fraction is visually estimated 20%
Mild left ventricular hypertrophy
Normal RV size and systolic function
Left atrial dilatation
Mild mitral regurgitation
Trileaflet calcific aortic valve with severe aortic stenosis and mild aortic
regurgitation. Peak aortic valve velocity 416 cm/s. Peak/mean gradients across
the aortic valve of 69/44 mmHg, respectively. The aortic valve by the
Continuity equation is calculated at 0.4-0.5 cm sq., using a LVOT diameter of
1.9 cm. Stroke-volume index 20 cc/m2.
Mild to moderate tricuspid regurgitation
Estimated pulmonary artery pressure of 64mmHg assuming a right atrial pressure
of 10 mmHg.
No pericardial effusion
No prior available for comparison
[facility] 10/2024: 1: Severe diffuse small vessel disease with what appears to be obstructive disease in the LAD, diagonal branches, and RCA. Given the diffuse pattern of this disease I do not feel that there are any reasonable PCI options. There
certainly does not seem to be evidence for acute coronary syndrome.
2: Cardiogenic shock with very low cardiac output/index. Patient was given IV Lasix 80 mg on the table and appears to be diuresing. He has not required pressors and does appear to be oxygenating better on nasal cannula.
3: Severe aortic stenosis.
C 10/2024: ASSESSMENT:
1: Severely elevated pulmonary pressures with elevated pulmonary capillary wedge pressure.
2: Reduced cardiac output/index but is improved on milrinone compared to prior study performed last Tuesday with the PA sat increasing from 39 to 58%
CXR 11/01/2024:
Moderate CHF. Suspect superimposed right upper lobe pneumonia.
Cannot rule out component of underlying chronic interstitial lung disease.
Subjective Dataa
Subjective Data
Date of Service:
Date of Service: November 06, 2024
Chief Complaint: Customer Complaint Service Supervisor Follow Up
Subjective:
Patient lying down in bed in no acute distress.
Review of Systems
Genitourinary: Other (All 14 systems reviewed and negative except as stated above in the history of present illness.)
Objective Data
Data Reviewed
Vital Signs / I&O / Oxygen:
Vital Signs
Temp Pulse Resp BP Pulse Ox
99.1 F 109 28 115/81 96
11/06/24 07:00 11/06/24 07:38 11/06/24 07:00 11/06/24 07:38 11/06/24 07:00
Intake and Output
11/05/24 11/06/24 11/07/24
06:59 06:59 06:59
Intake Total 2285.1 / 2292.0 1713.5 / 1744.9 31.4 / 31.4
Output Total 3240 / 3415 2800 / 3070 270 / 270
Balance -954.9 / -1123.0 -1086.5 / -1325.1 -238.6 / -238.6
SaO2 96
Nasal Cannula flow liters per 6
minute
Physical Exam
General: Respiratory Distress (negative), Comfortable, Chills (negative), Sweats (negative) and Other (Elderly male in no acute distress)
HEENT: Normocephalic and Anicteric
Cardiovascular: Peripheral Edema (negative) and Other (Tachycardic)
Respiratory: Wheeze (negative), Crackles (Few basilar inspiratory crackles noted), Rhonchi (negative), Non-Labored Respirations and Other (Coarse breath sounds heard bilaterally)
GI: Soft, Non Distended, Non Tender and Normal Bowel Sounds
Neurology: Awake, Alert and Tremors (negative)
Skin: Warm, Dry, Cyanosis (negative) and Jaundice (negative)
Labs/Micro/Reports
Lab Data
11/06/24 04:15
11/06/24 04:15
Laboratory Results
11/05/24 11/05/24 11/06/24
12:04 18:14 04:15
APTT 76.3 H 78.8 H 87.8 H
Microbiology
11/01/24 10:53 Blood/Venous Blood Culture - Preliminary
No Growth in 4 days- Final report to follow
11/01/24 09:23 Blood/Venous Blood Culture - Preliminary
No Growth in 4 days- Final report to follow
11/04/24 08:52 Feces/Stool C. difficile GDH Antigen & Toxins - Final
Negative for toxigenic C.difficile
--- NOTE | 2024-11-06 08:00 | PTCARENOTE ---
Received patient and assumed care of patient at 0645. Assessment completed and documented under shift assessment on worklist.
Patient is pleasant, AAOX4. Forgetful at times, presently drowsy. Easily arousable. Follows commands appropriately. A-Fib on monitor, RIJ Cordis/[place] at 58, line zeroed and leveled. R Triple PICC patent, one lumen infusing Milrinone and Heparin
gtts. L FA 20 patent. Cordis infusing KVO patent. No edema, + pulses. Irregular apical pulse, no murmur detected. 6L Midflow, irregular tachypneic effort however does not report being short of breath. Occasional moist non productive cough, 96% SpO2.
NPO, L Nare DHT 65 cm infusing Jevity 1.5 at goal 60mL/hour, 25mL/hour FWF. LBM this AM. Round abdomen, + BS. García catheter draining straw/yellow urine. García care completed. R Groin Site CDI, R Wrist CONVENTION MANAGER CDI. Skin otherwise intact. Completed oral
care.
--- NOTE | 2024-11-06 08:48 | W.PN.HOSP.TC ---
Today's Communication/Plan
-
see bold
Assessment / Plan
Assessment / Plan
HPI: 84 y/o male past medical history of paroxysmal atrial fibrillation, hypertension, hyperlipidemia and hypothyroidism who was transferred from [facility] today for urgent cardiac catheterization. Patient initially presented to [place] [facility] last evening. He was admitted to the hospital after he had a syncopal, and was found to be hypoxic as well as in A-Fib with RVR. Overnight his troponin tended up significantly and he was transferred to [facility] for cardiac
catheterization.
Acute Hypoxic Respiratory Failure secondary to Acute Heart Failure with reduced EF and cardiogenic shock with known severe aortic stenosis
-S/p 10/31 cardiac cath with evidence of multivessel disease
-EF 20% with severe
-Apprec cards/CT surg--not surgical candidate-medical management
-Pt needed to go back on BiPAP with 15L O2 due to acute resp distress and dropping sats 11/04/24 likely from decreased lasix--cards aware and restarted more lasix
-Currently requiring 6 L of oxygen today
-Status post right heart cath 11/05, continue milrinone and IV Lasix
-Continue IV heparin (likely with conversion back to Eliquis) once able to take PO
-For possible future TAVR once clinically stabilized
Permanent Atrial Fibrillation with RVR noted
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
-S/p digoxin per card, s/p coreg x1 dose
-S/p amio drip, continue on amio PO through Dobhoff
NSTEMI
Multivessel CAD
-s/p cardiac cath with evidence of multivessel disease
-apprec CT surg--not surgical candidate
VERENICE on CKD IIIA
-creat 1.6 -resolved; baseline ~1.2
-layton for now with active diuresis--apprec renal/cards
Probable aspiration pneumonia
Leukocytosis
-CXR noted Moderate CHF
-Suspect superimposed right upper lobe pneumonia?
-WBC count now normal BUT pt having diarrhea on 11/04--likely from tube feeds
-COVID/Flu negative --procal positive--cont unasyn as per precision millwright/pulm
Severe dysphagia
-failed bedside fiberoptic swallowing eval
-dobhoff placed, continue tube feeds
-VSE w/ aspiration of all textures
-Appreciate neurology input, patient likely has dysphagia due to Parkinson's
-No GI consult needed at this point
-Patient started on Sinemet, monitor response
Parkinson's disease
-Appreciate neurology input
-Patient started on Sinemet, monitor response
Glucose intolerance
-HgbA1c 6.0%
-Continue diabetic diet
-Monitor sugars and continue coverage insulin
Essential Hypertension
-BP running on the low side
-Hold all blood pressure meds
Hyperlipidemia
-Changed pravastatin to Lipitor
Hypothyroidism
-TSH 2.76--Continue levothyroxine
Isolated elevation of AST
-cont to monitor
Left hip pain
- Likely from arthritis, denies trauma
- Monitor
DVT proph--Heparin drip
Code Status--listed as DNR
PT rec HH
Total time spent to see the patient on the floor, examine the patient, review data and lab results, discuss treatment plan with patient, nursing staff around 51 minutes
Updated daughter at bedside 11/06
Physical Exam
General: No acute distress
HEENT: Normocephalic, Atraumatic, EOMI, MMM
Respiratory: Bibasilar crackles
Cardiac: Irregularly irregular, tachycardic rate
GI: Soft, Nontender, Nondistended, Normal Bowel Sounds
Extremities: No Clubbing, Cyanosis, or Edema
Anticipated Discharge: > 48 hours
Subjective/Interval History
-
Date of Service: November 06, 2024
Patient has a mild cough. Denies chest pain, shortness of breath, palpitations. No fever, no vomiting. He is tolerating his tube feeds.
Objective Data
-
Labs:
Laboratory Results
11/05/24 11/06/24
21:26 04:15
WBC 12.7 H
Hgb 13.1
Hct 39.3
Plt Count 215
APTT 87.8 H
Sodium 137 139
Potassium 3.9 4.4
Chloride 103 103
Carbon Dioxide 30 29
BUN 41 H 40 H
Creatinine 1.3 1.3
Glucose 175 H 157 H
Calcium 8.8 9.0
Vital Signs:
Vital Signs
Temp Pulse Resp BP Pulse Ox
99 F 105 24 101/69 96
11/06/24 08:00 11/06/24 08:15 11/06/24 08:15 11/06/24 08:09 11/06/24 08:15
I&O
11/05/24 11/06/24 11/07/24
06:59 06:59 06:59
Intake Total 2285.1 / 2292.0 1713.5 / 1829.9 232.8 / 232.8
Output Total 3240 / 3415 2800 / 3070 470 / 470
Balance -954.9 / -1123.0 -1086.5 / -1240.1 -237.2 / -237.2
--- NOTE | 2024-11-06 10:55 | PTCARENOTE ---
CVP zeroed, appears to be inaccurate showing 0 to -2. Portable CXR obtained. KAI Gasca to bedside, adjusted R IJ [place] to 52cm. Repeat CXR to be obtained.
--- NOTE | 2024-11-06 11:45 | CM ---
Reviewed chart. Met with Mr. Dunn to review discharge plans. He states he is feeling okay. Prior to admission he resides with his spouse in a one story home with one step to enter. Prior to admission he was ambulating with a rolling walker and
independent with adls. He has a rolling walker and single point cane at home. He has a prescription plan and uses [facility]. Will continue to follow his porgress in therapy to see if he will have any skilled care needs. If he needs
SNF/Rehab. will need a prior auth. Medical work-up in progress. The discharge plan is to return home with his spouse and [facility] Services verses SNF/Rehab. if indicated when medically stable.
--- NOTE | 2024-11-06 13:30 | PTCARENOTE ---
Pt received into ICU Rm [id number] at 1245 as transfer from CVICU. Pt awake and alert at time of arrival. Ox3. following commands and all conversation appropriate. Orientation provided to pt on surroundings/plan of care. Pt received w/ Rt IJ PA catheter
in place-secured at approx 52cm at insertion site hub- confirmed catheter unchanged in length/appearance w/ outgoing RN. Received w/ Milrinone gtt at 0.3mcg/kg/min (6.9ml/hr) and Heparin at 14.5ml/hr both infusing via Lt PICC. Cordis introducer w/
NS @ KVO rate. Jevity 1.5 tube feeding infusing at goal of 60ml/hr w/ 25ml/hr auto water flush. García patent and draining cl. yellow urine. Pt used bedpan for large loose brown BM. Pt denies c/o pain. Call pamela w/in pt reach and safe environment
maintained.
--- NOTE | 2024-11-06 16:40 | PTCARENOTE ---
Pt resting quietly, dtr and renu here to visit. No complaints or changes noted from previous assessment findings.
[2024-11-06] MEDS: LIPITOR 40 MG PO (17:35)
[2024-11-06] MEDS: NOVOLOG FLEXPEN-LOW RESISTANCE 1 UNITS SC (19:21)
[2024-11-06 19:32] LABS: Glucose - Point of Care 151 mg/dl (70-99)
[2024-11-07] VITALS (26 sets, daily range): BP systolic 35–117; BP diastolic 26–97; PULSE 99; O2SAT 97; BMI 25.7
[2024-11-07] MEDS: NOVOLOG FLEXPEN-LOW RESISTANCE 1 UNITS SC ×3 (00:19→18:25)
[2024-11-07] MEDS: LASIX 40 MG IV ×3 (00:20→12:47)
--- NOTE | 2024-11-07 00:30 | PTCARENOTE ---
pt reassessed. remains afib on monitor, on 6L midflow, DHT w/ TF infusing, UOP adequate from layton, heparin/milrinone gtts continue. CO/CI obtained from an. pt denies SOB/CP. CHG bath, layton care, oral care done. call santiago in reach.
[2024-11-07 00:31] LABS: Glucose - Point of Care 165 mg/dl (70-99)
[2024-11-07] MEDS: UNASYN IV ×4 (00:34→18:24)
[2024-11-07 03:28] LABS: Mean Corp Hgb Conc. 33.3 g/dL (33.0-37.0); Mean Corpuscular Hgb 28.9 pg (27.0-31.0); Mean Corpuscular Volume 86.7 fL (80.0-94.0); Mean Platelet Volume 10.8 fL (7.4-10.4); Platelet Count 213 10^3/uL (130-400); Red Cell Dist. Width 14.3 % (11.5-14.5); White Blood Cell Count 15.1 10^3/uL (4.8-10.8)
[2024-11-07 04:00] LABS: APTT 74.3 Sec (23.4-35.0)
[2024-11-07 04:32] LABS: Blood Urea Nitrogen 40 mg/dl (9-20); Calcium 9.1 mg/dl (8.4-10.2); Carbon Dioxide 32 mmol/L (22-30); Chloride 102 mmol/L (98-107); Estimated Creatinine Clearance 40 ml/min; Glucose 127 mg/dl (70-99); Magnesium 2.4 mg/dl (1.6-2.3); Potassium 4.5 mmol/L (3.5-5.1); Sodium 140 mmol/L (135-145); eGFR 54.51
--- NOTE | 2024-11-07 04:48 | PTCARENOTE ---
AM labs sent. no changes in assessment noted. call santiago in reach. heparin/milrinone gtts continue
[2024-11-07] MEDS: NOVOLOG FLEXPEN-LOW RESISTANCE SC (05:07)
[2024-11-07] MEDS: SYNTHROID 75 MCG TUBE (05:07)
[2024-11-07] MEDS: PRIMACOR 20 MG 100 IV ×2 (05:18→18:23)
--- NOTE | 2024-11-07 07:30 | PTCARENOTE ---
Received patient A&Ox3, able to move all 4 extremities, denied pain, on 6L midflow O2 sating at 94%, Afib in the 90s on the monitor, BP stable, RIJ swan catheter in place w/ introducer, CARLOS PICC infusing Heparin@1450unit/hr and
Milrinone@0.3mcg/kg/min, DHT in Left Nare infusing Jevity 1.5@60mL/hr, García Cath intact, draining clear yellow urine.
[2024-11-07] MEDS: PACERONE 200 MG TUBE ×2 (07:46→15:07)
[2024-11-07] MEDS: SINEMET 25-100 1 TABLET TUBE ×2 (07:46→15:07)
[2024-11-07] MEDS: LOW STRENGTH ASPIRIN 81 MG TUBE (07:46)
[2024-11-07] MEDS: PROTONIX IV 40 MG IV (07:46)
[2024-11-07] MEDS: NSS (PRESERVATIVE FREE) 10 ML IV (07:59)
--- NOTE | 2024-11-07 09:02 | W.PN.HOSP.TC ---
Today's Communication/Plan
-
see bold
Assessment / Plan
Assessment / Plan
HPI: 84 y/o male past medical history of paroxysmal atrial fibrillation, hypertension, hyperlipidemia and hypothyroidism who was transferred from [facility] today for urgent cardiac catheterization. Patient initially presented to [place] [facility] last evening. He was admitted to the hospital after he had a syncopal, and was found to be hypoxic as well as in A-Fib with RVR. Overnight his troponin tended up significantly and he was transferred to [facility] for cardiac
catheterization.
Acute Hypoxic Respiratory Failure secondary to Acute Heart Failure with reduced EF and cardiogenic shock with known severe aortic stenosis
-S/p 10/31 cardiac cath with evidence of multivessel disease
-EF 20% with severe
-Apprec cards/CT surg--not surgical candidate-medical management
-Pt needed to go back on BiPAP with 15L O2 due to acute resp distress and dropping sats 11/04/24 likely from decreased lasix--cards aware and restarted more lasix
-Currently requiring 6 L of oxygen today, wean as tolerated
-Status post right heart cath 11/05, continue milrinone and IV Lasix
-11/07, valsartan added with hold parameters for afterload reduction
-Continue IV heparin (likely with conversion back to Eliquis) once able to take PO
-For possible future TAVR once clinically stabilized
Permanent Atrial Fibrillation with RVR noted
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
-S/p digoxin per card, s/p coreg x1 dose
-S/p amio drip, continue on amio PO through Dobhoff
NSTEMI
Multivessel CAD
-s/p cardiac cath with evidence of multivessel disease
-apprec CT surg--not surgical candidate
VERENICE on CKD IIIA
-creat 1.6 -resolved; baseline ~1.2
-layton for now with active diuresis--apprec renal/cards
Probable aspiration pneumonia
Leukocytosis
-CXR noted Moderate CHF
-Suspect superimposed right upper lobe pneumonia?
-WBC count now normal BUT pt having diarrhea on 11/04--likely from tube feeds
-COVID/Flu negative --procal positive--cont unasyn as per money position officer/pulm
Severe dysphagia
-failed bedside fiberoptic swallowing eval
-dobhoff placed, continue tube feeds
-VSE w/ aspiration of all textures
-Appreciate neurology input, patient likely has dysphagia due to Parkinson's
-No GI consult needed at this point
-11/05 Patient started on Sinemet, monitor response
Parkinson's disease
-Appreciate neurology input
-11/05 Patient started on Sinemet, monitor response
Glucose intolerance
-HgbA1c 6.0%
-Continue diabetic diet
-Monitor sugars and continue coverage insulin
Essential Hypertension
-BP running on the low side
-Hold all blood pressure meds
Hyperlipidemia
-Changed pravastatin to Lipitor
Hypothyroidism
-TSH 2.76--Continue levothyroxine
Isolated elevation of AST
-cont to monitor
Left hip pain
- Likely from arthritis, denies trauma
- Monitor
DVT proph--Heparin drip
Code Status--listed as DNR
PT rec HH
Total time spent to see the patient on the floor, examine the patient, review data and lab results, discuss treatment plan with patient, nursing staff around 41 minutes
Updated daughter at bedside 11/06
Physical Exam
General: No acute distress
HEENT: Normocephalic, Atraumatic, EOMI, MMM
Respiratory: Bibasilar crackles
Cardiac: Irregularly irregular, tachycardic rate
GI: Soft, Nontender, Nondistended, Normal Bowel Sounds
Extremities: No Clubbing, Cyanosis, or Edema
Anticipated Discharge: > 48 hours
Subjective/Interval History
-
Date of Service: November 07, 2024
Patient reports feeling better. He continues to have a cough. Denies chest pain, shortness of breath, or palpitations. No fever, no vomiting.
Objective Data
-
Labs:
Laboratory Results
11/07/24
03:20
WBC 15.1 H
Hgb 13.0
Hct 39.0
Plt Count 213
APTT 74.3 H
Sodium 140
Potassium 4.5
Chloride 102
Carbon Dioxide 32 H
BUN 40 H
Creatinine 1.3
Glucose 127 H
Calcium 9.1
Vital Signs:
Vital Signs
Temp Pulse Resp BP Pulse Ox
98.4 F 89 22 104/66 95
11/07/24 07:30 11/07/24 08:43 11/07/24 08:43 11/07/24 08:12 11/07/24 08:43
I&O
11/06/24 11/07/24 11/08/24
06:59 06:59 06:59
Intake Total 1713.5 / 1829.9 3195.7 / 3302.1 212.8 / 212.8
Output Total 2800 / 3070 3260 / 3380 250 / 250
Balance -1086.5 / -1240.1 -64.3 / -77.9 -37.2 / -37.2
--- NOTE | 2024-11-07 10:13 | W.PN.CARDCBS ---
Today's Communication / Plan
-
Cont IV lasix and milrinone and wean O2
Add valsartan with hold parameters for afterload reduction
Impression / Plan
-
PCP: Laura Cm MD
CDY: Jose Luis Mehta MD
IMPRESSION:
Transferred from [facility] to [facility] 10/31/24
Admitted with [facility] with weakness, syncope
Persistent Afib
Afib with RVR on admission to [facility]
Lactic acidosis
Cardiogenic shock
Acute on Chronic HFrEF
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
Acute cardiogenic pulmonary edema
Acute hypoxic respiratory failure
NSTEMI
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
Syncope
Severe peak/mean 48/31 and BAUDILIO 0.28 cm sq by echo at [facility] 10/31/24
VERENICE on CKD3a
HTN
HLD
Hypothyroid
GERD
Thrombophilia
Gout
R/LHC 10/31/24: multivessel CAD details unknown, PCWP 32, PA 55/36, CO/CI 2.77/1.46, SVR 1648
Echo 10/19/23: [facility] study, EF 50-55%, mod LVH, sev
Echo 10/31/24: [facility] study, EF 25-30%, grade 3 diastolic dysfunction, sev peak/mean 48.4/30.9 mmHg and BAUDILIO 0.28 cm sq
Echo 11/01/24: Normal left ventricular size with severely reduced left ventricular systolic function with regional variations, EF estimated 20%. Mild mitral regurgitation. Mild to moderate tricuspid regurgitation. Severe calcific trileaflet aortic
stenosis with mild aortic regurgitation. Although there is some variability of aortic valve gradients and atrial fibrillation, peak aortic valve velocity 416 cm/s with peak/mean gradients 69/44 mmHg. Aortic valve area estimated 0.4-0.5 cm�.
Stroke-volume index 20 cc/m�. DI 0.2 no pericardial effusion. Estimated pulmonary artery systolic pressure 64 mmHg using an estimate right atrial pressure of 10 mmHg
Plan:
-Patient presented to [place] with syncopal episode, shortness of breath and rapid A-fib 10/30/2024. was transferred to [facility] 10/31/24 with acute heart failure, EF 25 to 30% and concern for cardiogenic shock. He ruled in for NSTEMI and LHC showed 3
vessel disease with no clear ACS culprit or PCI options. Also with severe . was not felt to be candidate for CABG/AVR.
-Underwent RHC 11/05 with wedge 37 and CI 1.8, was previously with wedge of 32 and CI 1.46 with SVR 1648 by RHC at [facility].
-Warm and well perfused on exam. PA pressures trending down.
-Continue IV milrinone
-Continue IV lasix 40mg Q6H. Cr stable at 1.3. Wean O2 as able.
-Holding off on BB while on milrinone
-GDMT is limited by marginal BP. Add ARB with tentative plan to eventually transition to Entresto.
-Remains in afib with HRs adequately controlled. Continue amiodarone 200mg TID started this admission.
-OP Eliquis transitioned to IV heparin
-TAVR eval per structural heart team
-Concern for aspiration and is NPO with dobhoff in place. continue abx and tube feeds. GI to evaluate patient. neurology feels possibly Parkinson's as etiology, which would be new diagnosis for patient.
-DNR/DNI code status
HPI: 84 y/o, severe presented with acute on chronic heart failure with hypoxic respiratory failure and pulmonary edema as well as rapid AFib. Treated with IV diuresis as well as BiPap support, IV diltiazem and heparin.
Workup revealed elevated HS troponin 4125, CK/MB 1438/162 peaks. Echo with new decreased systolic function with EF 25-30%, worsening , and apical lateral HK. Transferred to for R/LHC today. On arrival he was dyspneic at rest on 4LNC, SBP 90s.
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
Subjective
Date of Service: November 07, 2024
NAOE. Tells me he feels better today and slept well overnight. Breathing is improved but remains on 6L NC O2.
Objective
Labs:
11/07/24 03:20
11/07/24 03:20
Labs
Hgb 13.0 g/dL (13.0-18.0) 11/07/24 03:20
Hct 39.0 % (39.0-52.0) 11/07/24 03:20
Plt Count 213 10^3/uL (130-400) 11/07/24 03:20
APTT 74.3 Sec (23.4-35.0) H 11/07/24 03:20
Sodium 140 mmol/L (135-145) 11/07/24 03:20
Potassium 4.5 mmol/L (3.5-5.1) 11/07/24 03:20
BUN 40 mg/dl (9-20) H 11/07/24 03:20
Creatinine 1.3 mg/dL (0.7-1.3) 11/07/24 03:20
Glucose 127 mg/dl (70-99) H 11/07/24 03:20
Vital Signs and I&O:
Vital Signs
Temp Pulse Resp BP Pulse Ox
98.4 F 89 22 104/66 95
11/07/24 07:30 11/07/24 08:43 11/07/24 08:43 11/07/24 08:12 11/07/24 08:43
Vital Signs
Temp Pulse Resp BP Pulse Ox
98.4 F 89 22 104/66 95
11/07/24 07:30 11/07/24 08:43 11/07/24 08:43 11/07/24 08:12 11/07/24 08:43
Intake & Output
11/05/24 11/06/24 11/07/24 11/08/24
06:59 06:59 06:59 06:59
Intake Total 2285.1 / 2292.0 1713.5 / 1829.9 3195.7 / 3312.1 525.6 / 525.6
Output Total 3240 / 3415 2800 / 3070 3260 / 3380 400 / 400
Balance -954.9 / -1123.0 -1086.5 / -1240.1 -64.3 / -67.9 125.6 / 125.6
Physical Exam
Physical Exam
Gen: NAD, AA
HEENT: NC/AT, sclera anicteric
Neck: RIJ [place] in place
CV: irregularly irregular, 2/6 WINIFRED
Lungs: No increased WOB on 6L NC
Abd: S/ND
Ext: No LE edema, warm and well perfused
Skin: Dry
Neuro: Non-focal
[2024-11-07 11:58] LABS: Glucose - Point of Care 165 mg/dl (70-99)
--- NOTE | 2024-11-07 12:30 | PTCARENOTE ---
Reassessed the patient, A&Ox3, remains on 6L Midflow, Afib, ongoing tube feeding, Lasix given, UOP adequate, RIJ [place] Cath intact. CARD Dr. Temple started patient on Valsartan to reduce afterload with hold parameters for SBP less than 95.
[2024-11-07] MEDS: DIOVAN 20 MG TUBE (12:44)
[2024-11-07] MEDS: HEPARIN 25000 UNITS/250 ML IV (14:59)
--- NOTE | 2024-11-07 16:00 | PTCARENOTE ---
Reassessed the patient, worked with PT/OT together got pt OOB to chair, no adverse effects seen, RIJ swan catheter in place, VSS within parameters.
--- NOTE | 2024-11-07 17:24 | W.PN.INTV ---
Today's Communication / Plan
Recommendations
- Continue current dose of diuretics
- Follow-up renal function in a.m.
- Follow-up chest x-ray and procalcitonin in a.m.
Assessment
-
Assessment: 84-year-old male with a past medical history of aortic stenosis, A-fib on Eliquis, hyperlipidemia and CKD who presented to [facility] after syncopal event. EKG showed A-fib with RVR with concerning EKG changes with inferior and
anterolateral ST depressions with lateral T wave inversions. CXR also showed interstitial pulmonary edema. He was transferred here to [place] for cardiac catheterization. Patient was hypotensive with concern for cardiogenic shock.
[employer] D[employer]/pulmonary service now consulted for additional management/recommendations.
Chronic medical conditions: Severe , CHF, permanent A-fib on Eliquis, gout, HTN, CKD IIIa, hypothyroidism, GERD, sciatica
#1. Pulmonary edema with acute on suspect chronic HFrEF with cardiogenic shock
-Right heart cath, 11/05, pulmonary capillary wedge pressure significantly elevated at 37
- Currently on Lasix 40 mg IV every 6 hours along with milrinone infusion, continue diuresing, gradually improving
#2. Acute hypoxic respiratory failure, due to #1
- Improving with ongoing diuresis
- No orthopnea, saturating 96% on mid flow, 6 ltr now
#3. Pulmonary HTN, severe
- Group II with elevated PCWP
- Continue diuresis as tolerated
#4. h/o A fib with RVR
- Currently on amiodarone p.o. and heparin infusion
#5. Severe Aortic stenosis
- Likely the etiology of syncope and contributing to decompensated heart failure as well as pulmonary hypertension
#6. Dysphagia with high aspiration risk
- Concern for aspiration pneumonia, currently on Unasyn, continue treatment until 11/08.
- WBC count up to 15.1 today
#7. Elevated troponin likely due to NSTEMI.
- Severe diffuse CAD involving LAD, diagonal branches + RCA
- Currently on aspirin and heparin drip along with atorvastatin.
#8. VERENICE due to cardiorenal syndrome in the setting of CKD
- Creatinine @ 1.3 today, stable
Other medical issues
#Suspected Parkinsonism
#Former tobacco smoker (20-PY Hx - quit 1995)
#Gout
#Hypothyroidism
#Sciatica
Pulmonary services will continue to briefly follow along.
Critical care statement: A total of 42 minutes of critical care time was provided for this patient today. This includes management of unstable vital signs, evaluation of the patient at bedside, reviewing the patient's pertinent medical records
including radiographs, microbiology, laboratory evaluations, and discussion with primary team, consultants, pharmacy, nutrition, physical therapy, case management, charge nurse, critical care nursing, and respiratory therapy.
Data:
Video fluoro exam: 10/2024: Aspiration noted
ECHO 10/2024: Normal left ventricular size with severely reduced left ventricular systolic
function with regional variation
Left ventricular ejection fraction is visually estimated 20%
Mild left ventricular hypertrophy
Normal RV size and systolic function
Left atrial dilatation
Mild mitral regurgitation
Trileaflet calcific aortic valve with severe aortic stenosis and mild aortic
regurgitation. Peak aortic valve velocity 416 cm/s. Peak/mean gradients across
the aortic valve of 69/44 mmHg, respectively. The aortic valve by the
Continuity equation is calculated at 0.4-0.5 cm sq., using a LVOT diameter of
1.9 cm. Stroke-volume index 20 cc/m2.
Mild to moderate tricuspid regurgitation
Estimated pulmonary artery pressure of 64mmHg assuming a right atrial pressure
of 10 mmHg.
No pericardial effusion
No prior available for comparison
[facility] 10/2024: 1: Severe diffuse small vessel disease with what appears to be obstructive disease in the LAD, diagonal branches, and RCA. Given the diffuse pattern of this disease I do not feel that there are any reasonable PCI options. There
certainly does not seem to be evidence for acute coronary syndrome.
2: Cardiogenic shock with very low cardiac output/index. Patient was given IV Lasix 80 mg on the table and appears to be diuresing. He has not required pressors and does appear to be oxygenating better on nasal cannula.
3: Severe aortic stenosis.
[facility] 10/2024: ASSESSMENT:
1: Severely elevated pulmonary pressures with elevated pulmonary capillary wedge pressure.
2: Reduced cardiac output/index but is improved on milrinone compared to prior study performed last Tuesday with the PA sat increasing from 39 to 58%
CXR 11/01/2024:
Moderate CHF. Suspect superimposed right upper lobe pneumonia.
Cannot rule out component of underlying chronic interstitial lung disease.
Subjective Dataa
Subjective Data
Date of Service:
Date of Service: November 07, 2024
Chief Complaint: [employer] Dba Follow Up
Subjective:
Patient comfortably sitting in bed in no acute distress.
Review of Systems
Genitourinary: Other (All 14 systems reviewed and negative except as stated above in the history of present illness.)
Objective Data
Data Reviewed
Vital Signs / I&O / Oxygen:
Vital Signs
Temp Pulse Resp BP Pulse Ox
99.5 F 94 30 106/77 97
11/07/24 15:05 11/07/24 15:07 11/07/24 15:00 11/07/24 15:07 11/07/24 15:00
Intake and Output
11/06/24 11/07/24 11/08/24
06:59 06:59 06:59
Intake Total 1713.5 / 1829.9 3195.7 / 3312.1 1312.6 / 1312.6
Output Total 2800 / 3070 3260 / 3380 896 / 896
Balance -1086.5 / -1240.1 -64.3 / -67.9 416.6 / 416.6
SaO2 97
Nasal Cannula flow liters per 6
minute
Physical Exam
General: Respiratory Distress (negative), Comfortable, Chills (negative), Sweats (negative) and Other (Elderly male in no acute distress)
HEENT: Normocephalic and Anicteric
Cardiovascular: Peripheral Edema (negative) and Other (Tachycardic)
Respiratory: Wheeze (negative), Crackles (Few basilar inspiratory crackles noted), Rhonchi (negative), Non-Labored Respirations and Other (Coarse breath sounds heard bilaterally)
GI: Soft, Non Distended, Non Tender and Normal Bowel Sounds
Neurology: Awake, Alert and Tremors (negative)
Skin: Warm, Dry, Cyanosis (negative) and Jaundice (negative)
Labs/Micro/Reports
Lab Data
11/07/24 03:20
11/07/24 03:20
Laboratory Results
11/07/24
03:20
APTT 74.3 H
Microbiology
11/01/24 10:53 Blood/Venous Blood Culture - Final
No Growth - Final Report
11/01/24 09:23 Blood/Venous Blood Culture - Final
No Growth - Final Report
--- NOTE | 2024-11-07 18:00 | PTCARENOTE ---
Patient's SBP trending in the 80s, notified Dr. Valadez and received orders to hold 18:00 Lasix and 20:00 Valsartan.
[2024-11-07] MEDS: LIPITOR 40 MG PO (18:24)
[2024-11-07 18:27] LABS: Glucose - Point of Care 163 mg/dl (70-99)
--- NOTE | 2024-11-07 19:10 | PTCARENOTE ---
While helping patient with bedpan in bed, patient suddenly had a seizure-like moment before turning. Patient was unresponsive to voice, skin color turned dusky and lips looked cyanotic, INSTRUCTOR BALLROOM DANCING Alcira at bedside assessing patient, daughter Carmen at bedside
didn't want any heroic wishes.
--- NOTE | 2024-11-07 19:20 | W.PN.UPDATE ---
Update Note
Progress Note Update
Patient had a sudden change in heart rhythm, became bradycardic then PEA with few agonal breaths. Patient was DNR, wishes honored and patient's daughter at bedside at time of . pronounced at 1920.
--- NOTE | 2024-11-07 19:40 | W.PN.DEATH ---
Pronouncement of
-
Called to see patient to pronounce.
No spontaneous heart tones or respirations noted.
Patient not responsive to verbal stimuli.
Patient is pronounced .
Time of : 19:20
Date of : 11/07/24
Cause of : acute hypoxemic respiratory failure, acute on chronic congestive heart failure
Family Notified: Yes (family at bedside at time of and notified.)
--- NOTE | 2024-11-08 08:26 | CM ---
Patient on 11/07/24 @ 7:20PM.
== END 2024-11-07 19:20 | disposition expired ==
LOC: ICU 14:34
PROVIDERS: Internal Medicine; Internal Medicine Cardiovascular Disease; Internal Medicine Interventional Cardiology; Nurse Practitioner; Physician Assistant Medical; Radiology Diagnostic Radiology; Specialist; ADMITTING PHYSICIAN Internal Medicine; ATTENDING PHYSICIAN Family Medicine; CONSULT PHYSICIAN Internal Medicine Cardiovascular Disease; CONSULT PHYSICIAN Internal Medicine Critical Care Medicine; CONSULT PHYSICIAN Psychiatry & Neurology Clinical Neurophysiology; CONSULT PHYSICIAN Specialist; CONSULT PHYSICIAN Thoracic Surgery (Cardiothoracic Vascular Surgery)
PROC: 4A023N8 Measurement of Cardiac Sampling and Pressure, Bilateral, Percutaneous Approach (ICD-10-PCS; 2024-11-01)
PROC: B2111ZZ Fluoroscopy of Multiple Coronary Arteries using Low Osmolar Contrast (ICD-10-PCS; 2024-11-01)
PROC: B2151ZZ Fluoroscopy of Left Heart using Low Osmolar Contrast (ICD-10-PCS; 2024-11-01)
PROC: 5A09357 Assistance with Respiratory Ventilation, Less than 24 Consecutive Hours, Continuous Positive Airway Pressure (ICD-10-PCS; 2024-11-01)
PROC: 02HV33Z Insertion of Infusion Device into Superior Vena Cava, Percutaneous Approach (ICD-10-PCS; 2024-11-02)
PROC: 0DH67UZ Insertion of Feeding Device into Stomach, Via Natural or Artificial Opening (ICD-10-PCS; 2024-11-02)
PROC: 4A023N6 Measurement of Cardiac Sampling and Pressure, Right Heart, Percutaneous Approach (ICD-10-PCS; 2024-11-05)
PROC: 02HQ32Z Insertion of Monitoring Device into Right Pulmonary Artery, Percutaneous Approach (ICD-10-PCS; 2024-11-06)
DX: I21.4 Non-ST elevation (NSTEMI) myocardial infarction (principal); I50.23 Acute on chronic systolic (congestive) heart failure; J96.01 Acute respiratory failure with hypoxia; J69.0 Pneumonitis due to inhalation of food and vomit; I48.21 Permanent atrial fibrillation; I13.0 Hypertensive heart and chronic kidney disease with heart failure and stage 1 through stage 4 chronic kidney disease, or unspecified chronic kidney disease; N17.9 Acute kidney failure, unspecified; E87.20 Acidosis, unspecified; D68.69 Other thrombophilia; I47.29 Other ventricular tachycardia; N18.31 Chronic kidney disease, stage 3a; E78.00 Pure hypercholesterolemia, unspecified; I46.9 Cardiac arrest, cause unspecified; E03.9 Hypothyroidism, unspecified; I35.0 Nonrheumatic aortic (valve) stenosis; R73.9 Hyperglycemia, unspecified; I25.10 Atherosclerotic heart disease of native coronary artery without angina pectoris; M48.061 Spinal stenosis, lumbar region without neurogenic claudication; R73.03 Prediabetes; R06.03 Acute respiratory distress; R13.13 Dysphagia, pharyngeal phase; D72.829 Elevated white blood cell count, unspecified; G20.A1 Parkinson's disease without dyskinesia, without mention of fluctuations; K76.0 Fatty (change of) liver, not elsewhere classified; R57.0 Cardiogenic shock; M54.16 Radiculopathy, lumbar region; K21.9 Gastro-esophageal reflux disease without esophagitis; I27.22 Pulmonary hypertension due to left heart disease; M10.9 Gout, unspecified; M25.552 Pain in left hip; Z66 Do not resuscitate; Z90.49 Acquired absence of other specified parts of digestive tract; Z87.891 Personal history of nicotine dependence; Z79.890 Hormone replacement therapy; Z79.01 Long term (current) use of anticoagulants; Z11.52 Encounter for screening for COVID-19
CPT/HCPCS: 93308; 71045; 74018; 74230; 80048; 80053; 80061; 81003; 82248; 82570; 82810; 82962; 83036; 83605; 83735; 84100; 84132; 84145; 84300; 84443; 85025; 85027; 85730; 87040; 87205; 87324; 87449; 87502; 87811; 87899; 92526; 92610; 92611; 92612; 93005; 93321; 93325; 93451; 93460; 94640; 94660; 97110; 97163; 97167; 97530; 97535; C1769; C1894; J1160; J2260; Q9967